=== PATIENT | female | born 1945 | race Two or more races ===

== ENCOUNTER → 2016-05-01 | Outpatient (CLI) | payer MEDICARE ==
--- NOTE | 2016-05-01 14:08 | MM ---
Reason for exam: screening (asymptomatic). Baseline mammogram. History: Family history of breast cancer in 3 sisters. Physical Findings: Nurse did not find any significant physical abnormalities on exam. MG Screening Mammo w CAD Bilateral CC and MLO view(s) were taken. No prior studies available for comparison. The breast tissue is heterogeneously dense. This may lower the sensitivity of mammography. Finding: There are typically benign dystrophic, round calcifications in both breasts. There is no discrete abnormality. These results were verbally communicated with the patient and result sheet given to the patient on 05/01/16. ASSESSMENT: Benign, BI-RAD 2 RECOMMENDATION: Routine screening mammogram of both breasts in 1 year.
--- NOTE | 2016-05-01 14:52 | US ---
EXAMINATION TYPE: US mass soft tissue chest/back DATE OF EXAM: 05/01/2016 1:48 PM COMPARISON: NONE CLINICAL HISTORY: R22.1 Mass L side. Mass for over a year . Been growing for a couple weeks TECHNOLOGIST IMPRESSION: vascular solid mass 4 x 4 x7 cm, multiple sites or 1 contiguous 4-5 mass es Initial images show normal appearing thyroid gland. After this scanning of left neck shows heterogene ous hypoechoic hypervascular solid lesion or lesions. May be one dominant lesion with septations but favor multiple adjacent abnormal lesions. No worrisome fluid collection is seen. IMPRESSION: Suspicious solid supraclavicular masses, abnormal adenopathy or neoplasm is suspected. I maging guided fine-needle aspiration can be performed for tissue analysis. Consider CT correlation to better assess masses and relationship to adjacent structures.
== END | disposition home or self-care (01) ==
LOC: RADMAMWWP 12:33
PROVIDERS: ATTEND Family Medicine
DX: Z12.31 Encounter for screening mammogram for malignant neoplasm of breast (principal); R22.1 Localized swelling, mass and lump, neck; Z80.3 Family history of malignant neoplasm of breast
CPT/HCPCS: 76536; G0202

== ENCOUNTER → 2016-05-08 | Outpatient (CLI) | payer MEDICARE ==
[2016-05-08 16:37] LABS: Blood Urea Nitrogen 15 mg/dL (7-17); Non-African American GFR(MDRD) >60 (>60 ml/min/1.73 sqM)
--- NOTE | 2016-05-08 17:52 | CT ---
EXAMINATION TYPE: CT soft tissue neck w con DATE OF EXAM: 05/08/2016 5:02 PM COMPARISON: NONE HISTORY: 70-year-old female has lump to left side of neck for the past couple of years but getting mu ch larger. TECHNIQUE: Contiguous axial scanning of the neck performed with IV Contrast, patient injected with 10 0 mL of Omnipaque 300. Coronal/sagittal reconstructions performed. CT DLP: 281.0 mGycm Automated exposure control for dose reduction was used. FINDINGS: Partially calcified 1.2 cm right thyroid lobe nodule. Submandibular and parotid glands appear satisfa ctory. Visualized orbits and globes and mastoid air cells are clear. Lobulated mucosal thickening floor of t he left maxillary sinus with a 1.6 cm polyp or mucosal retention cyst. The nasopharynx is clear. The oropharynx is clear. The glottic and subglottic structures as well as the tracheal column and vis ualized upper lungs are clear. Epiglottis and prevertebral soft tissues within normal limits. There is left-sided cervical lymphadenopathy spanning from the upper cervical to lower cervical regio n and back to station 5. Lymph nodes measure up to 1.8 cm upper cervical region, station 2, axial shira ge 50 and sagittal image 48 and with bulky lymphadenopathy extending down to the left supraclavicular region measuring up to 3.3 cm. Additional lymphadenopathy extends to the left thoracic inlet with co nglomerate nodes measuring up to 6.1 cm wide, axial image 25. There is also left axillary lymphadenop athy seen measuring up to 1.4 cm. Lymphadenopathy is mass effect onto the left internal jugular vein with significant narrowing or extr insic compression near the left brachiocephalic vein confluence. Degenerative disc disease particularly at C5-C6. IMPRESSION: BULKY LEFT CERVICAL LYMPHADENOPATHY MEASURING UP TO 3.3 CM WITH LYMPHADENOPATHY EXTENDING DOWN TO THE SUPRACLAVICULAR REGION AND INTO THE LEFT THORACIC INLET. SUGGESTION OF LEFT AXILLARY LYMPHADENOPATHY MEASURING UP TO 1.4 CM WELL. LYMPHOMA IS THE PRIMARY DIFFERENTIAL CONSIDERATION. METASTATIC DISEA SE IS ALSO POSSIBLE. DIRECT TISSUE SAMPLING SHOULD BE CONSIDERED.
== END | disposition home or self-care (01) ==
LOC: RADCTMAIN 15:54
PROVIDERS: ATTEND Family Medicine
DX: R59.0 Localized enlarged lymph nodes (principal)
CPT/HCPCS: 82565; 84520; 70491; 36415; Q9967

== ENCOUNTER 2016-05-20 08:44 | Day surgery (SDC) | payer MEDICARE ==
[2016-05-20 09:25] VITALS: RESP 16; TEMP 98
[2016-05-20] MEDS ORDERED: ALPRAZolam 0.25 MG TAB PO STA (09:25)
[2016-05-20] MEDS ORDERED: amLODIPine 5 MG TAB PO STA (10:03)
[2016-05-20 11:32] VITALS: PULSE 90
--- NOTE | 2016-05-20 11:45 | US ---
EXAMINATION TYPE: US fine needle aspiration, US core biopsy lymph node DATE OF EXAM: 05/20/2016 11:20 AM HISTORY: Lymphadenopathy . FINDINGS: Maximal barrier technique was utilized. The skin overlying a suitable path to the patient' s mass was localized with ultrasound and the overlying skin prepped and draped. Ultrasound was utili zed with sterile technique. Lidocaine was used for local anesthesia. A single pass with a 25-gauge n eedle, single pass with a 21-gauge needle made with ultrasound guidance and aspirated specimens of th e mass were submitted to cytology. A skin jessica was made with a scalpel. An 18-gauge needle was adva nced under direct ultrasound guidance and core specimen obtained of the mass. Specimen submitted in formalin to Pathology. Following the procedure, hemostasis achieved and the patient is discharged in stable condition without complication. IMPRESSION:STATUS POST ULTRASOUND GUIDED CORE BIOPSY OF left neck adenopathy, MASS, PATHOLOGY IS PEND ING. Fine-needle aspiration also performed. THIS PROCEDURE IS PERFORMED BY THE UNDERSIGNED.
[2016-05-20 11:54] VITALS: BP 169/87
== END 2016-05-20 11:56 | disposition home or self-care (01) ==
LOC: RADPROMAIN 08:44
PROVIDERS: ATTEND Family Medicine
DX: R59.0 Localized enlarged lymph nodes (principal)
CPT/HCPCS: 10022; 38505; 76942; 88173; 88305; 88341; 88342; 88365

== ENCOUNTER 2016-06-24 13:24 | Day surgery (SDC) | payer MEDICARE ==
[2016-06-20 12:13] VITALS: BMI 25.4
[~2016-06-24 13:24] MED LIST: DEXAMETHASONE SOD PHOSPHATE 10 MG/ML 1 ML VIAL IV ONE; HEPARIN SODIUM,PORCINE 5,000 UNIT/ML 1 ML VIAL SQ ONE; HYDROmorphone 1 MG/ML 1 ML SYRINGE IVP PRN; LIDOCAINE 1% 20 ML VIAL (10MG/ML) FOR IV START INTRADERMA PRN; MIDAZOLAM 2 MG/2 ML VIAL IV PRN; ONDANSETRON 4 MG/2 ML VIAL IVP ONE; Pre Op ABX Message 1 EACH MISC MISCELLANE ONE; SCOPOLAMINE 1.5MG/72HR PATCH TRANSDERM ONE
[2016-06-24 13:49] VITALS: TEMP 97.7
[2016-06-24] MEDS: LACTATED RINGERS 1,000 ML IV SCH ×4 (13:52→18:43)
[2016-06-24] MEDS ORDERED: HEPARIN SODIUM,PORCINE 5,000 UNIT/ML 1 ML VIAL SQ ONE (15:38)
[2016-06-24] MEDS ORDERED: MIDAZOLAM 2 MG/2 ML VIAL ONE (15:52)
[2016-06-24] MEDS ORDERED: fentaNYL (PF) 50 MCG/ML 2 ML AMP ONE (15:52)
[2016-06-24] MEDS ORDERED: SUCCINYLCHOLINE CHLORIDE 100 MG/5 ML SYR IV ONE (15:52)
[2016-06-24] MEDS ORDERED: LIDOCAINE 1% INJ 10MG/ML (20 ML MDV) ONE (15:52)
[2016-06-24] MEDS ORDERED: KETAMINE 10 MG/ML 20 ML VIAL ONE (15:52)
[2016-06-24] MEDS ORDERED: PROPOFOL 10 MG/ML 20 ML VIAL IV ONE (15:52)
[2016-06-24] MEDS ORDERED: SODIUM CHLORIDE 0.9% 100 ML with ceFAZolin 2,000 MG IV ONE ×2 (16:04)
[2016-06-24] MEDS ORDERED: LIDOCAINE 1% INJ 10MG/ML (20 ML MDV) SQ ONE ×2 (16:22)
--- NOTE | 2016-06-24 16:43 | P.OP ---
Date of Procedure: 06/24/16 Preoperative Diagnosis: Left cervical lymphadenopathy, possible Hodgkin's lymphoma Postoperative Diagnosis: Same Procedure(s) Performed: Left cervical node biopsy Anesthesia: YAMILETHA Surgeon: Jessica Moreira Estimated Blood Loss (ml): 10 IV fluids (ml): 600 Pathology: other (Left cervical node) Condition: stable Disposition: PACU Indications for Procedure: Left cervical adenopathy or biopsy noninclusive Operative Findings: Large left cervical mass Description of Procedure: Patient was taken to the operating room and following induction of general anesthesia the left neck was prepped and draped in a sterile fashion. A supraclavicular incision was made over the area of palpable abnormality. Approximately 4 x 3 cm lymphoid mass was removed. This was done using the Harmonic scalpel as well as suture ligating the soft tissues that were connected this to the surrounding tissues. After we were assured that hemostasis was attained the lesion was sent fresh to pathology. Prior to this a conversation with Dr. Garcia from pathology was entertained and he requested that the specimen was be fresh. We obtained confirmation that the specimen arrived in pathology. All instrument and sponge counts were correct at the end of the case. Patient tolerated procedure in stable condition.
--- NOTE | 2016-06-24 16:45 | P.DS ---
Providers Attending physician: Jessica Moreira Primary care physician: Darcy Santacruz MD Plan - Discharge Summary New Discharge Prescriptions: HYDROcodone/APAP 5-325MG [[place] 5] 1 - 2 each PO Q4H PRN #20 tab PRN Reason: Pain Discharge Medication List Biotin 5,000 mcg PO DAILY 05/07/16 [History] Cholecalciferol [Vitamin D3] 2,000 unit PO DAILY 05/07/16 [History] Lisinopril [Zestril] 10 mg PO QAM 05/07/16 [History] amLODIPine [Norvasc] 10 mg PO QAM 06/20/16 [History] HYDROcodone/APAP 5-325MG [[place] 5] 1 - 2 each PO Q4H PRN #20 tab 06/24/16 [Rx] Follow up Appointment(s)/Referral(s): Jessica Moreira MD [STAFF PHYSICIAN] - 1 Week Mejia Chester MD [STAFF PHYSICIAN] - 1 Week Activity/Diet/Wound Care/Special Instructions: Do not drive today Discharge Disposition: HOME SELF-CARE
[2016-06-24] MEDS ORDERED: LACTATED RINGERS 1,000 ML IV ONE (17:43)
[2016-06-24 18:40] VITALS: BP 176/96; PULSE 107; RESP 20
== END 2016-06-24 18:47 | disposition home or self-care (01) ==
LOC: OR 13:24
PROVIDERS: ATTEND Surgery
DX: C81.41 Lymphocyte-rich Hodgkin lymphoma, lymph nodes of head, face, and neck (principal); I10 Essential (primary) hypertension; Z79.899 Other long term (current) drug therapy
CPT/HCPCS: 38510; 88184; 88185; 88342; 88307; 88341; J2250; J1100; J2405; J2001; J3010; J0690; J0330; J2704

== ENCOUNTER → 2016-07-12 | Outpatient (CLI) | payer MEDICARE ==
--- NOTE | 2016-07-16 10:47 | PE ---
Nuclear medicine PET/CT HISTORY: Neck mass Patient received 12.2 mCi F-18 FDG intravenously and delayed scanning was performed from the skull ba se through the mid thighs. Localization and attenuation correction CT scan was also performed. Correlation to neck CT dated 08 May 2016 Neck and chest: There are multiple nodes including left axillary adenopathy, and cervical adenopathy extending deep t o the sternocleidomastoid muscle on the left to the level of the hyoid bone and inferiorly to the sup raclavicular region, there is corresponding hypermetabolic uptake, SUV values approximately 4-16. The re is no evident lung mass. No pleural or pericardial effusion. The heart is enlarged. There are leanna nary artery calcifications present. No suspicious hypermetabolic uptake within the mediastinum. Infla mmatory changes noted in the left maxillary sinus Abdomen pelvis: There is no retroperitoneal adenopathy. Spleen is enlarged. No suspicious hypermetabo lic uptake. Osseous structures are unremarkable IMPRESSION: Findings compatible with patient's history of lymphoma in the distribution described.
== END | disposition home or self-care (01) ==
LOC: RADPETMAIN 11:27
PROVIDERS: ATTEND Internal Medicine Hematology & Oncology
DX: C81.41 Lymphocyte-rich Hodgkin lymphoma, lymph nodes of head, face, and neck (principal)
CPT/HCPCS: 78815

== ENCOUNTER 2016-07-15 06:18 | Day surgery (SDC) | payer MEDICARE ==
[2016-07-11 10:24] VITALS: BMI 25.4
[~2016-07-15 06:18] MED LIST changes: -DEXAMETHASONE SOD PHOSPHATE 10 MG/ML 1 ML VIAL IV ONE; -HEPARIN SODIUM,PORCINE 5,000 UNIT/ML 1 ML VIAL SQ ONE; -HYDROmorphone 1 MG/ML 1 ML SYRINGE IVP PRN; +LACTATED RINGERS 1,000 ML IV SCH; -LIDOCAINE 1% 20 ML VIAL (10MG/ML) FOR IV START INTRADERMA PRN; -MIDAZOLAM 2 MG/2 ML VIAL IV PRN; -ONDANSETRON 4 MG/2 ML VIAL IVP ONE; -Pre Op ABX Message 1 EACH MISC MISCELLANE ONE; -SCOPOLAMINE 1.5MG/72HR PATCH TRANSDERM ONE
[2016-07-15] MEDS ORDERED: LACTATED RINGERS 1,000 ML IV ONE (06:53)
[2016-07-15 07:01] VITALS: RESP 16; TEMP 96.9
[2016-07-15] MEDS ORDERED: fentaNYL (PF) 50 MCG/ML 2 ML AMP ONE (07:11)
[2016-07-15] MEDS ORDERED: MIDAZOLAM 2 MG/2 ML VIAL ONE (07:11)
[2016-07-15] MEDS ORDERED: PROPOFOL 10 MG/ML 20 ML VIAL IV ONE (07:11)
[2016-07-15] MEDS ORDERED: LIDOCAINE 1% INJ 10MG/ML (20 ML MDV) ONE (07:11)
[2016-07-15 08:00] VITALS: BP 164/81; PULSE 82
[2016-07-15 08:06] LABS: Basophils % (A) 1 %; CH 28.9; CHCM 34.8; Eosinophils # (A) 0.1 k/uL (0-0.7); Eosinophils % (A) 2 %; HCT 39.7 % (34.0-46.0); HDW 2.81; HGB 13.5 gm/dL (11.4-16.0); Luc # (Auto) 0.14; Luc % (Auto) 3; Lymphocytes # (A) 1.1 k/uL (1.0-4.8); Lymphocytes % (A) 20 %; MCH 28.5 pg (25.0-35.0); MCHC 34.1 g/dL (31.0-37.0); MCV 83.4 fL (80.0-100.0); Mean Platelet Volume 7.3; Monocytes # (A) 0.3 k/uL (0-1.0); Monocytes % (A) 5 %; Neutrophils # (A) 3.8 k/uL (1.3-7.7); Neutrophils % (A) 70 %; RBC 4.76 m/uL (3.80-5.40); RDW 13.3 % (11.5-15.5); WBC 5.4 k/uL (3.8-10.6); WBC (Perox) 5.56
--- NOTE | 2016-07-15 12:29 | PCN ---
DATE OF PROCEDURE: 07/15/2016 PREOPERATIVE DIAGNOSIS: Hodgkin's disease. POSTOPERATIVE DIAGNOSIS: Hodgkin's disease. PROCEDURE: Bone marrow aspirate and biopsy. SITE: Right iliac crest. DETAILS: Utilizing sterile technique, the skin overlying the right iliac crest was prepped with Betadine and alcohol. After adequate sterile draping, systemic sedation and local anesthesia with 1% lidocaine, a size 11, 4-inch Jamshidi needle was utilized to access the periosteum with ease. A total of 16 ( ) of aspirate were obtained and ( ) cm bone core biopsy. The patient tolerated the procedure extremely well. There was no immediate procedure-related complication. Total blood less than 1 mL, results pending.
== END 2016-07-15 08:18 | disposition home or self-care (01) ==
LOC: OR 06:18
PROVIDERS: ATTEND Internal Medicine Hematology & Oncology
DX: C81.90 Hodgkin lymphoma, unspecified, unspecified site (principal); I10 Essential (primary) hypertension; E78.5 Hyperlipidemia, unspecified; Z87.891 Personal history of nicotine dependence; Z79.899 Other long term (current) drug therapy
CPT/HCPCS: 85025; 38221; J2250; J2001; J3010; J2704; G0364

== ENCOUNTER → 2016-10-11 | Outpatient (CLI) | payer MEDICARE ==
--- NOTE | 2016-10-12 08:59 | PE ---
EXAMINATION TYPE: PET CT fusion skull to thigh DATE OF EXAM: 10/11/2016 COMPARISON: CT neck 05/08/2016 Prior PET/CT: 07/12/2016 HISTORY: Hodgkin's lymphoma TECHNIQUE: Following the intravenous administration of 15.99 mCi of F-18 FDG, whole body images are performed from the skull base to the midthigh. Images are reviewed on the computer in the coronal, a xial, and sagittal planes. Reconstructed rotating images are created on independent workstation and reviewed on the computer. A localization and attenuation correction CT is performed in conjunction with the PET scan. DLP: 281.58 mGycm SCAN: Subsequent follow-up Blood glucose: 100 mg/dL Average Mediastinum SUV: 1.1 Average Liver SUV: 1.7 FINDINGS: NECK: No abnormal uptake THORAX: No abnormal uptake ABDOMEN: No abnormal uptake PELVIS: No abnormal uptake OSSEOUS STRUCTURES: There is diffuse increased uptake throughout all osseous structures including axi al and appendicular skeleton within the [id number]. Findings could be related to prior treatment. LOCALIZATION CT: There are some degenerative changes noted within the cervical spine. There is an enl arged lymph node in the left posterior neck chain with a transverse dimension of 1.7 cm. This does no t have abnormal uptake within SUV value of 0.9. Scattered small shotty lymphadenopathy is present. Ad ditional enlarged left neck adenopathy is evident without abnormal uptake. Coronary artery calcificat ion is noted. The ascending thoracic aorta at the level of the main pulmonary artery is 3.9 cm. The m ain pulmonary artery the bifurcation is 3.0 cm. COMPARISON: Previous abnormal uptake in enlarged lymphadenopathy within the left neck is not evident. Lymph node size has diminished over the interval. IMPRESSION: 1. No suspicious changes for recurrent or metastatic neoplasm. 2. Diffuse increased uptake throughout the axial and appendicular skeleton be compatible with treatme nt. 3. Enlarged adenopathy within the left neck has diminished in size over the interval does not have ab normal uptake at this time on the PET scan.
== END | disposition home or self-care (01) ==
LOC: RADPETMAIN 08:12
PROVIDERS: ATTEND Internal Medicine Hematology & Oncology
DX: C81.41 Lymphocyte-rich Hodgkin lymphoma, lymph nodes of head, face, and neck (principal); R59.0 Localized enlarged lymph nodes; R94.8 Abnormal results of function studies of other organs and systems
CPT/HCPCS: 78815; A9552

== ENCOUNTER → 2017-04-11 | Outpatient (CLI) | payer MEDICARE ==
--- NOTE | 2017-04-13 10:17 | PE ---
EXAMINATION TYPE: PET CT fusion skull to thigh DATE OF EXAM: 04/11/2017 COMPARISON: Prior PET/CT October 11, [address] neck May 08, 2016. HISTORY: Lymphoma progress study after completing radiation treatment in December. History of chemoth erapy through October. Originally diagnosed in neck in April 2016. TECHNIQUE: Following the intravenous administration of 13.47 mCi of F-18 FDG, whole body images are performed from the skull base to the midthigh. Images are reviewed on the computer in the coronal, a xial, and sagittal planes. Reconstructed rotating images are created on independent workstation and reviewed on the computer. A localization and attenuation correction CT is performed in conjunction with the PET scan. SCAN: Subsequent Scan FINDINGS: SKULL BASE AND NECK: No suspicious increased hypermetabolic uptake on current study. Abnormally enla rged posterior cervical lymph nodes are redemonstrated. Largest measures 2.4 x 1.4 cm axial image 27 felt slightly smaller in width versus prior study. CHEST, MEDIASTINUM, AND HILAR REGION: No suspicious increased hypermetabolic uptake is seen. ABDOMEN AND PELVIS: No suspicious increased hypermetabolic uptake is seen. OSSEOUS STRUCTURES: No suspicious increased hypermetabolic uptake is seen on current study; interval improvement in mild diffuse hypermetabolic seen from prior study. OTHER CT: There is stable right internal jugular Mediport catheter with tip in SVC. There is persistent mucosal thickening inferior maxillary sinuses bilaterally. There is three-vessel coronary artery calcification which is noted marker for coronary artery disease redemonstrated. There is cardiomegaly with tiny pericardial effusion redemonstrated. There is moderate atherosclerotic change of aorta extending into pelvic branch vessels. Uterus is surgically absent. Scattered pelvic phleboliths are seen. There is multilevel facet arthropathy in the mid to lower lumbar spine. IMPRESSION: Marked interval improvement with treatment. No suspicious hypermetabolic uptake seen to suggest recurrent neoplasm. Left-sided neck lymph nodes are not enlarging.
== END | disposition home or self-care (01) ==
LOC: RADPETMAIN 08:17
PROVIDERS: ATTEND Internal Medicine Hematology & Oncology
DX: C81.41 Lymphocyte-rich Hodgkin lymphoma, lymph nodes of head, face, and neck (principal)
CPT/HCPCS: 78815; A9552

== ENCOUNTER → 2017-06-30 | Outpatient (CLI) | payer MEDICARE ==
--- NOTE | 2017-07-01 11:04 | MM ---
Reason for exam: screening (asymptomatic). Last mammogram was performed 1 year and 2 months ago. History: Family history of breast cancer in 3 sisters. Physical Findings: A clinical breast exam by your physician is recommended on an annual basis and results should be correlated with mammographic findings. MG 3D Screening Mammo W/Cad Bilateral CC and MLO view(s) were taken. Prior study comparison: May 01, 2016, bilateral MG screening mammo w CAD. The breast tissue is heterogeneously dense. This may lower the sensitivity of mammography. Finding: There are typically benign calcifications in both breasts. No suspicious abnormality. ASSESSMENT: Benign, BI-RAD 2 RECOMMENDATION: Routine screening mammogram of both breasts in 1 year.
== END | disposition home or self-care (01) ==
LOC: RADMAMWWP 07:57
PROVIDERS: ATTEND Family Medicine
DX: Z12.31 Encounter for screening mammogram for malignant neoplasm of breast (principal)
CPT/HCPCS: 77063; 77067

== ENCOUNTER 2017-07-31 10:16 | Day surgery (SDC) | payer MEDICARE ==
[2017-07-29 10:08] VITALS: BMI 23.6
[2017-07-31 13:01] VITALS: TEMP 97.9
[2017-07-31] MEDS ORDERED: LIDOCAINE 1% 20 ML VIAL (10MG/ML) FOR IV START INTRADERMA ONE (13:10)
[2017-07-31] MEDS ORDERED: LIDOCAINE 1% INJ 10MG/ML (20 ML MDV) ONE (14:20)
[2017-07-31] MEDS ORDERED: PROPOFOL 10 MG/ML 20 ML VIAL IV ONE (14:20)
[2017-07-31 14:42] VITALS: RESP 18
--- NOTE | 2017-07-31 14:47 | P.PCN ---
Date of Procedure: 07/31/17 Procedure(s) Performed: PREOPERATIVE DIAGNOSIS: Colon cancer screening POSTOPERATIVE DIAGNOSIS: Minimal diverticulosis PROCEDURE: Colonoscopy ANESTHESIA: MAC SURGEON: Adilson Michael M.D. SPECIMENS: None ENDOSCOPIC PROCEDURE: The patient was placed on the endoscopy table in the left decubitus position. The Olympus colonoscope was inserted into the anus and passed under direct visualization to the base of the cecum. The appendiceal orifice was visualized. From that point the scope was slowly withdrawn inspecting all surfaces carefully. There were no neoplastic inflammatory or polypoid lesions throughout the cecum, ascending, transverse, descending, sigmoid and rectum. There was minimal diverticulosis noted. Digital rectal examination was normal. The patient was taken to the recovery room in stable condition per anesthesia guidelines. RECOMMENDATIONS: Increase fiber.
[2017-07-31 15:06] VITALS: BP 161/79; PULSE 73
== END 2017-07-31 15:15 | disposition home or self-care (01) ==
LOC: ORWHC2ENDO 10:16
PROVIDERS: ATTEND Surgery
DX: Z12.11 Encounter for screening for malignant neoplasm of colon (principal); K57.90 Diverticulosis of intestine, part unspecified, without perforation or abscess without bleeding; I10 Essential (primary) hypertension; M19.90 Unspecified osteoarthritis, unspecified site; E78.5 Hyperlipidemia, unspecified; Z79.899 Other long term (current) drug therapy
CPT/HCPCS: J2001; J2704; G0121

== ENCOUNTER → 2017-10-10 | Outpatient (CLI) | payer MEDICARE ==
--- NOTE | 2017-10-10 14:14 | PE ---
EXAMINATION TYPE: PET CT fusion skull to thigh DATE OF EXAM: 10/10/2017 COMPARISON: Prior PET/CT April 11, 2017 and older studies. HISTORY: Lymphoma. Originally diagnosed in neck in 2017. Completed chemotherapy October 2016 and radiation treatment in November 2016 TECHNIQUE: Following the intravenous administration of 13.216 mCi of F-18 FDG, whole body images are performed from the skull base to the midthigh. Images are reviewed on the computer in the coronal, axial, and sagittal planes. Reconstructed rotating images are created on independent workstation and reviewed on the computer. A noncontrast CT is performed in conjunction with the PET scan. SCAN: Subsequent Scan FINDINGS: AVERAGE SUV MEDIASTINUM: 0.76 AVERAGE SUV LIVER: 2.23 SKULL BASE AND NECK: There is no new suspicious hypermetabolic uptake in the left sided neck lymph n odes. There is stable or slightly less prominent low dense enlarged left posterior cervical triangle lymph node for reference measuring 2.2 x 1.2 cm on axial image 34 and adjacent prominent but subcenti meter lymph nodes. No significant change in size of the adenopathy is noted. In particular no suspici ous enlargement is seen. CHEST, MEDIASTINUM, AND HILAR REGION: No new areas of abnormal hypermetabolic uptake. ABDOMEN AND PELVIS: No suspicious areas of abnormal hypermetabolic uptake. Mild symmetric uptake near level of both hip joints involving adjacent muscles axial image 188 favors mild inflammation. OSSEOUS STRUCTURES: No new focal areas of suspicious hypermetabolic uptake. OTHER CT: There is interval removal of right internal jugular Mediport catheter. There is persistent mild to moderate lobulated mucosal thickening anterior inferior left maxillary si nus. Mild to moderate calcified plaque bilateral carotid bulbs, left greater than right is redemonstr ated. There is three-vessel coronary artery calcification which is noted marker for coronary artery disease redemonstrated. There is cardiomegaly with tiny pericardial effusion redemonstrated. There is moderate calcified atherosclerotic change of aorta extending into pelvic branch vessels. Den se calcified plaque is seen in tortuous splenic artery. Uterus is surgically absent. Scattered pelvic phleboliths are seen. There is multilevel facet arthropathy in the mid to lower lumbar spine. IMPRESSION: No suspicious new hypermetabolic uptake to suggest neoplastic recurrence.
== END | disposition home or self-care (01) ==
LOC: RADPETMAIN 07:23
PROVIDERS: ATTEND Internal Medicine Hematology & Oncology
DX: C81.41 Lymphocyte-rich Hodgkin lymphoma, lymph nodes of head, face, and neck (principal)
CPT/HCPCS: 78815; A9552

== ENCOUNTER 2018-02-18 15:58 | Emergency (ER) | payer MEDICARE ==
[2018-02-18 16:19] VITALS: TEMP 98
[2018-02-18] MEDS ORDERED: MECLIZINE 12.5 MG TAB PO STA (16:47)
[2018-02-18] MEDS ORDERED: SODIUM CHLORIDE 0.9% 1,000 ML IV STA (16:47)
--- NOTE | 2018-02-18 17:20 | ED ---
Dizziness HPI - General Chief Complaint: Dizziness Stated Complaint: Weakness Time Seen by Provider: 02/18/18 16:30 Source: patient, RN notes reviewed Mode of arrival: wheelchair Limitations: no limitations - History of Present Illness Initial Comments: This is a 72-year-old female with no prior history of vertigo strokes heart disease who states she had the onset this morning of dizziness when she tries to walk or ambulate. She felt like she had a hole onto the wall for stability. She denies any focal weakness to her arms or legs some difficulty with vision mostly with moving her eyes or somewhat moving her head she gets dizzy. No headaches earache sore throat or nose cough no palpitations no other symptoms. She does states she has a remote history of cataract surgery. Additionally she does have recent history of a upper respiratory infection. Per family member stated that she was actually well last night before she went to bed. MD Complaint: dizziness, difficulty walking - Related Data Home Medications Medication Instructions Recorded Confirmed Biotin 10,000 mcg PO PC-SUPPER 05/07/16 02/18/18 Cholecalciferol [Vitamin D3] 2,000 unit PO PC-SUPPER 05/07/16 02/18/18 amLODIPine [Norvasc] 10 mg PO QAM 06/20/16 02/18/18 Turmeric Root Extract [Turmeric] 1,000 mg PO PC-SUPPER 07/11/16 02/18/18 Losartan [Cozaar] 75 mg PO DAILY 07/29/17 02/18/18 Previous Rx's Medication Instructions Recorded Meclizine [Antivert] 25 mg PO TID #20 tab 02/18/18 Allergies Allergy/AdvReac Type Severity Reaction Status Date / Time No Known Allergies Allergy Verified 02/18/18 17:37 Review of Systems ROS Statement: Those systems with pertinent positive or pertinent negative responses have been documented in the HPI. ROS Other: All systems not noted in ROS Statement are negative. Past Medical History Past Medical History: Cancer, Hyperlipidemia, Hypertension, Osteoarthritis (OA) , Skin Disorder Additional Past Medical History / Comment(s): Hodgkins's Lymphoma. RT Sacroiliac Joint Arthritis. BORDERLINE HIGH CHOLESTEROL. DRY PATCH ON RT ELBOW. History of Any Multi-Drug Resistant Organisms: None Reported Past Surgical History: Adenoidectomy, Hysterectomy, Tonsillectomy, Tubal Ligation Additional Past Surgical History / Comment(s): CERVICAL Lymph node bx, Eye surgery for cysts. BONE MARROW BIOPSY. Past Anesthesia/Blood Transfusion Reactions: No Reported Reaction Additional Past Anesthesia/Blood Transfusion Reaction / Comment(s): unknown family hx . no hx blood transfusion. Past Psychological History: No Psychological Hx Reported Smoking Status: Former smoker Past Alcohol Use History: None Reported Past Drug Use History: None Reported - Past Family History Sister(s) Family Medical History: Cancer Additional Family Medical History / Comment(s): 3 sisters hx breast CA Mother Family Medical History: No Reported History Father Family Medical History: No Reported History General Exam - General Exam Comments Initial Comments: This is a well-developed well-nourished awake alert oriented 3 female Limitations: no limitations General appearance: alert, in no apparent distress Head exam: Present: atraumatic, normocephalic, normal inspection Eye exam: Present: normal appearance, PERRL, EOMI. Absent: scleral icterus, conjunctival injection, periorbital swelling ENT exam: Present: normal exam, mucous membranes moist Neck exam: Present: normal inspection, other (No stridor JVD or bruits). Absent : tenderness, meningismus, lymphadenopathy Respiratory exam: Present: normal lung sounds bilaterally. Absent: respiratory distress, wheezes, rales, rhonchi, stridor Cardiovascular Exam: Present: regular rate, normal rhythm, normal heart sounds. Absent: systolic murmur, diastolic murmur, rubs, gallop, clicks GI/Abdominal exam: Present: soft, normal bowel sounds. Absent: distended, tenderness, guarding, rebound, rigid, bruit, pulsatile mass Extremities exam: Present: normal inspection, full ROM, normal capillary refill. Absent: tenderness, pedal edema, joint swelling, calf tenderness Back exam: Present: normal inspection Neurological exam: Present: alert, oriented X3, CN II-XII intact Psychiatric exam: Present: normal affect, normal mood Skin exam: Present: warm, dry, intact, normal color. Absent: rash Course Vital Signs 02/18/18 16:17 Temperature 98 F Pulse Rate 93 Respiratory 18 Rate Blood Pressure 136/80 O2 Sat by Pulse 97 Oximetry EKG Findings - EKG Results: EKG: interpreted by ERMD, WNL, sinus rhythm, normal axis, normal QRS, normal ST/ T, no acute changes (Normal sinus rhythm of 82. Interval 144 QRS 90 QT since QTC 366/[address]-T wave changes some artifact is noted) Medical Decision Making - Medical Decision Making Reevaluation patient finds that she is no longer dizzy she did have one episode of vomiting she does feel improved now the presentation is consistent with benign positional vertigo. I did discuss this with the patient and her family members were present. Patient will be discharged on appropriate medication she is follow-up with her doctor and return when necessary - Lab Data Result diagrams: 02/18/18 17:05 02/18/18 17:05 Lab Results 02/18/18 02/18/18 02/18/18 Range/Units 17:05 17:05 17:05 WBC 4.9 (3.8-10.6) k/uL RBC 5.19 (3.80-5.40) m/uL Hgb 14.7 (11.4-16.0) gm/dL Hct 43.5 (34.0-46.0) % MCV 83.8 (80.0-100.0) fL MCH 28.3 (25.0-35.0) pg MCHC 33.7 (31.0-37.0) g/dL RDW 13.8 (11.5-15.5) % Plt Count 192 (150-450) k/uL Neutrophils % 82 % Lymphocytes % 12 % Monocytes % 3 % Eosinophils % 2 % Basophils % 0 % Neutrophils # 4.0 (1.3-7.7) k/uL Lymphocytes # 0.6 L (1.0-4.8) k/uL Monocytes # 0.2 (0-1.0) k/uL Eosinophils # 0.1 (0-0.7) k/uL Basophils # 0.0 (0-0.2) k/uL Sodium 142 (137-145) mmol/L Potassium 4.3 (3.5-5.1) mmol/L Chloride 107 (98-107) mmol/L Carbon Dioxide 25 (22-30) mmol/L Anion Gap 10 mmol/L BUN 12 (7-17) mg/dL Creatinine 0.83 (0.52-1.04) mg/dL Est GFR (CKD-EPI)AfAm 81 (>60 ml/min/1.73 sqM) Est GFR (CKD-EPI)NonAf 70 (>60 ml/min/1.73 sqM) Glucose 132 H (74-99) mg/dL Calcium 9.9 (8.4-10.2) mg/dL Magnesium 2.1 (1.6-2.3) mg/dL Total Bilirubin 0.8 (0.2-1.3) mg/dL AST 25 (14-36) U/L ALT 26 (9-52) U/L Alkaline Phosphatase 96 (38-126) U/L Total Creatine Kinase 43 (30-135) U/L CK-MB (CK-2) 0.9 (0.0-2.4) ng/mL CK-MB (CK-2) Rel Index 2.1 Troponin I <0.012 (0.000-0.034) ng/mL Total Protein 8.0 (6.3-8.2) g/dL Albumin 4.6 (3.5-5.0) g/dL TSH 0.325 L (0.465-4.680) mIU/L - Radiology Data Radiology results: report reviewed (I did review the imaging and report no acute findings.), image reviewed Disposition Clinical Impression: Benign paroxysmal positional vertigo Disposition: HOME SELF-CARE Condition: Good Instructions: Dizziness (ED), Benign Paroxysmal Positional Vertigo (ED) Prescriptions: Meclizine [Antivert] 25 mg PO TID #20 tab Is patient prescribed a controlled substance at d/c from ED?: No Referrals: Darcy Santacruz MD [Primary Care Provider] - 1-2 days
[2018-02-18 17:24] LABS: Basophils % (A) 0 %; Eosinophils # (A) 0.1 k/uL (0-0.7); Eosinophils % (A) 2 %; HCT 43.5 % (34.0-46.0); HGB 14.7 gm/dL (11.4-16.0); Lymphocytes # (A) 0.6 k/uL (1.0-4.8); Lymphocytes % (A) 12 %; MCH 28.3 pg (25.0-35.0); MCHC 33.7 g/dL (31.0-37.0); MCV 83.8 fL (80.0-100.0); Mean Platelet Volume 6.9; Monocytes # (A) 0.2 k/uL (0-1.0); Monocytes % (A) 3 %; Neutrophils % (A) 82 %; Platelet Count 192 k/uL (150-450); RBC 5.19 m/uL (3.80-5.40); RDW 13.8 % (11.5-15.5); WBC 4.9 k/uL (3.8-10.6)
[2018-02-18 17:34] LABS: Albumin 4.6 g/dL (3.5-5.0); Calcium 9.9 mg/dL (8.4-10.2); Magnesium 2.1 mg/dL (1.6-2.3); Potassium 4.3 mmol/L (3.5-5.1); Total Bilirubin 0.8 mg/dL (0.2-1.3)
[2018-02-18 17:45] LABS: Creatine Kinase 43 U/L (30-135)
[2018-02-18 17:58] LABS: Creatine Kinase MB 0.9 ng/mL (0.0-2.4); Troponin I <0.012 ng/mL (0.000-0.034)
--- NOTE | 2018-02-18 18:29 | CT ---
EXAMINATION TYPE: CT brain wo con DATE OF EXAM: 02/18/2018 COMPARISON: None HISTORY: weakness, vomiting CT DLP: 1107.4 mGycm Automated exposure control for dose reduction was used. FINDINGS: There is cerebral cortical atrophy. There is no mass effect nor midline shift. There is no sign of in tracranial hemorrhage. Calvarium is intact. There are tiny lacunar infarcts in the left and right ant erior internal capsule. IMPRESSION: CEREBRAL ATROPHY. NO ACUTE INTRACRANIAL ABNORMALITY.
[2018-02-18 18:52] LABS: T4, Free (Free Thyroxine) 0.92 ng/dL (0.78-2.19)
[2018-02-18 19:19] VITALS: BP 162/99; PULSE 75; RESP 14
== END 2018-02-18 19:20 | disposition home or self-care (01) ==
LOC: EC 15:58
DX: H81.10 Benign paroxysmal vertigo, unspecified ear (principal); I10 Essential (primary) hypertension; Z87.891 Personal history of nicotine dependence; Z79.899 Other long term (current) drug therapy; Z85.71 Personal history of Hodgkin lymphoma; Z98.49 Cataract extraction status, unspecified eye; Z53.8 Procedure and treatment not carried out for other reasons
CPT/HCPCS: 36415; 70450; 80053; 82550; 82553; 83735; 84439; 84443; 84484; 85025; 93005; 99284

== ENCOUNTER → 2018-03-05 | Outpatient (CLI) | payer MEDICARE ==
--- NOTE | 2018-03-06 12:10 | MR ---
"EXAMINATION TYPE: MR brain wo/w con DATE OF EXAM: 03/05/2018 COMPARISON: CT brain 02/18/2018 HISTORY: Hodgkin lymphoma, vertigo, left facial numbness TECHNIQUE: Multiplanar, multisequence images of the brain and brainstem is performed without and with IV contras t, utilizing 7.5 mL intravenous Gadavist . FINDINGS: Diffusion weighted images demonstrate small scattered foci of restricted diffusion at the l eft lateral margin of the medulla, inferior cerebellar on the left. There is no extra-axial fluid co llection. Extensive scattered hyperintensities are present on inversion recovery T2-weighted sequence s within the deep white matter, periventricular and pericallosal, 7 juxtacortical white matter. Hyper intensity also noted in the distribution of the lateral aspect of the medulla on the left, inferior l eft cerebellar hemisphere. No evident hemorrhage. 2 small areas of encephalomalacia are noted in the right frontal white matter, additionally at the level left cerebellar hemisphere. The ventricular sys tem and cisternal spaces are normal in size and appearance. The brain volume is age appropriate. Pituitary, cervical medullary junction, corpus callosum, cerebellopontine angles are normal. The unscrambler niocervical junction appears within normal limits. Post contrast images demonstrate some questionabl e minimal enhancement along the left cerebellar hemisphere, only punctate foci likely in the distribu tion of the restricted diffusion and due to patient's subacute infarct. Some punctate enhancement pre sent at the level of the posterior occipital lobes near the cortical surface are noted bilaterally, l esions measure only approximately 3 to 6 mm in size. The dural venous sinuses appear patent. The visu alized sinuses are remarkable for inflammatory change in the maxillary sinuses left greater than righ t, and the globes are intact. 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 Probable chronic small vessel ischemic changes. Additional areas of abnormal enhancement a re indeterminate. Consider follow-up as indicated. A Red level critical message alert has been initiated for Darcy Santacruz MD via the [employer] 36 0 | Critical Results System on 03/06/2018 12:05 PM. This message alert has been sent to Darcy mendez MD via the preferences provided by the clinician for the receipt of Radiology Critical Findings. Message ID [id number]."
== END ==
LOC: RADMRIMAIN 17:27
PROVIDERS: ATTEND Family Medicine
DX: R94.02 Abnormal brain scan (principal); C81.90 Hodgkin lymphoma, unspecified, unspecified site
CPT/HCPCS: 70553; A9585

== ENCOUNTER 2018-03-06 14:01 | Emergency (ER) | payer MEDICARE ==
[2018-03-06 14:09] VITALS: BP 153/80; PULSE 105; RESP 18; TEMP 97.5
--- NOTE | 2018-03-06 16:23 | ED ---
Recheck HPI - General Chief Complaint: Recheck/Abnormal Lab/Rx Stated Complaint: Abn MRI results Time Seen by Provider: 03/06/18 14:18 Source: patient, RN notes reviewed Mode of arrival: ambulatory Limitations: no limitations - History of Present Illness Initial Comments: This is a 72-year-old female history of Hodgkin's lymphoma hypertension hyperlipidemia service arthritis who was sent over here from her doctor's office for further evaluation for vertigo. She did resume his seen in February 18 and diagnosed with vertigo she presented that time with vertiginous-like symptoms that had started upon awaking at morning prior to that she was feeling well. She was given Antivert in the emergency department at that time and was symptom-free by the time she left. She was a follow-up with her doctor which she had done twice now lab work was done which showed no acute abnormality other than her hyperlipidemia which is well-known she did have an MRI done which did show evidence of a subacute infarct along the left lateral margin of the medulla and inferior left cerebral hemisphere. I did discuss the case with Dr. Sanchez, he did recommend transfer as we have no inpatient neurology coverage this time and she'll require further evaluation for possible thromboembolic phenomenon. The patient had no further complaints no headache dizziness other than the intermittent dizziness she recalled with movement of her head no focal weakness she did describe some faint numbness her left side of her face. No other - Related Data Home Medications Medication Instructions Recorded Confirmed amLODIPine [Norvasc] 10 mg PO QAM 06/20/16 03/06/18 Losartan [Cozaar] 75 mg PO DAILY 07/29/17 03/06/18 Biotin 5 mg PO DAILY 03/06/18 03/06/18 Cholecalciferol (Vitamin D3) 2,000 unit PO DAILY 03/06/18 03/06/18 [Vitamin D3] Tumeric (Unknown) 1 tab PO DAILY 03/06/18 03/06/18 Allergies Allergy/AdvReac Type Severity Reaction Status Date / Time No Known Allergies Allergy Verified 03/06/18 14:09 Review of Systems ROS Statement: Those systems with pertinent positive or pertinent negative responses have been documented in the HPI. ROS Other: All systems not noted in ROS Statement are negative. Past Medical History Past Medical History: Cancer, Hyperlipidemia, Hypertension, Osteoarthritis (OA) , Skin Disorder Additional Past Medical History / Comment(s): Hodgkins's Lymphoma. RT Sacroiliac Joint Arthritis. BORDERLINE HIGH CHOLESTEROL. DRY PATCH ON RT ELBOW. History of Any Multi-Drug Resistant Organisms: None Reported Past Surgical History: Adenoidectomy, Hysterectomy, Tonsillectomy, Tubal Ligation Additional Past Surgical History / Comment(s): CERVICAL Lymph node bx, Eye surgery for cysts. BONE MARROW BIOPSY. Past Anesthesia/Blood Transfusion Reactions: No Reported Reaction Additional Past Anesthesia/Blood Transfusion Reaction / Comment(s): unknown family hx . no hx blood transfusion. Past Psychological History: No Psychological Hx Reported Smoking Status: Former smoker Past Alcohol Use History: None Reported Past Drug Use History: None Reported - Past Family History Sister(s) Family Medical History: Cancer Additional Family Medical History / Comment(s): 3 sisters hx breast CA Mother Family Medical History: No Reported History Father Family Medical History: No Reported History General Exam - General Exam Comments Initial Comments: Is a well-developed well-nourished awake alert oriented 3 female Limitations: no limitations General appearance: alert, anxious Head exam: Present: atraumatic, normocephalic, normal inspection Eye exam: Present: normal appearance, PERRL, EOMI. Absent: scleral icterus, conjunctival injection, periorbital swelling ENT exam: Present: normal exam, mucous membranes moist Neck exam: Present: normal inspection. Absent: tenderness, meningismus, lymphadenopathy Respiratory exam: Present: normal lung sounds bilaterally. Absent: respiratory distress, wheezes, rales, rhonchi, stridor Cardiovascular Exam: Present: regular rate, normal rhythm, normal heart sounds. Absent: systolic murmur, diastolic murmur, rubs, gallop, clicks GI/Abdominal exam: Present: soft, normal bowel sounds. Absent: distended, tenderness, guarding, rebound, rigid Extremities exam: Present: normal inspection, full ROM, normal capillary refill. Absent: tenderness, pedal edema, joint swelling, calf tenderness Back exam: Present: normal inspection Neurological exam: Present: alert, oriented X3, CN II-XII intact Psychiatric exam: Present: normal affect, normal mood Skin exam: Present: warm, dry, intact, normal color. Absent: rash Course Vital Signs 03/06/18 14:06 Temperature 97.5 F L Pulse Rate 105 H Respiratory 18 Rate Blood Pressure 153/80 O2 Sat by Pulse 96 Oximetry Medical Decision Making - Medical Decision Making I did review labs and findings from her last visits. I did review the imaging and reports. I did discuss the case with the patient her and daughter and after long discussion the patient has agreed to transfer to [facility] for further evaluation. He was prefer to drive themselves as opposed to take an ambulance. I did discuss this with Dr. Stafford at [facility]. Patient will be going directly there. Disposition Clinical Impression: Vertigo, Brainstem infarction Disposition: OTHER INSTITUTION NOT DEFINED Condition: Stable Instructions: Brain Stem Infarction (DC), Vertigo (ED) Additional Instructions: Go directly to [facility] the emergency department for evaluation Is patient prescribed a controlled substance at d/c from ED?: No Referrals: Darcy Santacruz MD [Primary Care Provider] - 1-2 days - Out of Hospital Transfer - Req. Specs Out of Hospital Transfer - Requested Specifics: Other Emergency Center
== END 2018-03-06 16:36 | disposition other institution (70) ==
LOC: EC 14:01
DX: I63.9 Cerebral infarction, unspecified (principal); R29.700 NIHSS score 0; I10 Essential (primary) hypertension; Z85.72 Personal history of non-Hodgkin lymphomas; Z87.891 Personal history of nicotine dependence; Z79.899 Other long term (current) drug therapy
CPT/HCPCS: 99284

== ENCOUNTER → 2018-03-29 | Outpatient (CLI) | payer MEDICARE ==
--- NOTE | 2018-05-01 12:47 | EM ---
EVENT MONITOR A 30-DAY EVENT MONITOR: DATE OF THE STUDY: March 29, 2018. The patient was monitored for 30 days. The baseline rhythm appeared to be a sinus mechanism. During these 4 weeks of monitoring, the patient did have 2 episodes of paroxysmal atrial tachycardia with a heart rate around 100 beats per minute. The patient was asymptomatic during these episodes. No evidence of any advanced AV block. No evidence of any sinus pause or sinus arrest seen. CONCLUSION: 1. This is a 4-week event monitor. 2. The baseline rhythm is sinus mechanism. 3. The patient did have 2 episodes of narrow complex tachycardia consistent with atrial tachycardia. 4. She was asymptomatic during these episodes of atrial tachycardia. 5. No evidence of sinus pause or sinus arrest. 6. The patient reported no symptoms overall. MMODL / IJN: [id number] /
== END | disposition home or self-care (01) ==
LOC: RADECHMAIN 11:53
PROVIDERS: ATTEND Family Medicine
DX: I63.542 Cerebral infarction due to unspecified occlusion or stenosis of left cerebellar artery (principal)
CPT/HCPCS: 93270; 93271

== ENCOUNTER → 2018-08-05 | Outpatient (CLI) | payer MEDICARE ==
--- NOTE | 2018-08-06 10:32 | MM ---
Reason for exam: screening (asymptomatic). Last mammogram was performed 1 year and 1 month ago. History: Patient is postmenopausal and history of other cancer. Family history of breast cancer in 3 sisters. Physical Findings: A clinical breast exam by your physician is recommended on an annual basis and results should be correlated with mammographic findings. MG 3D Screening Mammo W/Cad Bilateral CC and MLO view(s) were taken. Prior study comparison: June 30, 2017, bilateral MG 3d screening mammo w/cad. May 01, 2016, bilateral MG screening mammo w CAD. The breast tissue is heterogeneously dense. This may lower the sensitivity of mammography. Benign appearing bilateral calcifications. No suspicious abnormality. No significant changes when compared with prior studies. ASSESSMENT: Benign, BI-RAD 2 RECOMMENDATION: Routine screening mammogram of both breasts in 1 year.
== END | disposition home or self-care (01) ==
LOC: RADMAMWWP 10:00
PROVIDERS: ATTEND Family Medicine
DX: Z12.31 Encounter for screening mammogram for malignant neoplasm of breast (principal)
CPT/HCPCS: 77063; 77067

== ENCOUNTER → 2019-08-03 | Outpatient (CLI) | payer MEDICARE ==
--- NOTE | 2019-08-03 13:35 | XR ---
EXAM TYPE: LUMBAR SPINE X RAY SERIES COMPARISON: NONE HISTORY: Right-sided pain TECHNIQUE: 4 views are submitted. FINDINGS: Diffuse osteopenia. Vascular calcifications are seen. There is multilevel degenerative disc disease w ith grade 1 anterolisthesis L3 on 4. Slight retrolisthesis of L4 relative to L5. Vascular calcificati ons are seen. Multilevel facet arthropathy with foraminal encroachment suspected at levels L3-S1. Sli ght anterolisthesis L5 relative to S1. No destructive changes. IMPRESSION: 1. Multilevel degenerative disc disease with anterolisthesis as discussed above. Multilevel foraminal encroachment suspected.
--- NOTE | 2019-08-03 13:45 | XR ---
EXAMINATION TYPE: XR Hip Complete RT DATE OF EXAM: 08/03/2019 COMPARISON: None HISTORY: Low back pain with right sciatica TECHNIQUE: 2 view right hip FINDINGS: Femoral head articulates with the acetabulum. Joint spaces preserved. No acute fractures ar e evident. There appears to be a needle within the soft tissues adjacent to the intertrochanteric region of the right hip. No additional foreign bodies identified. IMPRESSION: 1. No acute osseous abnormality right hip. 2. Metallic foreign body adjacent to the intertrochanteric region of the right hip
== END | disposition home or self-care (01) ==
LOC: RADXRMAIN 12:14
PROVIDERS: ATTEND Family Medicine
DX: M51.36 Other intervertebral disc degeneration, lumbar region (principal); M43.16 Spondylolisthesis, lumbar region; S70.251A Superficial foreign body, right hip, initial encounter
CPT/HCPCS: 72100; 73502

== ENCOUNTER → 2019-08-19 | Outpatient (CLI) | payer MEDICARE ==
--- NOTE | 2019-08-22 10:55 | MM ---
Reason for exam: screening (asymptomatic). Last mammogram was performed 1 year ago. History: Patient is postmenopausal and has history of other cancer at age 71. Family history of breast cancer in 3 sisters. Physical Findings: A clinical breast exam by your physician is recommended on an annual basis and results should be correlated with mammographic findings. MG 3D Screening Mammo W/Cad Bilateral CC and MLO view(s) were taken. Prior study comparison: August 05, 2018, bilateral MG 3d screening mammo w/cad. June 30, 2017, bilateral MG 3d screening mammo w/cad. The breast tissue is heterogeneously dense. This may lower the sensitivity of mammography. Course fat necrosis calcifications medial left breast are unchanged. Scattered benign oil cyst calcifications. No significant changes when compared with prior studies. ASSESSMENT: Benign, BI-RAD 2 RECOMMENDATION: Routine screening mammogram of both breasts in 1 year.
== END | disposition home or self-care (01) ==
LOC: RADMAMWWP 15:19
PROVIDERS: ATTEND Family Medicine
DX: Z12.31 Encounter for screening mammogram for malignant neoplasm of breast (principal); Z80.3 Family history of malignant neoplasm of breast
CPT/HCPCS: 77063; 77067

== ENCOUNTER → 2022-05-21 | Outpatient (CLI) | payer MEDICARE ==
--- NOTE | 2022-05-22 09:46 | MM ---
Reason for Exam: Screening (asymptomatic). Last mammogram was performed 2 year(s) and 9 month(s) ago. Patient History: Menarche at age 10. First Full-Term at age 17. Left ovary removed at age 46. Right ovary removed at age 46. Hysterectomy at age 46. Postmenopausal. Other cancer, age 71. Sister had breast cancer. Sister had breast cancer. Sister had breast cancer. Risk Values: Sarahi 5 year model risk: 8.1%. Prior Study Comparison: 06/30/2017 Bilateral Screening Mammogram, [facility]. 08/05/2018 Bilateral Screening Mammogram, [facility]. 08/19/2019 Bilateral Screening Mammogram, [facility]. Tissue Density: The breast tissue is heterogeneously dense. This may lower the sensitivity of mammography. Findings: Analyzed By CAD. Pattern appears symmetrical and stable. Coarse calcifications within the left breast. Benign-appearing round calcifications are present bilaterally. There is the irregular density measuring 1.6 x 1.1 cm within the medial mid left breast 9:00 position. This is 6 cm from the nipple. This area appears changed from comparison. Additional workup is recommended. Overall Assessment: Incomplete: need additional imaging evaluation, BI-RAD 0 Management: Diagnostic Mammogram of the left breast. Diagnostic Breast Ultrasound of the left breast. A negative mammogram report should not preclude additional follow up of suspicious palpable abnormalities. Patient should continue monthly self breast exam. A clinical breast exam by your physician is recommended on an annual basis and results should be correlated with mammographic findings. Electronically signed and approved by: Reymundo Hoffman D.O. Radiologis
== END | disposition home or self-care (01) ==
LOC: RADMAMWWP 11:22
PROVIDERS: ATTEND Family Medicine
DX: Z12.31 Encounter for screening mammogram for malignant neoplasm of breast (principal); Z78.0 Asymptomatic menopausal state; Z80.3 Family history of malignant neoplasm of breast
CPT/HCPCS: 77063; 77067

== ENCOUNTER → 2022-05-23 | Outpatient (CLI) | payer MEDICARE ==
--- NOTE | 2022-05-23 14:20 | MM ---
Reason for Exam: Follow-up at short interval from prior study. Last screening mammogram was performed less than 1 month ago. Patient History: Menarche at age 10. First Full-Term at age 17. Left ovary removed at age 46. Right ovary removed at age 46. Hysterectomy at age 46. Postmenopausal. Other cancer, age 71. Sister had breast cancer. Sister had breast cancer. Sister had breast cancer. Risk Values: Sarahi 5 year model risk: 8.1%. NCI Lifetime model risk: 14.1%. Prior Study Comparison: 08/05/2018 Bilateral Screening Mammogram, [facility]. 08/19/2019 Bilateral Screening Mammogram, [facility]. 05/21/2022 Bilateral MG 3D screening mammo w/cad, [facility]. Tissue Density: Left: The breast tissue is heterogeneously dense. This may lower the sensitivity of mammography. Findings: Analyzed By CAD. There is a new mass which persists upon spot compression imaging at the approximate 9:00 position left breast. The mass measures approximately 1.5 cm and is 6.3 cm from the nipple. Ultrasound is recommended. Overall Assessment: Incomplete: need additional imaging evaluation, BI-RAD 0 Management: Diagnostic Breast Ultrasound of the left breast. A clinical breast exam by your physician is recommended on an annual basis and results should be correlated with mammographic findings. This exam should not preclude additional follow-up of suspicious palpable abnormalities. Results were given to the patient verbally at the time of exam. Electronically signed and approved by: Robert Rubio M.D. Radiologis
--- NOTE | 2022-05-23 14:47 | USB ---
Reason for Exam: Additional evaluation requested from abnormal screening. Patient History: Menarche at age 10. First Full-Term at age 17. Left ovary removed at age 46. Right ovary removed at age 46. Hysterectomy at age 46. Postmenopausal. Other cancer, age 71. Sister had breast cancer. Sister had breast cancer. Sister had breast cancer. Risk Values: Sarahi 5 year model risk: 8.1%. NCI Lifetime model risk: 14.1%. Technique: Method: Targeted. Prior Study Comparison: 08/05/2018 Bilateral Screening Mammogram, [facility]. 08/19/2019 Bilateral Screening Mammogram, [facility]. 05/21/2022 Bilateral MG 3D screening mammo w/cad, [facility]. Findings: The upper inner quadrant of the left breast and the retroareolar of the left breast were scanned. Lobulated irregular mass at the left 9:00 position measures approximately 1.5 x 1.0 cm with adjacent calcifications. No additional masses seen. Left axilla is free of adenopathy. Overall Assessment: Highly suggestive of malignancy, BI-RAD 5 Management: Ultrasound Core Biopsy of the left breast. A clinical breast exam by your physician is recommended on an annual basis and results should be correlated with mammographic findings. This exam should not preclude additional follow-up of suspicious palpable abnormalities. Results were given to the patient verbally at the time of exam. Electronically signed and approved by: Robert Rubio M.D. Radiologis
== END | disposition home or self-care (01) ==
LOC: RADMAMWWP 13:43
PROVIDERS: ATTEND Family Medicine
DX: R92.8 Other abnormal and inconclusive findings on diagnostic imaging of breast (principal); Z78.0 Asymptomatic menopausal state; Z80.3 Family history of malignant neoplasm of breast
CPT/HCPCS: 77065; 76642; G0279; 77061

== ENCOUNTER → 2022-06-11 | Day surgery (SDC) | payer MEDICARE ==
--- NOTE | 2022-06-18 10:43 | MM ---
Reason for Exam: Post Procedure Mammogram. Last screening mammogram was performed less than 1 month ago. Patient History: Menarche at age 10. First Full-Term at age 17. Left ovary removed at age 46. Right ovary removed at age 46. Hysterectomy at age 46. Postmenopausal. Other cancer, age 71. Sister had breast cancer. Sister had breast cancer. Sister had breast cancer. Risk Values: Sarahi 5 year model risk: 8.1%. NCI Lifetime model risk: 14.1%. Prior Study Comparison: 08/19/2019 Bilateral Screening Mammogram, [facility]. 05/21/2022 Bilateral MG 3D screening mammo w/cad, [facility]. 05/23/2022 Left MG 3D work up w/cad , [facility]. Tissue Density: Left: The breast tissue is heterogeneously dense. This may lower the sensitivity of mammography. Pathology Description: Location: 9 o'clock. Marker Left Behind. Cores: 6 Skin Nicks: 1 Gauge: 13 The procedure of ultrasound guided core biopsy was explained to the patient. Benefits, alternatives, and risks were discussed. An informed consent was then obtained. A timeout was performed. The patient was placed in supine positioning for imaging and for the procedure. The overlying skin was prepped and draped in usual sterile fashion. Lidocaine was used as anesthetic into the skin and subcutaneous tissue up to area of concern in the left breast. A small skin jessica was made with surgical scalpel. Under ultrasound guidance, a 12-gauge vacuum assisted biopsy gun device was used to obtain 6 core samples. A biopsy clip was left in lesion. Hydromark core butterfly marker was placed. The patient tolerated the procedure well without any immediate complication. The patient was kept in the radiology department for short stay after the procedure and then discharged home in stable condition. Postprocedure mammogram: The patient was transferred to mammography for physician ordered post procedure mammogram for clip placement verification. Impression: Successful ultrasound guided core biopsy of area of concern in the left breast, full pathology results to follow. Recommendations: 1. Recommendations are pending pathology results. Pathology Results: Result: Malignant, Invasive ductal carcinoma. LEFT BREAST, NINE O'CLOCK, ULTRASOUND GUIDED NEEDLE CORE BIOPSY: Invasive poorly differentiated ductal carcinoma (grade 3). See Surgical Pathology Cancer Case Summary. Overall Assessment: Malignant Assessment: MG diagnostic mammo LT wo CAD. - Left: Known biopsy proven malignancy, BI-RAD 6. Management: Surgical Consultation of the left breast. Electronically signed and approved by: Reymundo Hoffman D.O. Radiologis
== END ==
LOC: RADUSWWP 07:41
PROVIDERS: ATTEND Surgery
DX: C50.912 Malignant neoplasm of unspecified site of left female breast (principal); Z80.3 Family history of malignant neoplasm of breast; Z78.0 Asymptomatic menopausal state; Z90.722 Acquired absence of ovaries, bilateral
CPT/HCPCS: 88305; 88342; 88341; 77065; 19083; A4648

== ENCOUNTER → 2022-07-24 | Outpatient (CLI) | payer MEDICARE ==
[2022-07-24 13:01] VITALS: BP 176/89; PULSE 93; RESP 18; TEMP 97.8
--- NOTE | 2022-07-24 13:15 | P.PN ---
Subjective Progress Note Date: 07/24/22 Principal diagnosis: [id number] stage IB left breast invasive ductal cancer History of Present Illness H&P Date: 07-24-22 Chief Complaint: invasive ductal cancer left breast Lizette is a 77 year old white female seen in consultation for Dr. Rothman regarding a left breast invasive ductal cancer. She had a bilateral mammogram on 05-21-22 which led to further work up of the left breast. A 1.5 cm lesion was seen at the 9 O clock position for which biopsy on 06-11-22 revealed a grade 3 tripple (-) invasive ductal cancer. This was a routine mammogram. She did not feel anything of concern in her breast. She is not complaining of any nipple discharge or skin changes. She has never had any surgery on her breast. The patient's case was presented at tumor board on 5922. The patient was recommended to undergo genetic testing. Additionally it was felt that she could have a lumpectomy and sentinel node biopsy without any neoadjuvant treatment. Depending on results of the genetic testing the patient may wish for a mastectomy. Genetic testing was performed and is negative. I have called the patient discussed this with the patient. Her surgical date is tentatively August 07. I discussed treatment options with the patient and her 2 daughters. We discussed surgical, radiation, and medical oncology treatments. For surgery we have discussed mastectomy plus or minus reconstruction versus lumpectomy. The patient would prefer to have a lumpectomy. Medical Oncology note 07-11-[address] Chester Caffiene: 2 cups/day nicotine: none chocolate: weekly BCP: 3 years hormones: none Family History; 3 sisters: breast cancer brother: brain cancer patient lymphoma told it was cured treated with chemo and radiation Hormonal History: menarche: 10 breast fed: no, age at first : 17 menopause: hysterectomy at 45 no cancer Surgicall history: Hysterectomy lymphoma Medical History: CVA lymphoma HTN osteoarthritis Social History: nicotine: none alcohol: occasional drugs: none - Constitutional Constitutional: Denies chills, Denies fever - EENT Comment: eye surgery ? type of surgery Ears: bilateral: decreased hearing (hearing aids), deny: tinnitus Ears, nose, mouth and throat: Denies headache, Denies sore throat - Breasts Breasts: bilateral: as per HPI - Cardiovascular Cardiovascular: Denies chest pain, Denies shortness of breath - Respiratory Respiratory: Denies cough - Gastrointestinal Gastrointestinal: Denies abdominal pain, Denies diarrhea, Denies nausea, Denies vomiting - Genitourinary (Female) Genitourinary: Denies dysuria, Denies hematuria - Menstruation Menstruation: Reports postmenopausal - Musculoskeletal Comment: sciatic nerve pain - Integumentary Integumentary: Denies pruritus, Denies rash - Neurological Neurological: Denies numbness, Denies weakness - Psychiatric Psychiatric: Denies anxiety, Denies depression - Endocrine Endocrine: Denies fatigue, Denies weight change - Hematologic/Lymphatic Comment: none - Allergic/Immunologic Allergic/Immunologic: Reports as per HPI Past Medical History Past Medical History: Cancer, Hyperlipidemia, Hypertension, Osteoarthritis (OA) Additional Past Medical History / Comment(s): Hodgkins's Lymphoma. RT Sacroiliac Joint Arthritis. BORDERLINE HIGH CHOLESTEROL. History of Any Multi-Drug Resistant Organisms: None Reported Past Surgical History: Adenoidectomy, Hysterectomy, Tonsillectomy, Tubal Ligation Additional Past Surgical History / Comment(s): CERVICAL Lymph node bx, Eye surgery for cysts. BONE MARROW BIOPSY. Past Anesthesia/Blood Transfusion Reactions: No Reported Reaction Additional Past Anesthesia/Blood Transfusion Reaction / Comment(s): unknown family hx . no hx blood transfusion. Past Psychological History: No Psychological Hx Reported Smoking Status: Former smoker Past Alcohol Use History: Rare Additional Past Alcohol Use History / Comment(s): quit smoking over 54 years ago, smoked very short time as a senior in high school. Past Drug Use History: None Reported - Past Family History Sister(s) Family Medical History: Cancer Additional Family Medical History / Comment(s): 3 sisters hx breast CA Mother Family Medical History: No Reported History Father Family Medical History: No Reported History Medications and Allergies Home Medications Medication Instructions Recorded Confirmed Type amLODIPine [Norvasc] 10 mg PO QAM 06/20/16 06/27/22 History Losartan [Cozaar] 75 mg PO DAILY 07/29/17 06/27/22 History Biotin 5 mg PO DAILY 03/06/18 06/27/22 History Cholecalciferol (Vitamin D3) 2,000 unit PO DAILY 03/06/18 06/27/22 History [Vitamin D3] Tumeric (Unknown) 1 tab PO DAILY 03/06/18 06/27/22 History Aspirin [Adult Low Dose Aspirin EC] 81 mg PO DAILY 05/27/22 06/27/22 History Atorvastatin [Lipitor] 80 mg PO HS 06/27/22 06/27/22 History Cholecalciferol [Vitamin D3 (125 125 mcg PO DAILY 06/27/22 06/27/22 History Mcg = 5000 Iu)] Escitalopram [Lexapro] 10 mg PO DAILY 06/27/22 06/27/22 History Mv,Calcium,Min/Iron/Folic/Vitk 1 each PO DAILY 06/27/22 06/27/22 History [One-A-Day Women's Complete Tab] Allergies Allergy/AdvReac Type Severity Reaction Status Date / Time No Known Allergies Allergy Verified 06/27/22 12:23 Objective - Constitutional General appearance: Present: cooperative - EENT Eyes: Present: EOMI ENT: Present: hearing grossly normal - Neck Neck: Present: normal ROM - Respiratory Respiratory: bilateral: CTA - Cardiovascular Rhythm: regular Heart sounds: normal: S1, S2 - Gastrointestinal General gastrointestinal: Present: soft - Integumentary Integumentary: Present: normal turgor - Musculoskeletal Musculoskeletal: Present: gait normal - Psychiatric Psychiatric: Present: A&O x's 3, appropriate affect, intact judgment & insight - Additional findings Additional findings: Breast Exam: BRA; 36DD Inspection: Bilateral grade 2/3 ptosis Palpation: Right breast: Multiple positional exam fibrocystic changes no dominant masses or nodules of concern Right axilla: No adenopathy of concern Left breast: Multi positional exam 9 o'clock position there is some firmness approximately one and half centimeters in size, no other dominant masses or nodules of concern Left axilla: No adenopathy of concern Assessment and Plan Assessment: Impression: T1 N0 M0 triple negative G3 left breast invasive ductal carcinoma 9:00 Prior history of Hodgkin's lymphoma Family history of cancer Fibrocystic breast changes Hypertension Prior history of CVA Plan: Left breast needle localization lumpectomy, possible onco-plastic tissue transfer, left sentinel node injection, left sentinel node biopsy, possible left axillary node dissection Risk and benefits of the procedure were discussed with the patient and her daughter. Risks include but are not limited to bleeding, infection, reaction to the anesthetic. If the margins were tp be positive further tissue removal may be necessary. Additionally the sentinel node biopsy may result in lymphedema, or decreased sensation to the upper arm. Possible injury to the thoracodorsal or long thoracic nerves are also discussed. The patient and her daughter understand and wish to proceed. CC: Dr. Rothman
== END ==
LOC: WWCWWP 11:58
PROVIDERS: ATTEND Surgery
DX: N60.19 Diffuse cystic mastopathy of unspecified breast (principal); I10 Essential (primary) hypertension; M19.90 Unspecified osteoarthritis, unspecified site; Z80.3 Family history of malignant neoplasm of breast; Z85.71 Personal history of Hodgkin lymphoma; Z86.73 Personal history of transient ischemic attack (TIA), and cerebral infarction without residual deficits; Z87.891 Personal history of nicotine dependence; Z17.1 Estrogen receptor negative status [ER-]; Z98.890 Other specified postprocedural states; E78.00 Pure hypercholesterolemia, unspecified; Z79.82 Long term (current) use of aspirin

== ENCOUNTER → 2022-07-28 | Outpatient (CLI) | payer MEDICARE ==
[2022-07-28 15:59] LABS: ALT 21 U/L; AST 20 U/L; Albumin 4.5 d/dL; Albumin/Globulin Ratio 2.05 Ratio; Alkaline Phosphatase 93 U/L; BUN/Creat Ratio 14.22 Ratio; Blood Urea Nitrogen 12.8 mg/dL; Chloride 108 mmol/L; Globulin 2.2 d/dL; Glucose 115 mg/dL; Potassium 5.4 mmol/L; Sodium 143 mmol/L; Total Bilirubin 0.7 mg/dL; Total Protein 6.7 d/dL
[2022-07-28 16:10] LABS: Basophils # (A) 0.02 X 10*3/uL; Basophils % (A) 0.5 %; Eosinophils # (A) 0.05 X 10*3/uL; Eosinophils % (A) 1.3 %; HCT 42.7 %; HGB 13.7 d/dL; Lymphocytes # (A) 1.19 X 10*3/uL; Lymphocytes % (A) 30.1 %; MCH 27.7 pg; MCHC 32.1 d/dL; MCV 86.4 FL; Mean Platelet Volume 10.2 FL; Monocytes # (A) 0.24 X 10*3/uL; Monocytes % (A) 6.1 %; NRBC Per 100 WBC 0 X 10*3/uL; Neutrophils # (A) 2.44 X 10*3/uL; Neutrophils % (A) 61.5 %; Platelet Count 201 X 10*3/uL; RBC 4.94 X 10*6/uL; RDW 12.6 %; WBC 3.96 X 10*3/uL
== END | disposition home or self-care (01) ==
LOC: LABWHC1 10:43
PROVIDERS: ATTEND Family Medicine
DX: Z01.812 Encounter for preprocedural laboratory examination (principal)
CPT/HCPCS: 36415; 80053; 85025

== ENCOUNTER 2022-07-29 07:18 | Day surgery (SDC) | payer MEDICARE ==
[~2022-07-29 07:18] MED LIST changes: -LACTATED RINGERS 1,000 ML IV SCH; +Pre Op ABX Message 1 EACH MISC MISCELLANE ONE
[2022-07-29] MEDS ORDERED: ALPRAZolam 0.25 MG TAB ONE (08:07)
[2022-07-29] MEDS ORDERED: LIDOCAINE 1% (10MG/ML) FOR IV START INTRADERMA ONE (08:15)
[2022-07-29] MEDS ORDERED: LACTATED RINGERS 1,000 ML IV ONE (08:23)
--- NOTE | 2022-07-29 08:41 | P.NAPBC ---
[facility] Queries [facility] patient's case review presented at [facility] tumor board? If no, comment.: Yes Was patient's pathology reviewed at [facility]? If no, comment.: Yes Was breast conservation surgery offered? If no, comment.: Yes Was sentinel node biopsy offered? If no, comment.: Yes Was diagnosis confirmed by percutaneous core biopsy? If no, comment.: Yes Is patient mastectomy patient?: No [facility] Comments: [id number] invasive ductal cancer left breast Clinical Stage: Stage IB invasive ductal left breast cancer
[2022-07-29 08:44] VITALS: TEMP 98.1
[2022-07-29] MEDS ORDERED: LIDOCAINE 1% INJ 10MG/ML (20 ML MDV) SQ ONE (08:57)
[2022-07-29] MEDS ORDERED: PROPOFOL 10 MG/ML 20 ML VIAL IV ONE (09:33)
[2022-07-29] MEDS ORDERED: fentaNYL (PF) 50 MCG/ML 2 ML AMP ONE (09:33)
[2022-07-29] MEDS ORDERED: LIDOCAINE 2% INJ 20 MG/ML (2 ML VIAL) ONE (09:33)
[2022-07-29] MEDS ORDERED: ePHEDrine 50 MG/ML 1 ML VIAL ONE (09:33)
[2022-07-29] MEDS ORDERED: SUCCINYLCHOLINE CHLORIDE 200 MG/10 ML VIAL IV ONE (09:33)
[2022-07-29] MEDS ORDERED: DEXAMETHASONE SOD PHOSPHATE 4 MG/ML 1 ML VIAL IV ONE ×2 (09:38→09:40)
[2022-07-29] MEDS: ONDANSETRON 4 MG/2 ML VIAL ONE ×2 (09:38→09:40)
[2022-07-29] MEDS: HEPARIN SODIUM,PORCINE/PF 5,000 UNIT/0.5 ML SYRINGE SQ PRN ×2 (09:38→09:40)
--- NOTE | 2022-07-29 11:34 | P.OP ---
Date of Procedure: 07/29/22 Preoperative Diagnosis: Left breast invasive ductal carcinoma stage IB Postoperative Diagnosis: Same Procedure(s) Performed: Left breast needle localization lumpectomy, onco-plastic tissue transfer 64 cm, sentinel node biopsy, superficial node resection Anesthesia: MEGHAN Surgeon: Jessica Moreira Estimated Blood Loss (ml): 15 IV fluids (ml): 600 Pathology: other (Breast tissue, axillary lymph nodes left) Condition: stable Disposition: same day Indications for Procedure: Left breast invasive ductal carcinoma grade 3 triple negative Operative Findings: Fibrofatty breast tissue, palpable cancer left breast Description of Procedure: The patient is a 77-year-old white female who had a biopsy-proven left breast invasive ductal carcinoma grade 3 triple negative. The patient was seen first in the radiology department where needle localization of the lesion was performed. [place] node injection was performed. The patient was then brought up to the operative suite. Following induction of anesthesia interrogation of the axilla using the neoprobe revealed radioactivity. The patient was prepped and draped in a sterile fashion. The left axilla was approached initially. Using the neoprobe an incision was made over the area of greatest radioactivity. The axillary tissue was entered. A sentinel node was identified and the 10 second count was 6519. A second sentinel node was identified in its count was 7251. A third sentinel node was identified and its 10 second count was 7421. A 4th sentinel node was identified and its 10 second count was 3702. The axillary tissues were swept inferiorly from the area of the axillary vein being careful to identify and preserve the thoracodorsal and long thoracic nerves. The axillary contents were removed with the sentinel node specimens. No additional axillary adenopathy of concern was identified. The axillary background 10 second count was 40. After we were assured that hemostasis was attained the axilla was irrigated. The deep tissues were closed using 3-0 Vicryl suture. This was followed by closure of the subcutaneous tissue with 3-0 Vicryl suture. A subcuticular suture was placed using a 4-0 Monocryl. Following this the area of the breast was approached. An incision was made and carried down to the shaft of the needle. Surrounding tissue was excised. The specimen was painted for orientation. Dissection was performed posteriorly onto the pectoralis muscle. Anteriorly skin was removed. Additional tissue was removed superior, inferior, medially and laterally. The cavity is was 6 x 3 cm. The superior pillar 6 x 3 cm was formed. Inferior pillar 6 x 3 cm was formed. Total ankle plastic tissue transfer 64 cm. The specimen was painted for orientation and radiographs revealed that the area of concern had been removed. Titanium clips were placed to belinda the cavity. After we were assured that hemostasis was attained Surgicel in powder form was placed.. The deep layers were closed using 3-0 Vicryl suture. This was followed by closure of the subcutaneous tissue with 3-0 Vicryl suture. The subcuticular closure was performed with 4-0 Monocryl. The skin was closed using nylon. The onco plastic tissue transfer was 64 cm. The patient tolerated the procedure in stable condition. All instrument and sponge counts were correct at the end of the case.
--- NOTE | 2022-07-29 11:36 | P.DS ---
Providers Attending physician: Jessica Moreira Primary care physician: Germán Rothman MD Plan - Discharge Summary Discharge Rx Participant: No New Discharge Prescriptions: No Action amLODIPine [Norvasc] 10 mg PO QAM Losartan [Cozaar] 75 mg PO DAILY Biotin 10,000 mcg PO DAILY Tumeric (Unknown) 1 tab PO DAILY Cholecalciferol (Vitamin D3) [Vitamin D3] 2,000 unit PO DAILY Aspirin [Adult Low Dose Aspirin EC] 81 mg PO DAILY Escitalopram [Lexapro] 10 mg PO DAILY Atorvastatin [Lipitor] 80 mg PO HS Mv,Calcium,Min/Iron/Folic/Vitk [One-A-Day Women's Complete Tab] 1 each PO DAILY Discharge Medication List amLODIPine [Norvasc] 10 mg PO QAM 06/20/16 [History] Losartan [Cozaar] 75 mg PO DAILY 07/29/17 [History] Biotin 10,000 mcg PO DAILY 03/06/18 [History] Cholecalciferol (Vitamin D3) [Vitamin D3] 2,000 unit PO DAILY 03/06/18 [History] Tumeric (Unknown) 1 tab PO DAILY 03/06/18 [History] Aspirin [Adult Low Dose Aspirin EC] 81 mg PO DAILY 05/27/22 [History] Atorvastatin [Lipitor] 80 mg PO HS 06/27/22 [History] Escitalopram [Lexapro] 10 mg PO DAILY 06/27/22 [History] Mv,Calcium,Min/Iron/Folic/Vitk [One-A-Day Women's Complete Tab] 1 each PO DAILY 06/27/22 [History] Follow up Appointment(s)/Referral(s): Jessica Moreira MD [STAFF PHYSICIAN] - 08/06/22 9:20 am Activity/Diet/Wound Care/Special Instructions: Do not drive until seen by Dr. Morris Wear surgical bra at all times May shower after [address] if taking narcotic pain medicine Discharge Disposition: HOME SELF-CARE
[2022-07-29 13:51] VITALS: BP 126/79; PULSE 100; RESP 16
--- NOTE | 2022-07-29 15:11 | NM ---
EXAMINATION TYPE: NM sentinel node injection DATE OF EXAM: 07/29/2022 COMPARISON: 06/11/2022 CLINICAL INDICATION: Female, 77 years old with history of LEFT BREAST CA; TECHNIQUE AND FINDINGS: The procedure of sentinel lymph node injection was explained to the patient. The benefits, alternatives, and risks were discussed. An informed consent was then obtained. Overlying skin is cleaned with sterile alcohol. Following this, 533 uCi Tc99m Tilmanocept was inject ed in the upper outer aspect of the left nipple intradermally. The patient tolerated the procedure well without any immediate complication. The patient was kept in the radiology department for short stay after the procedure and then taken to surgery for surgical p rocedure what is presumed intraoperative gamma probe will be used for sentinel lymph node detection. IMPRESSION: Left breast radiotracer injection for sentinel node localization as above.
--- NOTE | 2022-08-05 08:49 | MM ---
Pathology Description: Approach: Medial to Lateral Needle Type: 7 cm Kopan The procedure of needle localization with wire placement and than surgical excision was explained to the patient. Benefits, alternatives, and risks were discussed. An informed consent was then obtained. The shortest pathway for procedure was chosen. Shortest pathway was a medial approach. The overlying skin was prepped and draped in usual sterile fashion. Lidocaine was used as anesthetic into the skin and subcutaneous tissue up to the level of area of concern. A 7 cm Kopans needle was used. It was placed via a medial approach under mammographic guidance. Subsequent 90 degrees mammogram show the needle to be in satisfactory position relative to the targeted area. At this point, wire was placed and the needle was withdrawn. The wire was fixed to patient's skin. Images were marked for surgeon. The patient tolerated the procedure well without any immediate complication. The patient was kept in the radiology department for short stay after the procedure and then taken to surgery for surgical excision. Targeted mass, coil clip, and wire are identified in specimen mammogram. The patient was kept in hospital for short stay after the procedure and then discharged home in stable condition. IMPRESSION: Successful, uncomplicated needle localization with wire placement and surgical excision of biopsy-proven 9:00 left breast cancer; full pathology results to follow. Pathology Results: Result: Malignant, Invasive ductal carcinoma. A. LEFT BREAST, LUMPECTOMY: Invasive poorly differentiated ductal carcinoma (Grade 3), margins negative. See Surgical Pathology Cancer Case Summary. B. SENTINEL NODE #1: Lymph node with partial fat replacement, negative for metastasis. CK7 and NANDA immunoperoxidase stains performed on blocks B1 and B2 are negative (controls appropriate). C. SENTINEL NODE #2: Lymph node with partial fat replacement, negative for metastasis. CK7 and NANDA immunoperoxidase stains performed on blocks C1, C2, C3 and C4 are confirmatory (controls appropriate). D. SENTINEL NODE #3: Lymph node negative for metastasis. CK7 and NANDA immunoperoxidase stains performed on block D1 are confirmatory (controls appropriate). E. SENTINEL NODE #4: Three lymph nodes negative for metastasis. CK7 and NANDA immunoperoxidase stains performed on blocks E1, E2, E3, E4, E5 and E6 are confirmatory (controls appropriate). F. LEFT BREAST, NEW SUPERIOR EXTERNAL SURFACE, EXCISION: Benign breast with fibrocystic changes. G. LEFT BREAST, NEW MEDIAL EXTERNAL SURFACE, EXCISION: Benign breast with fibrocystic changes. H. LEFT BREAST, NEW LATERAL EXTERNAL SURFACE, EXCISION: Benign breast with fibrocystic changes and fibroadipose tissue. I. LEFT BREAST, NEW INFERIOR EXTERNAL SURFACE, EXCISION: Benign breast with fibrocystic changes and duct ectasia. J. LEFT BREAST, NEW ANTERIOR SKIN: Benign skin and subcutaneous tissue. Overall Assessment: Malignant Management: Surgical Consultation Electronically signed and approved by: Gail Jackson M.D. Radiologist
== END 2022-07-29 14:15 | disposition home or self-care (01) ==
LOC: OR 07:18
PROVIDERS: ATTEND Surgery
DX: C50.912 Malignant neoplasm of unspecified site of left female breast (principal); Z17.1 Estrogen receptor negative status [ER-]; I10 Essential (primary) hypertension; E78.5 Hyperlipidemia, unspecified; Z87.891 Personal history of nicotine dependence; Z85.71 Personal history of Hodgkin lymphoma; Z86.73 Personal history of transient ischemic attack (TIA), and cerebral infarction without residual deficits; Z79.899 Other long term (current) drug therapy
CPT/HCPCS: 19301; 38525; 14301; 88305; 88342; 88307; 88341; 76098; 38792; C1819; A9520; J0330; J1100; J2405; J2001 ×2; J3010; J2704; J1644

== ENCOUNTER → 2022-08-06 | Outpatient (CLI) | payer MEDICARE ==
--- NOTE | 2022-08-06 09:40 | P.PN ---
Progress Note - Text Progress Note Date: 08/06/22 Lizette is a 77-year-old white female status post left breast lumpectomy and sentinel node biopsy on 6622. Pathology revealed a 1.5 cm invasive ductal carcinoma all margins negative. She had 4 lymph nodes removed all negative. The patient states post procedure she did well with no complaints. 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 Rothman
[2022-08-06 10:26] VITALS: BP 158/79; PULSE 81; RESP 17; TEMP 98
== END ==
LOC: WWCWWP 09:20
PROVIDERS: ATTEND Surgery
DX: Z90.12 Acquired absence of left breast and nipple (principal)

== ENCOUNTER → 2022-12-05 | Outpatient (CLI) | payer MEDICARE ==
[2022-12-05 11:01] VITALS: BP 157/75; PULSE 85; RESP 17; TEMP 98.5
--- NOTE | 2022-12-05 11:20 | P.PN ---
Subjective Progress Note Date: 12/05/22 Principal diagnosis: Hodgkins lymphoms 2016, left breast invasive ductal cancer 2022 [id number](-) Chief Complaint: invasive ductal cancer left breast 2022 Lizette is a 77 year old white female seen in consultation for Dr. Rothman regarding a left breast invasive ductal cancer. She had a bilateral mammogram on 05-21-22 which led to further work up of the left breast. A 1.5 cm lesion was seen at the 9 O clock position for which biopsy on 06-11-22 revealed a grade 3 tripple (-) invasive ductal cancer. This was a routine mammogram. She did not feel anything of concern in her breast. She was not complaining of any nipple discharge or skin changes. She had never had any surgery on her breast. She underwent a left breast lumpectomyu and SNB on 07-29-22. Pathology revelaed a 1.5 cm lesion of invasive ductal cancer, all margins (-). She had 4 nodes removed all (-). She is not complaining of any new lumps masses or nodules of concern in either breast. The patient had a history of Hodgkin's lymphoma in 2017 treated with chemo and radiation. Note medical oncology 10-22-22 reviewed; received TC chemotherapy she completed 4 sessions she is going to start radiation on December 15, 2022 Caffiene: 2 cups/day nicotine: none chocolate: weekly BCP: 3 years hormones: none Family History; 3 sisters: breast cancer brother: brain cancer patient lymphoma told it was cured treated with chemo and radiation Hormonal History: menarche: 10 breast fed: no, age at first : 17 menopause: hysterectomy at 45 no cancer Surgicall history: Hysterectomy lymphoma Medical History: CVA lymphoma HTN osteoarthritis Social History: nicotine: none alcohol: occasional drugs: none - Constitutional Constitutional: Denies chills, Denies fever - EENT Comment: eye surgery ? type of surgery Ears: bilateral: decreased hearing (hearing aids), deny: tinnitus Ears, nose, mouth and throat: Denies headache, Denies sore throat - Breasts Breasts: bilateral: as per HPI - Cardiovascular Cardiovascular: Denies chest pain, Denies shortness of breath - Respiratory Respiratory: Denies cough, Denies 7 - Gastrointestinal Gastrointestinal: Denies abdominal pain, Denies diarrhea, Denies nausea, Denies vomiting - Genitourinary (Female) Genitourinary: Denies dysuria, Denies hematuria - Menstruation Menstruation: Reports postmenopausal - Musculoskeletal Comment: sciatic nerve pain - Integumentary Integumentary: Denies pruritus, Denies rash - Neurological Neurological: Denies numbness, Denies weakness - Psychiatric Psychiatric: Denies anxiety, Denies depression - Endocrine Endocrine: Denies fatigue, Denies weight change - Hematologic/Lymphatic Comment: none - Allergic/Immunologic Allergic/Immunologic: Reports as per HPI Past Medical History Past Medical History: Cancer, Hyperlipidemia, Hypertension, Osteoarthritis (OA) Additional Past Medical History / Comment(s): Hodgkins's Lymphoma. RT Sacroiliac Joint Arthritis. BORDERLINE HIGH CHOLESTEROL. History of Any Multi-Drug Resistant Organisms: None Reported Past Surgical History: Adenoidectomy, Hysterectomy, Tonsillectomy, Tubal Ligati on Additional Past Surgical History / Comment(s): CERVICAL Lymph node bx, Eye surgery for cysts. BONE MARROW BIOPSY. Past Anesthesia/Blood Transfusion Reactions: No Reported Reaction Additional Past Anesthesia/Blood Transfusion Reaction / Comment(s): unknown family hx . no hx blood transfusion. Past Psychological History: No Psychological Hx Reported Smoking Status: Former smoker Past Alcohol Use History: Rare Additional Past Alcohol Use History / Comment(s): quit smoking over 54 years ago, smoked very short time as a senior in high school. Past Drug Use History: None Reported - Past Family History Sister(s) Family Medical History: Cancer Additional Family Medical History / Comment(s): 3 sisters hx breast CA Mother Family Medical History: No Reported History Father Family Medical History: No Reported History Medications and Allergies Home Medications Medication Instructions Recorded Confirmed Type amLODIPine [Norvasc] 10 mg PO QAM 06/20/16 06/27/22 History Losartan [Cozaar] 75 mg PO DAILY 07/29/17 06/27/22 History Biotin 5 mg PO DAILY 03/06/18 06/27/22 History Cholecalciferol (Vitamin D3) 2,000 unit PO DAILY 03/06/18 06/27/22 History [Vitamin D3] Tumeric (Unknown) 1 tab PO DAILY 03/06/18 06/27/22 History Aspirin [Adult Low Dose Aspirin EC] 81 mg PO DAILY 05/27/22 06/27/22 History Atorvastatin [Lipitor] 80 mg PO HS 06/27/22 06/27/22 History Cholecalciferol [Vitamin D3 (125 125 mcg PO DAILY 06/27/22 06/27/22 History Mcg = 5000 Iu)] Escitalopram [Lexapro] 10 mg PO DAILY 06/27/22 06/27/22 History Mv,Calcium,Min/Iron/Folic/Vitk 1 each PO DAILY 06/27/22 06/27/22 History [One-A-Day Women's Complete Tab] Allergies Allergy/AdvReac Type Severity Reaction Status Date / Time No Known Allergies Allergy Verified 06/27/22 12:23 Objective - Vital Signs Vital signs: Vital Signs Temp 98.5 F 12/05/22 10:53 Pulse 85 12/05/22 10:53 Resp 17 12/05/22 10:53 BP 157/75 12/05/22 10:53 Pulse Ox 97 12/05/22 10:53 FiO2 Intake & Output 12/04/22 12/05/22 12/05/22 18:59 06:59 18:59 Weight 55.792 kg - Constitutional General appearance: Present: cooperative - EENT Eyes: Present: EOMI ENT: Present: hearing grossly normal - Neck Neck: Present: normal ROM - Respiratory Respiratory: bilateral: CTA - Cardiovascular Heart sounds: normal: S1, S2 - Gastrointestinal General gastrointestinal: Present: soft - Integumentary Integumentary: Present: normal turgor - Musculoskeletal Musculoskeletal Comment(s): poor balance - Psychiatric Psychiatric: Present: A&O x's 3, appropriate affect, intact judgment & insight - Additional findings Additional findings: Breast Exam: BRA: 36D Inspection: Well-healed scar left breast from lumpectomy, bilateral grade 2 ptosis Palpation: Right breast: Multiple positional exam no dominant masses or nodules of concern Right axilla: No adenopathy of concern Left breast: Both positional exam well-healed scar from prior surgery no dominant masses or nodules of concern Left axilla: No adenopathy of concern Assessment and Plan Assessment: Impression: T1 N0 M0 triple negative G3 left breast invasive ductal carcinoma 9:00 Prior history of lymphoma Family history of cancer Fibrocystic breast changes Hypertension Prior history of CVA Patient has completed chemotherapy Plan: This going to start radiation therapy in the near future Bilateral mammogram April 2023 Appearance 4 months Patient follow-up sooner any questions or concerns CC: Dr. Rothman
== END ==
LOC: WWCWWP 10:38
PROVIDERS: ATTEND Surgery
DX: R92.8 Other abnormal and inconclusive findings on diagnostic imaging of breast (principal); C50.912 Malignant neoplasm of unspecified site of left female breast; C81.90 Hodgkin lymphoma, unspecified, unspecified site; E78.00 Pure hypercholesterolemia, unspecified; I10 Essential (primary) hypertension; M19.90 Unspecified osteoarthritis, unspecified site; N60.19 Diffuse cystic mastopathy of unspecified breast; Z17.1 Estrogen receptor negative status [ER-]; Z80.3 Family history of malignant neoplasm of breast; Z86.73 Personal history of transient ischemic attack (TIA), and cerebral infarction without residual deficits; Z87.891 Personal history of nicotine dependence; Z92.3 Personal history of irradiation; Z79.82 Long term (current) use of aspirin; Z79.899 Other long term (current) drug therapy

== ENCOUNTER → 2023-05-08 | Outpatient (CLI) | payer MEDICARE ==
[2023-05-08 11:14] VITALS: BP 156/72; PULSE 64; RESP 15; TEMP 98.1
--- NOTE | 2023-05-08 11:20 | P.PN ---
Subjective Progress Note Date: 05/08/23 05-08-23 Principal diagnosis: 12-05-22 Hodgkins lymphoms 2016, left breast invasive ductal cancer 2022 [id number](-) Chief Complaint: invasive ductal cancer left breast 2022 Lizette is a 77 year old white female seen in consultation for Dr. Stephan hodges a left breast invasive ductal cancer. She had a bilateral mammogram on 05-21-22 which led to further work up of the left breast. A 1.5 cm lesion was seen at the 9 O clock position for which biopsy on 06-11-22 revealed a grade 3 tripple (-) invasive ductal cancer. This was a routine mammogram. She did not feel anything of concern in her breast. She was not complaining of any nipple discharge or skin changes. She had never had any surgery on her breast. She underwent a left breast lumpectomyu and SNB on 07-29-22. Pathology revelaed a 1.5 cm lesion of invasive ductal cancer, all margins (-). She had 4 nodes removed all (-). She is not complaining of any new lumps masses or nodules of concern in either breast. The patient had a history of Hodgkin's lymphoma in 2017 treated with chemo and radiation. Note medical oncology 10-22-22 reviewed; received TC chemotherapy she completed 4 sessions she is going to start radiation on December 15, 2022 05-08-23 note medical oncology 01-09-23 reviewed note radiation oncology reviewed: 02-20-23 She underwent a left breast lumpectomy and SNB on 07-29-22. Pathology revelaed a 1.5 cm lesion of invasive ductal cancer, all margins (-). She had 4 nodes removed all (-). She is complaining of firmness of her left breast which started about two weeks ago. She is not complaining of any new lumps masses or nodules of concern The patient had a history of Hodgkin's lymphoma in 2017 treated with chemo and radiation. Caffiene: 2 cups/day nicotine: none chocolate: weekly BCP: 3 years hormones: none Family History; 3 sisters: breast cancer brother: brain cancer patient lymphoma told it was cured treated with chemo and radiation Hormonal History: menarche: 10 breast fed: no, age at first : 17 menopause: hysterectomy at 45 no cancer Surgicall history: Hysterectomy lymphoma Medical History: CVA lymphoma HTN osteoarthritis Social History: nicotine: none alcohol: occasional drugs: none - Constitutional Constitutional: Denies chills, Denies fever - EENT Comment: eye surgery ? type of surgery Ears: bilateral: decreased hearing (hearing aids), deny: tinnitus Ears, nose, mouth and throat: Denies headache, Denies sore throat - Breasts Breasts: bilateral: as per HPI - Cardiovascular Cardiovascular: Denies chest pain, Denies shortness of breath - Respiratory Respiratory: Denies cough - Gastrointestinal Gastrointestinal: Denies abdominal pain, Denies diarrhea, Denies nausea, Denies vomiting - Genitourinary (Female) Genitourinary: Denies dysuria, Denies hematuria - Menstruation Menstruation: Reports postmenopausal - Musculoskeletal Comment: sciatic nerve pain - Integumentary Integumentary: Denies pruritus, Denies rash - Neurological Neurological: Denies numbness, Denies weakness - Psychiatric Psychiatric: Denies anxiety, Denies depression - Endocrine Endocrine: Denies fatigue, Denies weight change - Hematologic/Lymphatic Comment: none - Allergic/Immunologic Allergic/Immunologic: Reports as per HPI Past Medical History Past Medical History: Cancer, Hyperlipidemia, Hypertension, Osteoarthritis (OA) Additional Past Medical History / Comment(s): Hodgkins's Lymphoma. RT Sacroiliac Joint Arthritis. BORDERLINE HIGH CHOLESTEROL. History of Any Multi-Drug Resistant Organisms: None Reported Past Surgical History: Adenoidectomy, Hysterectomy, Tonsillectomy, Tubal Ligation Additional Past Surgical History / Comment(s): CERVICAL Lymph node bx, Eye surgery for cysts. BONE MARROW BIOPSY. Past Anesthesia/Blood Transfusion Reactions: No Reported Reaction Additional Past Anesthesia/Blood Transfusion Reaction / Comment(s): unknown family hx . no hx blood transfusion. Past Psychological History: No Psychological Hx Reported Smoking Status: Former smoker Past Alcohol Use History: Rare Additional Past Alcohol Use History / Comment(s): quit smoking over 54 years ago, smoked very short time as a senior in high school. Past Drug Use History: None Reported - Past Family History Sister(s) Family Medical History: Cancer Additional Family Medical History / Comment(s): 3 sisters hx breast CA Mother Family Medical History: No Reported History Father Family Medical History: No Reported History Medications and Allergies Home Medications Medication Instructions Recorded Confirmed Type amLODIPine [Norvasc] 10 mg PO QAM 06/20/16 06/27/22 History Losartan [Cozaar] 75 mg PO DAILY 07/29/17 06/27/22 History Biotin 5 mg PO DAILY 03/06/18 06/27/22 History Cholecalciferol (Vitamin D3) 2,000 unit PO DAILY 03/06/18 06/27/22 History [Vitamin D3] Tumeric (Unknown) 1 tab PO DAILY 03/06/18 06/27/22 History Aspirin [Adult Low Dose Aspirin EC] 81 mg PO DAILY 05/27/22 06/27/22 History Atorvastatin [Lipitor] 80 mg PO HS 06/27/22 06/27/22 History Cholecalciferol [Vitamin D3 (125 125 mcg PO DAILY 06/27/22 06/27/22 History Mcg = 5000 Iu)] Escitalopram [Lexapro] 10 mg PO DAILY 06/27/22 06/27/22 History Mv,Calcium,Min/Iron/Folic/Vitk 1 each PO DAILY 06/27/22 06/27/22 History [One-A-Day Women's Complete Tab] Allergies Allergy/AdvReac Type Severity Reaction Status Date / Time No Known Allergies Allergy Verified 06/27/22 12:23 Objective - Vital Signs Vital signs: Intake & Output 05/07/23 05/08/23 05/08/23 18:59 06:59 18:59 Weight 53.977 kg - Constitutional General appearance: Present: cooperative - EENT Eyes: Present: EOMI ENT: Present: hearing grossly normal - Neck Neck: Present: normal ROM - Respiratory Respiratory: bilateral: CTA - Cardiovascular Heart sounds: normal: S1, S2 - Integumentary Integumentary: Present: normal turgor - Musculoskeletal Musculoskeletal: Present: gait normal - Psychiatric Psychiatric: Present: A&O x's 3, appropriate affect, intact judgment & insight - Additional findings Additional findings: Breast Exam: BRA: 36D Inspection: Well-healed scar left breast from lumpectomy, bilateral grade 2 ptosis; inner quadrant area Palpation: Right breast: Multi positional exam no dominant masses or nodules of concern Right axilla: No adenopathy of concern Left breast: multi- positional exam well-healed scar from prior surgery fullness upper inner quadrant area approximately 8 cm x 8 cm consistent with most likely postoperative seroma Left axilla: No adenopathy of concern Assessment and Plan Assessment: Impression: T1 N0 M0 triple 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 Rothman
== END ==
LOC: WWCWWP 10:17
PROVIDERS: ATTEND Surgery
DX: C50.912 Malignant neoplasm of unspecified site of left female breast (principal); C81.90 Hodgkin lymphoma, unspecified, unspecified site; N60.19 Diffuse cystic mastopathy of unspecified breast; I10 Essential (primary) hypertension; N64.89 Other specified disorders of breast; Z80.3 Family history of malignant neoplasm of breast; Z86.73 Personal history of transient ischemic attack (TIA), and cerebral infarction without residual deficits; Z92.3 Personal history of irradiation; Z92.21 Personal history of antineoplastic chemotherapy; Z17.1 Estrogen receptor negative status [ER-]; Z79.82 Long term (current) use of aspirin; Z79.899 Other long term (current) drug therapy

== ENCOUNTER → 2023-06-05 | Outpatient (CLI) | payer MEDICARE ==
--- NOTE | 2023-06-05 10:34 | P.PN ---
Subjective Progress Note Date: 06/05/23 Aspiration of seroma left breast Area of concern was prepped using Betadine An 18-gauge needle on a 20 cc syringe was inserted into the area of concern 100 cc of serous fluid was removed The patient tolerated the procedure with no difficulty There was complete resolution of the seroma The patient will follow-up in the next several weeks after her bilateral mammogram Patient to follow-up sooner any questions or concerns Original Note: Subjective Progress Note Date: 05/08/23 05-08-23 Principal diagnosis: 12-05-22 Hodgkins lymphoms 2015, left breast invasive ductal cancer 2022 [id number](-) Chief Complaint: invasive ductal cancer left breast 2022 Lizette is a 77 year old white female seen in consultation for Dr. Rothman regarding a left breast invasive ductal cancer. She had a bilateral mammogram on 05-21-22 which led to further work up of the left breast. A 1.5 cm lesion was seen at the 9 O clock position for which biopsy on 06-11-22 revealed a grade 3 tripple (-) invasive ductal cancer. This was a routine mammogram. She did not feel anything of concern in her breast. She was not complaining of any nipple discharge or skin changes. She had never had any surgery on her breast. She underwent a left breast lumpectomyu and SNB on 07-29-22. Pathology revelaed a 1.5 cm lesion of invasive ductal cancer, all margins (-). She had 4 nodes removed all (-). She is not complaining of any new lumps masses or nodules of concern in either breast. The patient had a history of Hodgkin's lymphoma in 2017 treated with chemo and radiation. Note medical oncology 10-22-22 reviewed; received TC chemotherapy she completed 4 sessions she is going to start radiation on December 15, 2022 05-08-23 note medical oncology 01-09-23 reviewed note radiation oncology reviewed: 02-20-23 She underwent a left breast lumpectomy and SNB on 07-29-22. Pathology revelaed a 1.5 cm lesion of invasive ductal cancer, all margins (-). She had 4 nodes removed all (-). She is complaining of firmness of her left breast which started about two weeks ago. She is not complaining of any new lumps masses or nodules of concern The patient had a history of Hodgkin's lymphoma in 2017 treated with chemo and radiation. 06-05-23 seroma aspirated left breast 04-13-23 no malignant cells Bilateral mammogram 05-13-23 BIRAD 2 note medical oncology 04-15-23 reviewed, to continue on annestrazole She underwent a left breast lumpectomy and SNB on 07-29-22. Pathology revelaed a 1.5 cm lesion of invasive ductal cancer, all margins (-). She had 4 nodes removed all (-). She was complaining of firmness in her left breast on her last appointment and the seroma was aspirated with resolution of this firmness. She has no complaints at this time. The patient had a history of Hodgkin's lymphoma in 2017 treated with chemo and radiation. The patient is complaining of back pain today which starts from the cervical area to the lumbar area. She has had back surgery in the past. Caffiene: 2 cups/day nicotine: none chocolate: weekly BCP: 3 years hormones: none Family History; 3 sisters: breast cancer brother: brain cancer patient lymphoma told it was cured treated with chemo and radiation Hormonal History: menarche: 10 breast fed: no, age at first : 17 menopause: hysterectomy at 45 no cancer Surgicall history: Hysterectomy lymphoma Medical History: CVA lymphoma HTN osteoarthritis Social History: nicotine: none alcohol: occasional drugs: none - Constitutional Constitutional: Denies chills, Denies fever - EENT Comment: eye surgery ? type of surgery Ears: bilateral: decreased hearing (hearing aids), deny: tinnitus Ears, nose, mouth and throat: Denies headache, Denies sore throat - Breasts Breasts: bilateral: as per HPI - Cardiovascular Cardiovascular: Denies chest pain, Denies shortness of breath - Respiratory Respiratory: Denies cough - Gastrointestinal Gastrointestinal: Denies abdominal pain, Denies diarrhea, Denies nausea, Denies vomiting - Genitourinary (Female) Genitourinary: Denies dysuria, Denies hematuria - Menstruation Menstruation: Reports postmenopausal - Musculoskeletal Comment: sciatic nerve pain - Integumentary Integumentary: Denies pruritus, Denies rash - Neurological Neurological: Denies numbness, Denies weakness - Psychiatric Psychiatric: Denies anxiety, Denies depression - Endocrine Endocrine: Denies fatigue, Denies weight change - Hematologic/Lymphatic Comment: none - Allergic/Immunologic Allergic/Immunologic: Reports as per HPI Past Medical History Past Medical History: Cancer, Hyperlipidemia, Hypertension, Osteoarthritis (OA) Additional Past Medical History / Comment(s): Hodgkins's Lymphoma. RT Sacroiliac Joint Arthritis. BORDERLINE HIGH CHOLESTEROL. History of Any Multi-Drug Resistant Organisms: None Reported Past Surgical History: Adenoidectomy, Hysterectomy, Tonsillectomy, Tubal Ligation Additional Past Surgical History / Comment(s): CERVICAL Lymph node bx, Eye surgery for cysts. BONE MARROW BIOPSY. Past Anesthesia/Blood Transfusion Reactions: No Reported Reaction Additional Past Anesthesia/Blood Transfusion Reaction / Comment(s): unknown family hx . no hx blood transfusion. Past Psychological History: No Psychological Hx Reported Smoking Status: Former smoker Past Alcohol Use History: Rare Additional Past Alcohol Use History / Comment(s): quit smoking over 54 years ago, smoked very short time as a senior in high school. Past Drug Use History: None Reported - Past Family History Sister(s) Family Medical History: Cancer Additional Family Medical History / Comment(s): 3 sisters hx breast CA Mother Family Medical History: No Reported History Father Family Medical History: No Reported History Medications and Allergies Home Medications Medication Instructions Recorded Confirmed Type amLODIPine [Norvasc] 10 mg PO QAM 06/20/16 06/27/22 History Losartan [Cozaar] 75 mg PO DAILY 07/29/17 06/27/22 History Biotin 5 mg PO DAILY 03/06/18 06/27/22 History Cholecalciferol (Vitamin D3) 2,000 unit PO DAILY 03/06/18 06/27/22 History [Vitamin D3] Tumeric (Unknown) 1 tab PO DAILY 03/06/18 06/27/22 History Aspirin [Adult Low Dose Aspirin EC] 81 mg PO DAILY 05/27/22 06/27/22 History Atorvastatin [Lipitor] 80 mg PO HS 06/27/22 06/27/22 History Cholecalciferol [Vitamin D3 (125 125 mcg PO DAILY 06/27/22 06/27/22 History Mcg = 5000 Iu)] Escitalopram [Lexapro] 10 mg PO DAILY 06/27/22 06/27/22 History Mv,Calcium,Min/Iron/Folic/Vitk 1 each PO DAILY 06/27/22 06/27/22 History [One-A-Day Women's Complete Tab] Allergies Allergy/AdvReac Type Severity Reaction Status Date / Time No Known Allergies Allergy Verified 06/27/22 12:23 Objective - Constitutional General appearance: Present: cooperative - EENT Eyes: Present: EOMI ENT: Present: hearing grossly normal - Neck Neck: Present: normal ROM - Respiratory Respiratory: bilateral: CTA - Cardiovascular Heart sounds: normal: S1, S2 - Integumentary Integumentary: Present: normal turgor - Musculoskeletal Musculoskeletal Comment(s): back pain today making walking difficult - Psychiatric Psychiatric: Present: A&O x's 3, appropriate affect, intact judgment & insight - Additional findings Additional findings: Breast Exam: BRA: 36D Inspection: Well-healed scar left breast from lumpectomy, bilateral grade 2 ptosis; inner quadrant area Palpation: Right breast: Multi positional exam no dominant masses or nodules of concern on last visit Right axilla: No adenopathy of concern on last visit Left breast: multi- positional exam well-healed scar from prior surgery fullness upper inner quadrant area approximately 8 cm x 8 cm consistent with most likely postoperative seroma resolved at this time Left axilla: No adenopathy of concern Assessment and Plan Assessment: Impression: T1 N0 M0 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 Rothman
[2023-06-05 10:51] VITALS: BP 166/77; PULSE 76; RESP 16; TEMP 97.8
--- NOTE | 2023-06-05 11:12 | P.PN ---
Subjective Progress Note Date: 06/05/23 05-08-23 Aspiration of seroma left breast Area of concern was prepped using Betadine An 18-gauge needle on a 20 cc syringe was inserted into the area of concern 100 cc of serous fluid was removed The patient tolerated the procedure with no difficulty There was complete resolution of the seroma The patient will follow-up in the next several weeks after her bilateral mammogram Patient to follow-up sooner any questions or concerns Subjective Progress Note Date: 05/08/23 Hodgkins lymphoms 2015, left breast invasive ductal cancer 2022 [id number](-) Chief Complaint: invasive ductal cancer left breast 2022 Lizette is a 77 year old white female seen in consultation for Dr. Rothman regarding a left breast invasive ductal cancer. She had a bilateral mammogram on 05-21-22 which led to further work up of the left breast. A 1.5 cm lesion was seen at the 9 O clock position for which biopsy on 06-11-22 revealed a grade 3 tripple (-) invasive ductal cancer. This was a routine mammogram. She did not feel anything of concern in her breast. She was not complaining of any nipple discharge or skin changes. She had never had any surgery on her breast. She underwent a left breast lumpectomyu and SNB on 07-29-22. Pathology revelaed a 1.5 cm lesion of invasive ductal cancer, all margins (-). She had 4 nodes removed all (-). She is not complaining of any new lumps masses or nodules of concern in either breast. The patient had a history of Hodgkin's lymphoma in 2017 treated with chemo and radiation. Note medical oncology 10-22-22 reviewed; received TC chemotherapy she completed 4 sessions she is going to start radiation on December 15, 2022 05-08-23 note medical oncology 01-09-23 reviewed note radiation oncology reviewed: 02-20-23 She underwent a left breast lumpectomy and SNB on 07-29-22. Pathology revelaed a 1.5 cm lesion of invasive ductal cancer, all margins (-). She had 4 nodes removed all (-). She is complaining of firmness of her left breast which started about two weeks ago. She is not complaining of any new lumps masses or nodules of concern The patient had a history of Hodgkin's lymphoma in 2017 treated with chemo and radiation. 4-12-24 note 05-12-23 medical oncology reviewed bilateral mammogram scheduled for today The patient states that in the left breast upper outer quadrant area there is some firmness there is no pain she is uncertain as to whether the seroma has r eturned Caffiene: 2 cups/day nicotine: none chocolate: weekly BCP: 3 years hormones: none Family History; 3 sisters: breast cancer brother: brain cancer patient lymphoma told it was cured treated with chemo and radiation Hormonal History: menarche: 10 breast fed: no, age at first : 17 menopause: hysterectomy at 45 no cancer Surgicall history: Hysterectomy lymphoma Medical History: CVA lymphoma HTN osteoarthritis Social History: nicotine: none alcohol: occasional drugs: none - Constitutional Constitutional: Denies chills, Denies fever - EENT Comment: eye surgery ? type of surgery Ears: bilateral: decreased hearing (hearing aids), deny: tinnitus Ears, nose, mouth and throat: Denies headache, Denies sore throat - Breasts Breasts: bilateral: as per HPI - Cardiovascular Cardiovascular: Denies chest pain, Denies shortness of breath - Respiratory Respiratory: Denies cough - Gastrointestinal Gastrointestinal: Denies abdominal pain, Denies diarrhea, Denies nausea, Denies vomiting - Genitourinary (Female) Genitourinary: Denies dysuria, Denies hematuria - Menstruation Menstruation: Reports postmenopausal - Musculoskeletal Comment: sciatic nerve pain - Integumentary Integumentary: Denies pruritus, Denies rash - Neurological Neurological: Denies numbness, Denies weakness - Psychiatric Psychiatric: Denies anxiety, Denies depression - Endocrine Endocrine: Denies fatigue, Denies weight change - Hematologic/Lymphatic Comment: none - Allergic/Immunologic Allergic/Immunologic: Reports as per HPI Past Medical History Past Medical History: Cancer, Hyperlipidemia, Hypertension, Osteoarthritis (OA) Additional Past Medical History / Comment(s): Hodgkins's Lymphoma. RT Sacroiliac Joint Arthritis. BORDERLINE HIGH CHOLESTEROL. History of Any Multi-Drug Resistant Organisms: None Reported Past Surgical History: Adenoidectomy, Hysterectomy, Tonsillectomy, Tubal Ligation Additional Past Surgical History / Comment(s): CERVICAL Lymph node bx, Eye surgery for cysts. BONE MARROW BIOPSY. Past Anesthesia/Blood Transfusion Reactions: No Reported Reaction Additional Past Anesthesia/Blood Transfusion Reaction / Comment(s): unknown family hx . no hx blood transfusion. Past Psychological History: No Psychological Hx Reported Smoking Status: Former smoker Past Alcohol Use History: Rare Additional Past Alcohol Use History / Comment(s): quit smoking over 54 years ago, smoked very short time as a senior in high school. Past Drug Use History: None Reported - Past Family History Sister(s) Family Medical History: Cancer Additional Family Medical History / Comment(s): 3 sisters hx breast CA Mother Family Medical History: No Reported History Father Family Medical History: No Reported History Medications and Allergies Home Medications Medication Instructions Recorded Confirmed Type amLODIPine [Norvasc] 10 mg PO QAM 06/20/16 06/27/22 History Losartan [Cozaar] 75 mg PO DAILY 07/29/17 06/27/22 History Biotin 5 mg PO DAILY 03/06/18 06/27/22 History Cholecalciferol (Vitamin D3) 2,000 unit PO DAILY 03/06/18 06/27/22 History [Vitamin D3] Tumeric (Unknown) 1 tab PO DAILY 03/06/18 06/27/22 History Aspirin [Adult Low Dose Aspirin EC] 81 mg PO DAILY 05/27/22 06/27/22 History Atorvastatin [Lipitor] 80 mg PO HS 06/27/22 06/27/22 History Cholecalciferol [Vitamin D3 (125 125 mcg PO DAILY 06/27/22 06/27/22 History Mcg = 5000 Iu)] Escitalopram [Lexapro] 10 mg PO DAILY 06/27/22 06/27/22 History Mv,Calcium,Min/Iron/Folic/Vitk 1 each PO DAILY 06/27/22 06/27/22 History [One-A-Day Women's Complete Tab] Allergies Allergy/AdvReac Type Severity Reaction Status Date / Time No Known Allergies Allergy Verified 06/27/22 12:23 Objective - Vital Signs Vital signs: Vital Signs Temp 97.8 F 06/05/23 10:34 Pulse 76 06/05/23 10:34 Resp 16 06/05/23 10:34 BP 166/77 06/05/23 10:34 Pulse Ox 97 06/05/23 10:34 FiO2 Intake & Output 06/04/23 06/05/23 06/05/23 18:59 06:59 18:59 Weight 54.431 kg - Constitutional General appearance: Present: cooperative - EENT Eyes: Present: EOMI ENT: Present: hearing grossly normal - Neck Neck: Present: normal ROM - Respiratory Respiratory: bilateral: CTA - Cardiovascular Rhythm: regular Heart sounds: normal: S1, S2 - Integumentary Integumentary: Present: normal turgor - Musculoskeletal Musculoskeletal: Present: gait normal - Psychiatric Psychiatric: Present: A&O x's 3, appropriate affect, intact judgment & insight - Additional findings Additional findings: Breast Exam: BRA: 36D Inspection: Well-healed scar left breast from lumpectomy, bilateral grade 2 ptosis; inner quadrant area Palpation: Right breast: Multi positional exam no dominant masses or nodules of concern Right axilla: No adenopathy of concern Left breast: multi- positional exam well-healed scar from prior surgery fullness upper inner quadrant area approximately 8 cm x 8 cm consistent with most likely postoperative seroma which seems to have recurred Left axilla: No adenopathy of concern Assessment and Plan Assessment: Impression: T1 N0 M0 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 Rothman
== END ==
LOC: WWCWWP 10:23
PROVIDERS: ATTEND Surgery
DX: Z12.31 Encounter for screening mammogram for malignant neoplasm of breast (principal); C50.812 Malignant neoplasm of overlapping sites of left female breast; I10 Essential (primary) hypertension; N60.19 Diffuse cystic mastopathy of unspecified breast; N64.89 Other specified disorders of breast; Z86.73 Personal history of transient ischemic attack (TIA), and cerebral infarction without residual deficits; Z85.72 Personal history of non-Hodgkin lymphomas; Z80.3 Family history of malignant neoplasm of breast; Z92.21 Personal history of antineoplastic chemotherapy; Z92.3 Personal history of irradiation; Z87.891 Personal history of nicotine dependence; Z79.899 Other long term (current) drug therapy; Z17.0 Estrogen receptor positive status [ER+]

== ENCOUNTER → 2023-06-05 | Outpatient (CLI) | payer MEDICARE ==
--- NOTE | 2023-06-05 11:53 | MM ---
Reason for Exam: Hx of breast cancer, conservation therapy. Last mammogram was performed 1 year(s) and 1 month(s) ago. Patient History: Menarche at age 10. First Full-Term at age 17. Left ovary removed at age 46. Right ovary removed at age 46. Hysterectomy at age 46. Postmenopausal. Other cancer, age 71. Breast cancer, left, age 76. Breast cancer, left, age 77. Previous chest radiation therapy at age 77. Previous chemotherapy at age 77. 07/29/2022, Lumpectomy on the Left side. 07/29/2022, Malignant MG pre op needle loc LT on the left side. 06/11/2022, Malignant US biopsy breast VAD LT on the left side. Sister had breast cancer. Sister had breast cancer. Sister had breast cancer. Prior Study Comparison: 05/01/2016 Bilateral Screening Mammogram, [facility]. 06/30/2017 Bilateral Screening Mammogram, [facility]. 08/05/2018 Bilateral Screening Mammogram, [facility]. 08/19/2019 Bilateral Screening Mammogram, [facility]. 05/21/2022 Bilateral MG 3D screening mammo w/cad, [facility]. 05/23/2022 Left MG 3D work up w/cad LT, [facility]. 05/23/2022 Left US breast workup limited LT, [facility]. 06/11/2022 Left MG diagnostic mammo LT wo CAD., [facility]. Tissue Density: The breasts are heterogeneously dense, which may obscure small masses. Findings: Analyzed By CAD. Postoperative changes of left-sided lumpectomy. No recurrent or residual mass. No mass within either breast or suspicious calcifications. Overall Assessment: Benign, BI-RAD 2 Management: Diagnostic Mammogram of both breasts in 1 year. . Results were given to the patient verbally at the time of exam. Patient should continue monthly self-breast exams. A clinical breast exam by your physician is recommended on an annual basis. This exam should not preclude additional follow-up of suspicious palpable abnormalities. Note on Sarahi scores and lifetime risk: 1. A Sarahi score greater than 3% is considered moderate risk. If this is the case, consider specialist referral to assess eligibility for a risk reducing agent. 2. If overall lifetime risk for the development of breast cancer is 20% or higher, the patient may qualify for future screening with alternating mammogram and breast MRI. Electronically signed and approved by: Robert Rubio M.D. Radiologis
== END | disposition home or self-care (01) ==
LOC: RADMAMWWP 11:18
PROVIDERS: ATTEND Surgery
DX: R92.333 Mammographic heterogeneous density, bilateral breasts (principal); Z85.3 Personal history of malignant neoplasm of breast; Z78.0 Asymptomatic menopausal state; Z80.3 Family history of malignant neoplasm of breast
CPT/HCPCS: 77066; G0279; 77062

== ENCOUNTER → 2023-06-17 | Outpatient (CLI) | payer MEDICARE ==
--- NOTE | 2023-06-17 11:53 | BD ---
EXAMINATION TYPE: Axial Bone Density DATE OF EXAM: 06/17/2023 CLINICAL HISTORY: 77 years old Female. ICD-10 CODE: Z78.0 ASYMPTOMATIC MENOPAUSAL STATE Height: 60" Weight: 124.8lbs FRAX RISK QUESTIONS: Alcohol (3 or more units per day): No Family History (Parent hip fracture): No Glucocorticoids (More than 3mos): No (Ex: prednisone, prednisolone, methylprednisolone, dexamethasone, and hydrocortisone). History of Fracture in Adulthood: No Secondary Osteoporosis: 1. Type 1 Diabetes: No 2. Hyperthyroidism: No 3. Menopause before 45: No 4. Malnutrition: No 5. Chronic liver disease: No Rheumatoid Arthritis: No Current Tobacco Use: No RISK FACTORS HISTORY OF: Hip Fracture (Right/Left): No Spine Fracture: No History of Wrist Fracture: No Surgery to Spine/Hip(right/left)/Wrist (right/left): No MEDICATIONS: Thyroid Medications: No Osteoporosis Medications: No EXAM MEASUREMENTS: Bone mineral densitometry was performed using the [employer] System. Bone mineral density as measured about the Lumbar spine is: ----- L1-L4(G/cm2): 1.011 T Score Values are as follows: ----- L1: -1.1 ----- L2: -1.8 ----- L3: -1.3 ----- L4: -1.5 ----- L1-L4: -1.4 Z Score Values are as follows: ----- L1: 1.0 ----- L2: 0.3 ----- L3: 0.8 ----- L4: 0.6 ----- L1-L4: 0.7 Baseline @[facility] Bone mineral density about the R hip (g/cm2): 0.708 Bone mineral density about the L hip (g/cm2): 0.730 T Score values are as follows: -----R Neck: -2.4 -----L Neck: -2.3 -----R Total: -2.4 -----L Total: -2.2 Z Score values are as follows: -----R Neck: 0.0 -----L Neck: 0.0 -----R Total: -0.2 -----L Total: 0.0 Baseline @[facility] FRAX%s: The graph provided illustrates a 18.4% chance for a major osteoporotic fx and a 6.2% chance f or the hips probability for fx in 10 years time. IMPRESSION: Osteopenia (T Score between -2.5 and -1). There is slightly increased risk of fracture and the patient may be considered for treatment. Re-Screen 2-5 years. NOTE: T-SCORE=SD OF THE YOUNG ADULT MEAN.
== END | disposition home or self-care (01) ==
LOC: RADBDWWP 09:54
PROVIDERS: ATTEND Family Medicine
DX: M85.89 Other specified disorders of bone density and structure, multiple sites (principal); Z78.0 Asymptomatic menopausal state
CPT/HCPCS: 77080

== ENCOUNTER → 2023-06-18 | Outpatient (CLI) | payer MEDICARE ==
[2023-06-18 11:44] VITALS: BP 169/82; PULSE 76; RESP 17; TEMP 97.6
--- NOTE | 2023-06-18 11:58 | P.CON ---
Consult Note - . Consult date: 06/18/23 Assessment/Plan:: Subjective Progress Note Date: 05/08/23 Hodgkins lymphoms 2016, left breast invasive ductal cancer 2022 [id number](-) Chief Complaint: invasive ductal cancer left breast 2022 Lizette is a 77 year old white female seen in consultation for Dr. Rothman regarding a left breast invasive ductal cancer. She had a bilateral mammogram on 05-21-22 which led to further work up of the left breast. A 1.5 cm lesion was seen at the 9 O clock position for which biopsy on 06-11-22 revealed a grade 3 tripple (-) invasive ductal cancer. This was a routine mammogram. She did not feel anything of concern in her breast. She was not complaining of any nipple discharge or skin changes. She had never had any surgery on her breast. She underwent a left breast lumpectomy and SNB on 07-29-22. Pathology revealed a 1.5 cm lesion of invasive ductal cancer, all margins (-). She had 4 nodes removed all (-). She is not complaining of any new lumps masses or nodules of concern in either breast. The patient had a history of Hodgkin's lymphoma in 2017 treated with chemo and radiation. Note medical oncology 10-22-22 reviewed; received TC chemotherapy she completed 4 sessions she is going to start radiation on December 15, 2022 05-08-23 note medical oncology 01-09-23 reviewed note radiation oncology reviewed: 02-20-23 She underwent a left breast lumpectomy and SNB on 07-29-22. Pathology revelaed a 1.5 cm lesion of invasive ductal cancer, all margins (-). She had 4 nodes removed all (-). She is complaining of firmness of her left breast which started about two weeks ago. She is not complaining of any new lumps masses or nodules of concern The patient had a history of Hodgkin's lymphoma in 2017 treated with chemo and radiation. 05-08-23 Aspiration of seroma left breast Area of concern was prepped using Betadine An 18-gauge needle on a 20 cc syringe was inserted into the area of concern 100 cc of serous fluid was removed The patient tolerated the procedure with no difficulty There was complete resolution of the seroma The patient will follow-up in the next several weeks after her bilateral mammogram Patient to follow-up sooner any questions or concerns 06-05-23 note 05-12-23 medical oncology reviewed bilateral mammogram scheduled for today The patient states that in the left breast upper outer quadrant area there is some firmness there is no pain she is uncertain as to whether the seroma has returned Following informed consent the area of concern in the left breast was prepped using alcohol. An 18-gauge syringe and a 20 cc needle was used to aspirate 64 cc of straw-colored fluid There was complete resolution of the seroma The patient will have a bilateral mammogram follow-up in 2 weeks 06-18-23 bilateral mammogram 06-05-23 BIRAD 2 The patient returns today to evaluate possible recurrent seroma left breast UOQ , The patient states she has some fullness in the upper outer quadrant of the left breast again since her last visit. Caffiene: 2 cups/day nicotine: none chocolate: weekly BCP: 3 years hormones: none Family History; 3 sisters: breast cancer brother: brain cancer patient lymphoma told it was cured treated with chemo and radiation Hormonal History: menarche: 10 breast fed: no, age at first : 17 menopause: hysterectomy at 45 no cancer Surgicall history: Hysterectomy lymphoma Medical History: CVA lymphoma HTN osteoarthritis Social History: nicotine: none alcohol: occasional drugs: none - Constitutional Constitutional: Denies chills, Denies fever - EENT Comment: eye surgery ? type of surgery Ears: bilateral: decreased hearing (hearing aids), deny: tinnitus Ears, nose, mouth and throat: Denies headache, Denies sore throat - Breasts Breasts: bilateral: as per HPI - Cardiovascular Cardiovascular: Denies chest pain, Denies shortness of breath - Respiratory Respiratory: Denies cough - Gastrointestinal Gastrointestinal: Denies abdominal pain, Denies diarrhea, Denies nausea, Denies vomiting - Genitourinary (Female) Genitourinary: Denies dysuria, Denies hematuria - Menstruation Menstruation: Reports postmenopausal - Musculoskeletal Comment: sciatic nerve pain - Integumentary Integumentary: Denies pruritus, Denies rash - Neurological Neurological: Denies numbness, Denies weakness - Psychiatric Psychiatric: Denies anxiety, Denies depression - Endocrine Endocrine: Denies fatigue, Denies weight change - Hematologic/Lymphatic Comment: none - Allergic/Immunologic Allergic/Immunologic: Reports as per HPI Past Medical History Past Medical History: Cancer, Hyperlipidemia, Hypertension, Osteoarthritis (OA) Additional Past Medical History / Comment(s): Hodgkins's Lymphoma. RT Sacroiliac Joint Arthritis. BORDERLINE HIGH CHOLESTEROL. History of Any Multi-Drug Resistant Organisms: None Reported Past Surgical History: Adenoidectomy, Hysterectomy, Tonsillectomy, Tubal Ligation Additional Past Surgical History / Comment(s): CERVICAL Lymph node bx, Eye surgery for cysts. BONE MARROW BIOPSY. Past Anesthesia/Blood Transfusion Reactions: No Reported Reaction Additional Past Anesthesia/Blood Transfusion Reaction / Comment(s): unknown family hx . no hx blood transfusion. Past Psychological History: No Psychological Hx Reported Smoking Status: Former smoker Past Alcohol Use History: Rare Additional Past Alcohol Use History / Comment(s): quit smoking over 54 years ago, smoked very short time as a senior in high school. Past Drug Use History: None Reported - Past Family History Sister(s) Family Medical History: Cancer Additional Family Medical History / Comment(s): 3 sisters hx breast CA Mother Family Medical History: No Reported History Father Family Medical History: No Reported History Medications and Allergies Home Medications Medication Instructions Recorded Confirmed Type amLODIPine [Norvasc] 10 mg PO QAM 06/20/16 06/27/22 History Losartan [Cozaar] 75 mg PO DAILY 07/29/17 06/27/22 History Biotin 5 mg PO DAILY 03/06/18 06/27/22 History Cholecalciferol (Vitamin D3) 2,000 unit PO DAILY 03/06/18 06/27/22 History [Vitamin D3] Tumeric (Unknown) 1 tab PO DAILY 03/06/18 06/27/22 History Aspirin [Adult Low Dose Aspirin EC] 81 mg PO DAILY 05/27/22 06/27/22 History Atorvastatin [Lipitor] 80 mg PO HS 06/27/22 06/27/22 History Cholecalciferol [Vitamin D3 (125 125 mcg PO DAILY 06/27/22 06/27/22 History Mcg = 5000 Iu)] Escitalopram [Lexapro] 10 mg PO DAILY 06/27/22 06/27/22 History Mv,Calcium,Min/Iron/Folic/Vitk 1 each PO DAILY 06/27/22 06/27/22 History [One-A-Day Women's Complete Tab] Allergies Allergy/AdvReac Type Severity Reaction Status Date / Time No Known Allergies Allergy Verified 06/27/22 12:23 Objective - Vital Signs Vital signs: Vital Signs Temp 97.8 F 06/05/23 10:34 Pulse 76 06/05/23 10:34 Resp 16 06/05/23 10:34 BP 166/77 06/05/23 10:34 Pulse Ox 97 06/05/23 10:34 FiO2 Intake & Output 06/04/23 06/05/23 06/05/23 18:59 06:59 18:59 Weight 54.431 kg - Constitutional General appearance: Present: cooperative - EENT Eyes: Present: EOMI ENT: Present: hearing grossly normal - Neck Neck: Present: normal ROM - Respiratory Respiratory: bilateral: CTA - Cardiovascular Rhythm: regular Heart sounds: normal: S1, S2 - Integumentary Integumentary: Present: normal turgor - Musculoskeletal Musculoskeletal: Present: gait normal - Psychiatric Psychiatric: Present: A&O x's 3, appropriate affect, intact judgment & insight - Additional findings Additional findings: Breast Exam: BRA: 36D Inspection: Well-healed scar left breast from lumpectomy, bilateral grade 2 ptosis; inner quadrant area Palpation: Right breast: Multi positional exam no dominant masses or nodules of concern Right axilla: No adenopathy of concern Left breast: multi- positional exam well-healed scar from prior surgery fullness upper inner quadrant area approximately 5 by 2 cm consistent with most likely postoperative seroma which seems to have recurred Left axilla: No adenopathy of concern Assessment and Plan Assessment: Impression: T1 N0 M0 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 An 18-gauge needle on a cc syringe was used to aspirate 45 cc of serosanguinous fluid. There appeared to be complete resolution of the seroma. Follow-up in 2 weeks CC: Dr. Rothman Additional CC's: Germán Rothman
== END ==
LOC: WWCWWP 11:29
PROVIDERS: ATTEND Surgery
DX: R92.8 Other abnormal and inconclusive findings on diagnostic imaging of breast (principal); C81.90 Hodgkin lymphoma, unspecified, unspecified site; C50.912 Malignant neoplasm of unspecified site of left female breast; L76.33 Postprocedural seroma of skin and subcutaneous tissue following a dermatologic procedure; N64.89 Other specified disorders of breast; N60.11 Diffuse cystic mastopathy of right breast; I10 Essential (primary) hypertension; N60.12 Diffuse cystic mastopathy of left breast; Z80.3 Family history of malignant neoplasm of breast; Z17.1 Estrogen receptor negative status [ER-]; Z86.73 Personal history of transient ischemic attack (TIA), and cerebral infarction without residual deficits; Z92.3 Personal history of irradiation; Z87.891 Personal history of nicotine dependence; Z92.21 Personal history of antineoplastic chemotherapy; Z90.710 Acquired absence of both cervix and uterus; Z79.899 Other long term (current) drug therapy

== ENCOUNTER → 2023-07-09 | Outpatient (CLI) | payer MEDICARE ==
--- NOTE | 2023-07-09 12:58 | P.PN ---
Subjective Progress Note Date: 07/09/23 07-09-23 Assessment/Plan:: Subjective Progress Note Date: 05/08/23 Hodgkins lymphoms 2016, left breast invasive ductal cancer 2022 [id number](-) Chief Complaint: invasive ductal cancer left breast 2022 Lizette is a 77 year old white female seen in consultation for Dr. Rothman regarding a left breast invasive ductal cancer. She had a bilateral mammogram on 05-21-22 which led to further work up of the left breast. A 1.5 cm lesion was seen at the 9 O clock position for which biopsy on 06-11-22 revealed a grade 3 tripple (-) invasive ductal cancer. This was a routine mammogram. She did not feel anything of concern in her breast. She was not complaining of any nipple discharge or skin changes. She had never had any surgery on her breast. She underwent a left breast lumpectomy and SNB on 07-29-22. Pathology revealed a 1.5 cm lesion of invasive ductal cancer, all margins (-). She had 4 nodes removed all (-). She is not complaining of any new lumps masses or nodules of concern in either breast. The patient had a history of Hodgkin's lymphoma in 2017 treated with chemo and radiation. Note medical oncology 10-22-22 reviewed; received TC chemotherapy she completed 4 sessions she is going to start radiation on December 15, 2022 05-08-23 note medical oncology 01-09-23 reviewed note radiation oncology reviewed: 02-20-23 She underwent a left breast lumpectomy and SNB on 07-29-22. Pathology revelaed a 1.5 cm lesion of invasive ductal cancer, all margins (-). She had 4 nodes removed all (-). She is complaining of firmness of her left breast which started about two weeks ago. She is not complaining of any new lumps masses or nodules of concern The patient had a history of Hodgkin's lymphoma in 2017 treated with chemo and radiation. 05-08-23 Aspiration of seroma left breast Area of concern was prepped using Betadine An 18-gauge needle on a 20 cc syringe was inserted into the area of concern 100 cc of serous fluid was removed The patient tolerated the procedure with no difficulty There was complete resolution of the seroma The patient will follow-up in the next several weeks after her bilateral mammogram Patient to follow-up sooner any questions or concerns 06-05-23 note 05-12-23 medical oncology reviewed bilateral mammogram scheduled for today The patient states that in the left breast upper outer quadrant area there is some firmness there is no pain she is uncertain as to whether the seroma has returned Following informed consent the area of concern in the left breast was prepped using alcohol. An 18-gauge syringe and a 20 cc needle was used to aspirate 64 cc of straw-colored fluid There was complete resolution of the seroma The patient will have a bilateral mammogram follow-up in 2 weeks 06-18-23 bilateral mammogram 06-05-23 BIRAD 2 The patient returns today to evaluate possible recurrent seroma left breast UOQ , The patient states she has some fullness in the upper outer quadrant of the left breast again since her last visit. 07-09-23 The patient had aspiration of the seroma done on for 45 cc of fluid. She comes in today for reevaluation of the site. She has some minimal swelling at the site of the upper inner quadrant in the breast. Caffiene: 2 cups/day nicotine: none chocolate: weekly BCP: 3 years hormones: none Family History; 3 sisters: breast cancer brotherSwelling at the site.: brain cancer patient lymphoma told it was cured treated with chemo and radiation Hormonal History: menarche: 10 breast fed: no, age at first : 17 menopause: hysterectomy at 45 no cancer Surgicall history: Hysterectomy lymphoma Medical History: CVA lymphoma HTN osteoarthritis Social History: nicotine: none alcohol: occasional drugs: none - Constitutional Constitutional: Denies chills, Denies fever - EENT Comment: eye surgery ? type of surgery Ears: bilateral: decreased hearing (hearing aids), deny: tinnitus Ears, nose, mouth and throat: Denies headache, Denies sore throat - Breasts Breasts: bilateral: as per HPI - Cardiovascular Cardiovascular: Denies chest pain, Denies shortness of breath - Respiratory Respiratory: Denies cough - Gastrointestinal Gastrointestinal: Denies abdominal pain, Denies diarrhea, Denies nausea, Denies vomiting - Genitourinary (Female) Genitourinary: Denies dysuria, Denies hematuria - Menstruation Menstruation: Reports postmenopausal - Musculoskeletal Comment: sciatic nerve pain - Integumentary Integumentary: Denies pruritus, Denies rash - Neurological Neurological: Denies numbness, Denies weakness - Psychiatric Psychiatric: Denies anxiety, Denies depression - Endocrine Endocrine: Denies fatigue, Denies weight change - Hematologic/Lymphatic Comment: none - Allergic/Immunologic Allergic/Immunologic: Reports as per HPI Past Medical History Past Medical History: Cancer, Hyperlipidemia, Hypertension, Osteoarthritis (OA) Additional Past Medical History / Comment(s): Hodgkins's Lymphoma. RT Sacroiliac Joint Arthritis. BORDERLINE HIGH CHOLESTEROL. History of Any Multi-Drug Resistant Organisms: None Reported Past Surgical History: Adenoidectomy, Hysterectomy, Tonsillectomy, Tubal Ligation Additional Past Surgical History / Comment(s): CERVICAL Lymph node bx, Eye surgery for cysts. BONE MARROW BIOPSY. Past Anesthesia/Blood Transfusion Reactions: No Reported Reaction Additional Past Anesthesia/Blood Transfusion Reaction / Comment(s): unknown family hx . no hx blood transfusion. Past Psychological History: No Psychological Hx Reported Smoking Status: Former smoker Past Alcohol Use History: Rare Additional Past Alcohol Use History / Comment(s): quit smoking over 54 years ago, smoked very short time as a senior in high school. Past Drug Use History: None Reported - Past Family History Sister(s) Family Medical History: Cancer Additional Family Medical History / Comment(s): 3 sisters hx breast CA Mother Family Medical History: No Reported History Father Family Medical History: No Reported History Medications and Allergies Home Medications Medication Instructions Recorded Confirmed Type amLODIPine [Norvasc] 10 mg PO QAM 06/20/16 06/27/22 History Losartan [Cozaar] 75 mg PO DAILY 07/29/17 06/27/22 History Biotin 5 mg PO DAILY 03/06/18 06/27/22 History Cholecalciferol (Vitamin D3) 2,000 unit PO DAILY 03/06/18 06/27/22 History [Vitamin D3] Tumeric (Unknown) 1 tab PO DAILY 03/06/18 06/27/22 History Aspirin [Adult Low Dose Aspirin EC] 81 mg PO DAILY 05/27/22 06/27/22 History Atorvastatin [Lipitor] 80 mg PO HS 06/27/22 06/27/22 History Cholecalciferol [Vitamin D3 (125 125 mcg PO DAILY 06/27/22 06/27/22 History Mcg = 5000 Iu)] Escitalopram [Lexapro] 10 mg PO DAILY 06/27/22 06/27/22 History Mv,Calcium,Min/Iron/Folic/Vitk 1 each PO DAILY 06/27/22 06/27/22 History [One-A-Day Women's Complete Tab] Allergies Allergy/AdvReac Type Severity Reaction Status Date / Time No Known Allergies Allergy Verified 06/27/22 12:23 Objective - Vital Signs Vital signs: Vital Signs Temp 98.1 F 07/09/23 12:40 Pulse 71 07/09/23 12:40 Resp 15 07/09/23 12:40 BP 162/88 07/09/23 12:40 Pulse Ox 96 07/09/23 12:40 FiO2 Intake & Output 07/08/23 07/09/23 07/09/23 18:59 06:59 18:59 Weight 54.431 kg - Constitutional General appearance: Present: cooperative - EENT Eyes: Present: EOMI ENT: Present: hearing grossly normal - Neck Neck: Present: normal ROM - Respiratory Respiratory: bilateral: CTA - Cardiovascular Heart sounds: normal: S1, S2 - Integumentary Integumentary: Present: normal turgor - Psychiatric Psychiatric: Present: A&O x's 3, appropriate affect, intact judgment & insight - Additional findings Additional findings: Breast Exam: BRA: 36D Breast limited to the left breast Evaluation of the upper inner quadrant area reveals a small seroma. The patient has no other lumps masses or nodules of concern Well-healed scar from prior surgery Assessment and Plan Assessment: Impression: T1 N0 M0 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 An 18-gauge needle on a cc syringe was used to aspirate 7 cc of serosanguinous fluid. There appeared to be complete resolution of the seroma. Follow-up in 4 weeks CC: Dr. Rothman
[2023-07-09 13:09] VITALS: BP 162/88; PULSE 71; RESP 15; TEMP 98.1
== END ==
LOC: WWCWWP 11:58
PROVIDERS: ATTEND Surgery
DX: C81.90 Hodgkin lymphoma, unspecified, unspecified site (principal); N60.19 Diffuse cystic mastopathy of unspecified breast; N64.89 Other specified disorders of breast; Z80.3 Family history of malignant neoplasm of breast; Z85.72 Personal history of non-Hodgkin lymphomas; Z86.73 Personal history of transient ischemic attack (TIA), and cerebral infarction without residual deficits; Z87.891 Personal history of nicotine dependence; Z92.3 Personal history of irradiation

== ENCOUNTER → 2023-08-10 | Outpatient (CLI) | payer MEDICARE ==
[2023-08-10 11:26] VITALS: BP 132/85; PULSE 89; RESP 17; TEMP 97.9
--- NOTE | 2023-08-10 11:32 | P.PN ---
Subjective Progress Note Date: 08/10/23 Lizette is a 78 year old white female seen in consultation for Dr. Rothman regarding a left breast invasive ductal cancer. She had a bilateral mammogram on 05-21-22 which led to further work up of the left breast. A 1.5 cm lesion was seen at the 9 O clock position for which biopsy on 06-11-22 revealed a grade 3 tripple (-) invasive ductal cancer. This was a routine mammogram. She did not feel anything of concern in her breast. She was not complaining of any nipple discharge or skin changes. She had never had any surgery on her breast. She underwent a left breast lumpectomy and SNB on 07-29-22. Pathology revealed a 1.5 cm lesion of invasive ductal cancer, all margins (-). She had 4 nodes removed all (-). She is not complaining of any new lumps masses or nodules of concern in either breast. The patient had a history of Hodgkin's lymphoma in 2017 treated with chemo and radiation. Note medical oncology 10-22-22 reviewed; received TC chemotherapy she completed 4 sessions she is going to start radiation on December 15, 2022 Seroma of the left breast was performed on 05-08-2023 400 cc of serous fluid Repeat aspiration on 06-05-2023 revealed 64 cc of serous fluid 06-18-23 45 cc of fluid aspirated The patient underwent a bilateral mammogram on 06-18-2023 BIRAD 2 Most recently a seroma was aspirated on 07-09-2023 7 cc of fluid aspirated Caffiene: 2 cups/day nicotine: none chocolate: weekly BCP: 3 years hormones: none Family History; 3 sisters: breast cancer brotherSwelling at the site.: brain cancer patient lymphoma told it was cured treated with chemo and radiation Hormonal History: menarche: 10 breast fed: no, age at first : 17 menopause: hysterectomy at 45 no cancer Surgicall history: Hysterectomy lymphoma Medical History: CVA lymphoma HTN osteoarthritis Social History: nicotine: none alcohol: occasional drugs: none - Constitutional Constitutional: Denies chills, Denies fever - EENT Comment: eye surgery ? type of surgery Ears: bilateral: decreased hearing (hearing aids), deny: tinnitus Ears, nose, mouth and throat: Denies headache, Denies sore throat - Breasts Breasts: bilateral: as per HPI - Cardiovascular Cardiovascular: Denies chest pain, Denies shortness of breath - Respiratory Respiratory: Denies cough - Gastrointestinal Gastrointestinal: Denies abdominal pain, Denies diarrhea, Denies nausea, Denies vomiting - Genitourinary (Female) Genitourinary: Denies dysuria, Denies hematuria - Menstruation Menstruation: Reports postmenopausal - Musculoskeletal Comment: sciatic nerve pain - Integumentary Integumentary: Denies pruritus, Denies rash - Neurological Neurological: Denies numbness, Denies weakness - Psychiatric Psychiatric: Denies anxiety, Denies depression - Endocrine Endocrine: Denies fatigue, Denies weight change - Hematologic/Lymphatic Comment: none - Allergic/Immunologic Allergic/Immunologic: Reports as per HPI Past Medical History Past Medical History: Cancer, Hyperlipidemia, Hypertension, Osteoarthritis (OA) Additional Past Medical History / Comment(s): Hodgkins's Lymphoma. RT Sacroiliac Joint Arthritis. BORDERLINE HIGH CHOLESTEROL. History of Any Multi-Drug Resistant Organisms: None Reported Past Surgical History: Adenoidectomy, Hysterectomy, Tonsillectomy, Tubal Ligation Additional Past Surgical History / Comment(s): CERVICAL Lymph node bx, Eye surgery for cysts. BONE MARROW BIOPSY. Past Anesthesia/Blood Transfusion Reactions: No Reported Reaction Additional Past Anesthesia/Blood Transfusion Reaction / Comment(s): unknown family hx . no hx blood transfusion. Past Psychological History: No Psychological Hx Reported Smoking Status: Former smoker Past Alcohol Use History: Rare Additional Past Alcohol Use History / Comment(s): quit smoking over 54 years ago, smoked very short time as a senior in high school. Past Drug Use History: None Reported - Past Family History Sister(s) Family Medical History: Cancer Additional Family Medical History / Comment(s): 3 sisters hx breast CA Mother Family Medical History: No Reported History Father Family Medical History: No Reported History Medications and Allergies Home Medications Medication Instructions Recorded Confirmed Type amLODIPine [Norvasc] 10 mg PO QAM 06/20/16 06/27/22 History Losartan [Cozaar] 75 mg PO DAILY 07/29/17 06/27/22 History Biotin 5 mg PO DAILY 03/06/18 06/27/22 History Cholecalciferol (Vitamin D3) 2,000 unit PO DAILY 03/06/18 06/27/22 History [Vitamin D3] Tumeric (Unknown) 1 tab PO DAILY 03/06/18 06/27/22 History Aspirin [Adult Low Dose Aspirin EC] 81 mg PO DAILY 05/27/22 06/27/22 History Atorvastatin [Lipitor] 80 mg PO HS 06/27/22 06/27/22 History Cholecalciferol [Vitamin D3 (125 125 mcg PO DAILY 06/27/22 06/27/22 History Mcg = 5000 Iu)] Escitalopram [Lexapro] 10 mg PO DAILY 06/27/22 06/27/22 History Mv,Calcium,Min/Iron/Folic/Vitk 1 each PO DAILY 06/27/22 06/27/22 History [One-A-Day Women's Complete Tab] Allergies Allergy/AdvReac Type Severity Reaction Status Date / Time No Known Allergies Allergy Verified 06/27/22 12:23 Objective - Constitutional General appearance: Present: cooperative - EENT Eyes: Present: EOMI ENT: Present: hearing grossly normal - Neck Neck: Present: normal ROM - Respiratory Respiratory: bilateral: CTA - Cardiovascular Heart sounds: normal: S1, S2 - Integumentary Integumentary: Present: normal turgor - Musculoskeletal Musculoskeletal: Present: gait normal - Psychiatric Psychiatric: Present: A&O x's 3, appropriate affect, intact judgment & insight - Additional findings Additional findings: Breast Exam: Bra: 36D Inspection: Postoperative changes left breast Right breast grade 2/3 ptosis, left breast grade 2/3 ptosis Palpation: Right breast: Multi positional exam no dominant masses or nodules of concern Right axilla: No adenopathy of concern Left breast: Multi positional exam postsurgical and radiation changes, firmness in the area of the lumpectomy most likely consistent with a seroma Left axilla: No adenopathy of concern Assessment and Plan Assessment: Impression: T1 N0 M0 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 An 18-gauge needle on a cc syringe was used to aspirate 70cc of serosanguinous fluid. There appeared to be complete resolution of the seroma. Follow-up in 4 weeks CC: Dr. Rothman
== END ==
LOC: WWCWWP 11:15
PROVIDERS: ATTEND Surgery
DX: N60.19 Diffuse cystic mastopathy of unspecified breast (principal); I10 Essential (primary) hypertension; Z85.72 Personal history of non-Hodgkin lymphomas; Z86.73 Personal history of transient ischemic attack (TIA), and cerebral infarction without residual deficits; Z92.21 Personal history of antineoplastic chemotherapy; Z92.3 Personal history of irradiation; Z80.3 Family history of malignant neoplasm of breast; Z87.891 Personal history of nicotine dependence; Z79.899 Other long term (current) drug therapy

== ENCOUNTER → 2023-09-10 | Outpatient (CLI) | payer MEDICARE ==
[2023-09-10 09:07] VITALS: BP 158/76; PULSE 70; RESP 16; TEMP 97.9
--- NOTE | 2023-09-10 09:47 | P.PN ---
Subjective Progress Note Date: 09/10/23 09-10-23 Lizette is a 78 year old white female seen in consultation for Dr. Rothman regarding a left breast invasive ductal cancer. She had a bilateral mammogram on 05-21-22 which led to further work up of the left breast. A 1.5 cm lesion was seen at the 9 O clock position for which biopsy on 06-11-22 revealed a grade 3 tripple (-) invasive ductal cancer. This was a routine mammogram. She did not feel anything of concern in her breast. She was not complaining of any nipple discharge or skin changes. She had never had any surgery on her breast. She underwent a left breast lumpectomy and SNB on 07-29-22. Pathology revealed a 1.5 cm lesion of invasive ductal cancer, all margins (-). She had 4 nodes removed all (-). She is not complaining of any new lumps masses or nodules of concern in either breast. The patient had a history of Hodgkin's lymphoma in 2017 treated with chemo and radiation. Note medical oncology 10-22-22 reviewed; received TC chemotherapy she completed 4 sessions completed radiation December 2022 Seroma of the left breast was performed on 05-08-2023 400 cc of serous fluid Repeat aspiration on 06-05-2023 revealed 64 cc of serous fluid 06-18-23 45 cc of fluid aspirated The patient underwent a bilateral mammogram on 06-18-2023 BIRAD 2 seroma was aspirated on 07-09-2023 7 cc of fluid aspirated 08-10-23 70 CC seroma aspirated Caffiene: 2 cups/day nicotine: none chocolate: weekly BCP: 3 years hormones: none Family History; 3 sisters: breast cancer brotherSwelling at the site.: brain cancer patient lymphoma told it was cured treated with chemo and radiation Hormonal History: menarche: 10 breast fed: no, age at first : 17 menopause: hysterectomy at 45 no cancer Surgicall history: Hysterectomy lymphoma Medical History: CVA lymphoma HTN osteoarthritis Social History: nicotine: none alcohol: occasional drugs: none - Constitutional Constitutional: Denies chills, Denies fever - EENT Comment: eye surgery ? type of surgery Ears: bilateral: decreased hearing (hearing aids), deny: tinnitus Ears, nose, mouth and throat: Denies headache, Denies sore throat - Breasts Breasts: bilateral: as per HPI - Cardiovascular Cardiovascular: Denies chest pain, Denies shortness of breath - Respiratory Respiratory: Denies cough - Gastrointestinal Gastrointestinal: Denies abdominal pain, Denies diarrhea, Denies nausea, Denies vomiting - Genitourinary (Female) Genitourinary: Denies dysuria, Denies hematuria - Menstruation Menstruation: Reports postmenopausal - Musculoskeletal Comment: sciatic nerve pain - Integumentary Integumentary: Denies pruritus, Denies rash - Neurological Neurological: Denies numbness, Denies weakness - Psychiatric Psychiatric: Denies anxiety, Denies depression - Endocrine Endocrine: Denies fatigue, Denies weight change - Hematologic/Lymphatic Comment: none - Allergic/Immunologic Allergic/Immunologic: Reports as per HPI Past Medical History Past Medical History: Cancer, Hyperlipidemia, Hypertension, Osteoarthritis (OA) Additional Past Medical History / Comment(s): Hodgkins's Lymphoma. RT Sacroiliac Joint Arthritis. BORDERLINE HIGH CHOLESTEROL. History of Any Multi-Drug Resistant Organisms: None Reported Past Surgical History: Adenoidectomy, Hysterectomy, Tonsillectomy, Tubal Ligation Additional Past Surgical History / Comment(s): CERVICAL Lymph node bx, Eye surgery for cysts. BONE MARROW BIOPSY. Past Anesthesia/Blood Transfusion Reactions: No Reported Reaction Additional Past Anesthesia/Blood Transfusion Reaction / Comment(s): unknown family hx . no hx blood transfusion. Past Psychological History: No Psychological Hx Reported Smoking Status: Former smoker Past Alcohol Use History: Rare Additional Past Alcohol Use History / Comment(s): quit smoking over 54 years ago, smoked very short time as a senior in high school. Past Drug Use History: None Reported - Past Family History Sister(s) Family Medical History: Cancer Additional Family Medical History / Comment(s): 3 sisters hx breast CA Mother Family Medical History: No Reported History Father Family Medical History: No Reported History Medications and Allergies Home Medications Medication Instructions Recorded Confirmed Type amLODIPine [Norvasc] 10 mg PO QAM 06/20/16 06/27/22 History Losartan [Cozaar] 75 mg PO DAILY 07/29/17 06/27/22 History Biotin 5 mg PO DAILY 03/06/18 06/27/22 History Cholecalciferol (Vitamin D3) 2,000 unit PO DAILY 03/06/18 06/27/22 History [Vitamin D3] Tumeric (Unknown) 1 tab PO DAILY 03/06/18 06/27/22 History Aspirin [Adult Low Dose Aspirin EC] 81 mg PO DAILY 05/27/22 06/27/22 History Atorvastatin [Lipitor] 80 mg PO HS 06/27/22 06/27/22 History Cholecalciferol [Vitamin D3 (125 125 mcg PO DAILY 06/27/22 06/27/22 History Mcg = 5000 Iu)] Escitalopram [Lexapro] 10 mg PO DAILY 06/27/22 06/27/22 History Mv,Calcium,Min/Iron/Folic/Vitk 1 each PO DAILY 06/27/22 06/27/22 History [One-A-Day Women's Complete Tab] Allergies Allergy/AdvReac Type Severity Reaction Status Date / Time No Known Allergies Allergy Verified 06/27/22 12:23 Objective - Vital Signs Vital signs: Vital Signs Temp 97.9 F 09/10/23 09:04 Pulse 70 09/10/23 09:04 Resp 16 09/10/23 09:04 BP 158/76 09/10/23 09:04 Pulse Ox 94 L 09/10/23 09:04 FiO2 Intake & Output 09/09/23 09/10/23 09/10/23 18:59 06:59 18:59 Weight 56.245 kg - Constitutional General appearance: Present: cooperative - EENT Eyes: Present: EOMI ENT: Present: hearing grossly normal - Neck Neck: Present: normal ROM - Respiratory Respiratory: bilateral: CTA - Cardiovascular Heart sounds: normal: S1, S2 - Integumentary Integumentary: Present: normal turgor - Musculoskeletal Musculoskeletal: Present: gait normal - Psychiatric Psychiatric: Present: A&O x's 3, appropriate affect, intact judgment & insight - Additional findings Additional findings: Breast Exam: Bra: 36D Inspection: Postoperative changes left breast Right breast grade 2/3 ptosis, left breast grade 2/3 ptosis Palpation: Right breast: Multi positional exam no dominant masses or nodules of concern Right axilla: No adenopathy of concern Left breast: Multi positional exam postsurgical and radiation changes, firmness in the area of the lumpectomy most likely consistent with a seroma Left axilla: No adenopathy of concern Assessment and Plan Assessment: Impression: T1 N0 M0 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 An 18-gauge needle on a cc syringe was used to aspirate 43 cc of serosanguinous fluid. There appeared to be complete resolution of the seroma. Follow-up in 4 weeks CC: Dr. Rothman
== END ==
LOC: WWCWWP 08:32
PROVIDERS: ATTEND Surgery
DX: N60.11 Diffuse cystic mastopathy of right breast (principal); N60.12 Diffuse cystic mastopathy of left breast; I10 Essential (primary) hypertension; Z85.72 Personal history of non-Hodgkin lymphomas; Z87.891 Personal history of nicotine dependence; Z92.3 Personal history of irradiation; Z92.21 Personal history of antineoplastic chemotherapy; Z86.73 Personal history of transient ischemic attack (TIA), and cerebral infarction without residual deficits; Z80.3 Family history of malignant neoplasm of breast; Z85.3 Personal history of malignant neoplasm of breast; Z79.899 Other long term (current) drug therapy

== ENCOUNTER → 2023-10-30 | Outpatient (CLI) | payer MEDICARE ==
[2023-10-30 10:22] VITALS: RESP 15; TEMP 99.6
--- NOTE | 2023-10-30 10:39 | P.PN ---
Subjective Progress Note Date: 10/30/23 Principal diagnosis: left breast IDC 2022 [id number] 10-30-23 Lizette is a 78 year old white female seen in consultation for Dr. Rothman regarding a left breast invasive ductal cancer. She had a bilateral mammogram on 05-21-22 which led to further work up of the left breast. A 1.5 cm lesion was seen at the 9 O clock position for which biopsy on 06-11-22 revealed a grade 3 tripple (-) invasive ductal cancer. This was a routine mammogram. She did not feel anything of concern in her breast. She was not complaining of any nipple discharge or skin changes. She had never had any surgery on her breast. She underwent a left breast lumpectomy and SNB on 07-29-22. Pathology revealed a 1.5 cm lesion of invasive ductal cancer, all margins (-). She had 4 nodes removed all (-). She is not complaining of any new lumps masses or nodules of concern in either breast. The patient had a history of Hodgkin's lymphoma in 2016 treated with chemo and radiation. Note medical oncology 09-08-23 reviewed; received TC chemotherapy she completed 4 sessions completed radiation December 2022 Aspiration Seroma of the left breast was performed on 05-08-2023 400 cc of serous fluid Repeat aspiration on 06-05-2023 revealed 64 cc of serous fluid 06-18-23 45 cc of fluid aspirated The patient underwent a bilateral mammogram on 06-18-2023 BIRAD 2 seroma was aspirated on 07-09-2023 7 cc of fluid aspirated 08-10-23 70 CC seroma aspirated Caffiene: 2 cups/day nicotine: none chocolate: weekly BCP: 3 years hormones: none Family History; 3 sisters: breast cancer brother : brain cancer patient lymphoma told it was cured treated with chemo and radiation Hormonal History: menarche: 10 breast fed: no, age at first : 17 menopause: hysterectomy at 45 no cancer Surgicall history: Hysterectomy lymphoma Medical History: CVA lymphoma HTN osteoarthritis Social History: nicotine: none alcohol: occasional drugs: none - Constitutional Constitutional: Denies chills, Denies fever - EENT Comment: eye surgery ? type of surgery Ears: bilateral: decreased hearing (hearing aids), deny: tinnitus Ears, nose, mouth and throat: Denies headache, Denies sore throat - Breasts Breasts: bilateral: as per HPI - Cardiovascular Cardiovascular: Denies chest pain, Denies shortness of breath - Respiratory Respiratory: Denies cough - Gastrointestinal Gastrointestinal: Denies abdominal pain, Denies diarrhea, Denies nausea, Denies vomiting - Genitourinary (Female) Genitourinary: Denies dysuria, Denies hematuria - Menstruation Menstruation: Reports postmenopausal - Musculoskeletal Comment: sciatic nerve pain - Integumentary Integumentary: Denies pruritus, Denies rash - Neurological Neurological: Denies numbness, Denies weakness - Psychiatric Psychiatric: Denies anxiety, Denies depression - Endocrine Endocrine: Denies fatigue, Denies weight change - Hematologic/Lymphatic Comment: none - Allergic/Immunologic Allergic/Immunologic: Reports as per HPI Past Medical History Past Medical History: Cancer, Hyperlipidemia, Hypertension, Osteoarthritis (OA) Additional Past Medical History / Comment(s): Hodgkins's Lymphoma. RT Sacroiliac Joint Arthritis. BORDERLINE HIGH CHOLESTEROL. History of Any Multi-Drug Resistant Organisms: None Reported Past Surgical History: Adenoidectomy, Hysterectomy, Tonsillectomy, Tubal Ligation Additional Past Surgical History / Comment(s): CERVICAL Lymph node bx, Eye surgery for cysts. BONE MARROW BIOPSY. Past Anesthesia/Blood Transfusion Reactions: No Reported Reaction Additional Past Anesthesia/Blood Transfusion Reaction / Comment(s): unknown family hx . no hx blood transfusion. Past Psychological History: No Psychological Hx Reported Smoking Status: Former smoker Past Alcohol Use History: Rare Additional Past Alcohol Use History / Comment(s): quit smoking over 54 years ago, smoked very short time as a senior in high school. Past Drug Use History: None Reported - Past Family History Sister(s) Family Medical History: Cancer Additional Family Medical History / Comment(s): 3 sisters hx breast CA Mother Family Medical History: No Reported History Father Family Medical History: No Reported History Medications and Allergies Home Medications Medication Instructions Recorded Confirmed Type amLODIPine [Norvasc] 10 mg PO QAM 06/20/16 06/27/22 History Losartan [Cozaar] 75 mg PO DAILY 07/29/17 06/27/22 History Biotin 5 mg PO DAILY 03/06/18 06/27/22 History Cholecalciferol (Vitamin D3) 2,000 unit PO DAILY 03/06/18 06/27/22 History [Vitamin D3] Tumeric (Unknown) 1 tab PO DAILY 03/06/18 06/27/22 History Aspirin [Adult Low Dose Aspirin EC] 81 mg PO DAILY 05/27/22 06/27/22 History Atorvastatin [Lipitor] 80 mg PO HS 06/27/22 06/27/22 History Cholecalciferol [Vitamin D3 (125 125 mcg PO DAILY 06/27/22 06/27/22 History Mcg = 5000 Iu)] Escitalopram [Lexapro] 10 mg PO DAILY 06/27/22 06/27/22 History Mv,Calcium,Min/Iron/Folic/Vitk 1 each PO DAILY 06/27/22 06/27/22 History [One-A-Day Women's Complete Tab] Allergies Allergy/AdvReac Type Severity Reaction Status Date / Time No Known Allergies Allergy Verified 06/27/22 12:23 Objective - Vital Signs Vital signs: Vital Signs Temp 99.6 F 10/30/23 10:19 Pulse Resp 15 10/30/23 10:19 BP Pulse Ox 96 10/30/23 10:19 FiO2 Intake & Output 10/29/23 10/30/23 10/30/23 18:59 06:59 18:59 Weight 56.245 kg - Constitutional General appearance: Present: cooperative - EENT Eyes: Present: EOMI ENT: Present: hearing grossly normal - Neck Neck: Present: normal ROM - Respiratory Respiratory: bilateral: CTA - Cardiovascular Heart sounds: normal: S1, S2 - Gastrointestinal General gastrointestinal: Present: soft - Integumentary Integumentary: Present: normal turgor - Musculoskeletal Musculoskeletal: Present: gait normal - Psychiatric Psychiatric: Present: A&O x's 3, appropriate affect, intact judgment & insight - Additional findings Additional findings: Breast Exam: Bra: 36D Inspection: Postoperative changes left breast Right breast grade 2/3 ptosis, left breast grade 2/3 ptosis Palpation: Right breast: Multi positional exam no dominant masses or nodules of concern Right axilla: No adenopathy of concern Left breast: Multi positional exam postsurgical and radiation changes, firmness in the area of the lumpectomy most likely consistent with a seroma Left axilla: No adenopathy of concern Assessment and Plan Assessment: Impression: T1 N0 M0 triple negative G3 left breast invasive ductal carcinoma 9:00; 2023 Prior history of lymphoma Family history of cancer Fibrocystic breast changes Hypertension Prior history of CVA Patient has completed chemotherapy completed radiation therapy Probable seroma left breast Plan: Aspiration seroma after informed consent follow medical oncology follow with radiation oncology follow up in 2 months Following informed consent the area of concern in the left breast was prepped using alcohol. An 18-gauge needle on a cc syringe was used to aspirate 35 cc of serosanguinous fluid. There appeared to be complete resolution of the seroma. Follow-up in 8 weeks CC: Dr. Rothman
== END ==
LOC: WWCWWP 09:47
PROVIDERS: ATTEND Surgery
DX: R92.8 Other abnormal and inconclusive findings on diagnostic imaging of breast (principal); N60.11 Diffuse cystic mastopathy of right breast; N60.12 Diffuse cystic mastopathy of left breast; I10 Essential (primary) hypertension; L76.33 Postprocedural seroma of skin and subcutaneous tissue following a dermatologic procedure; Z92.21 Personal history of antineoplastic chemotherapy; Z92.3 Personal history of irradiation; Z85.71 Personal history of Hodgkin lymphoma; Z80.3 Family history of malignant neoplasm of breast; Z87.891 Personal history of nicotine dependence; Z86.73 Personal history of transient ischemic attack (TIA), and cerebral infarction without residual deficits; Z85.3 Personal history of malignant neoplasm of breast; Z79.899 Other long term (current) drug therapy

== ENCOUNTER → 2024-01-01 | Outpatient (CLI) | payer MEDICARE ==
[2024-01-01 11:45] VITALS: BP 92/65; PULSE 99; RESP 16; TEMP 98.4
--- NOTE | 2024-01-01 12:09 | P.PN ---
Subjective Progress Note Date: 01/01/24 01-01-24 Principal diagnosis: left breast IDC 2022 [id number] 10-30-23 Lizette is a 78 year old white female seen in consultation for Dr. Rothman regarding a left breast invasive ductal cancer. She had a bilateral mammogram on 05-21-22 which led to further work up of the left breast. A 1.5 cm lesion was seen at the 9 O clock position for which biopsy on 06-11-22 revealed a grade 3 tripple (-) invasive ductal cancer. This was a routine mammogram. She did not feel anything of concern in her breast. She was not complaining of any nipple discharge or skin changes. She had never had any surgery on her breast. She underwent a left breast lumpectomy and SNB on 07-29-22. Pathology revealed a 1.5 cm lesion of invasive ductal cancer, all margins (-). She had 4 nodes removed all (-). She is not complaining of any new lumps masses or nodules of concern in either breast. The patient had a history of Hodgkin's lymphoma in 2017 treated with chemo and radiation. Note medical oncology 09-08-23 reviewed; received TC chemotherapy she completed 4 sessions completed radiation December 2022 Aspiration Seroma of the left breast was performed on 05-08-2023 400 cc of serous fluid Repeat aspiration on 06-05-2023 revealed 64 cc of serous fluid 06-18-23 45 cc of fluid aspirated The patient underwent a bilateral mammogram on 06-18-2023 BIRAD 2 seroma was aspirated on 07-09-2023 7 cc of fluid aspirated 08-10-23 70 CC seroma aspirated 01-01-24 Lizette is an 78-year-old white female status post left breast lumpectomy and sentinel node biopsy on 07-29-2022. She has had a seroma aspirated from this site on several occasions. She returns today for evaluation of the breast. Left breast lumpectomy and sentinel node biopsy on 07-29-2022. Pathology revealed a 1.5 cm lesion invasive ductal carcinoma all margins negative, 4 nodes removed all negative She notes some fullness in the left breast at the area of the lumpectomy site. Otherwise no dominant masses or nodules of concern in either breast. Completed chemo and radiation therapy for Hodgkin's disease in 2017 Received TC chemotherapy completed 4 sessions in November 2022 for the left breast cancer completed radiation therapy December 2022 Caffiene: 2 cups/day nicotine: none chocolate: weekly BCP: 3 years hormones: none Family History; 3 sisters: breast cancer brother : brain cancer patient lymphoma told it was cured treated with chemo and radiation Hormonal History: menarche: 10 breast fed: no, age at first : 17 menopause: hysterectomy at 45 no cancer Surgicall history: Hysterectomy lymphoma Medical History: CVA lymphoma HTN osteoarthritis Social History: nicotine: none alcohol: occasional drugs: none - Constitutional Constitutional: Denies chills, Denies fever - EENT Comment: eye surgery ? type of surgery Ears: bilateral: decreased hearing (hearing aids), deny: tinnitus Ears, nose, mouth and throat: Denies headache, Denies sore throat - Breasts Breasts: bilateral: as per HPI - Cardiovascular Cardiovascular: Denies chest pain, Denies shortness of breath - Respiratory Respiratory: Denies cough - Gastrointestinal Gastrointestinal: Denies abdominal pain, Denies diarrhea, Denies nausea, Denies vomiting - Genitourinary (Female) Genitourinary: Denies dysuria, Denies hematuria - Menstruation Menstruation: Reports postmenopausal - Musculoskeletal Comment: sciatic nerve pain - Integumentary Integumentary: Denies pruritus, Denies rash - Neurological Neurological: Denies numbness, Denies weakness - Psychiatric Psychiatric: Denies anxiety, Denies depression - Endocrine Endocrine: Denies fatigue, Denies weight change - Hematologic/Lymphatic Comment: none - Allergic/Immunologic Allergic/Immunologic: Reports as per HPI Past Medical History Past Medical History: Cancer, Hyperlipidemia, Hypertension, Osteoarthritis (OA) Additional Past Medical History / Comment(s): Hodgkins's Lymphoma. RT Sacroiliac Joint Arthritis. BORDERLINE HIGH CHOLESTEROL. History of Any Multi-Drug Resistant Organisms: None Reported Past Surgical History: Adenoidectomy, Hysterectomy, Tonsillectomy, Tubal Ligation Additional Past Surgical History / Comment(s): CERVICAL Lymph node bx, Eye surgery for cysts. BONE MARROW BIOPSY. Past Anesthesia/Blood Transfusion Reactions: No Reported Reaction Additional Past Anesthesia/Blood Transfusion Reaction / Comment(s): unknown family hx . no hx blood transfusion. Past Psychological History: No Psychological Hx Reported Smoking Status: Former smoker Past Alcohol Use History: Rare Additional Past Alcohol Use History / Comment(s): quit smoking over 54 years ago, smoked very short time as a senior in high school. Past Drug Use History: None Reported - Past Family History Sister(s) Family Medical History: Cancer Additional Family Medical History / Comment(s): 3 sisters hx breast CA Mother Family Medical History: No Reported History Father Family Medical History: No Reported History Medications and Allergies Home Medications Medication Instructions Recorded Confirmed Type amLODIPine [Norvasc] 10 mg PO QAM 06/20/16 06/27/22 History Losartan [Cozaar] 75 mg PO DAILY 07/29/17 06/27/22 History Biotin 5 mg PO DAILY 03/06/18 06/27/22 History Cholecalciferol (Vitamin D3) 2,000 unit PO DAILY 03/06/18 06/27/22 History [Vitamin D3] Tumeric (Unknown) 1 tab PO DAILY 03/06/18 06/27/22 History Aspirin [Adult Low Dose Aspirin EC] 81 mg PO DAILY 05/27/22 06/27/22 History Atorvastatin [Lipitor] 80 mg PO HS 06/27/22 06/27/22 History Cholecalciferol [Vitamin D3 (125 125 mcg PO DAILY 06/27/22 06/27/22 History Mcg = 5000 Iu)] Escitalopram [Lexapro] 10 mg PO DAILY 06/27/22 06/27/22 History Mv,Calcium,Min/Iron/Folic/Vitk 1 each PO DAILY 06/27/22 06/27/22 History [One-A-Day Women's Complete Tab] Allergies Allergy/AdvReac Type Severity Reaction Status Date / Time No Known Allergies Allergy Verified 06/27/22 12:23 Objective - Vital Signs Vital signs: Vital Signs Temp 98.4 F 01/01/24 11:43 Pulse 99 01/01/24 11:43 Resp 16 01/01/24 11:43 BP 92/65 01/01/24 11:43 Pulse Ox 96 01/01/24 11:43 FiO2 Intake & Output 12/31/23 01/01/24 01/01/24 18:59 06:59 18:59 Weight 56.699 kg - Constitutional General appearance: Present: cooperative - EENT Eyes: Present: EOMI ENT: Present: hearing grossly normal - Neck Neck: Present: normal ROM - Respiratory Respiratory: bilateral: CTA - Cardiovascular Rhythm: regular Heart sounds: normal: S1, S2 - Integumentary Integumentary: Present: normal turgor - Musculoskeletal Musculoskeletal: Present: gait normal - Psychiatric Psychiatric: Present: A&O x's 3, appropriate affect, intact judgment & insight - Additional findings Additional findings: Breast Exam: Bra: 36D Inspection: Postoperative changes left breast Right breast grade 2/3 ptosis, left breast grade 2/3 ptosis Palpation: Right breast: Multi positional exam no dominant masses or nodules of concern Right axilla: No adenopathy of concern Left breast: Multi positional exam postsurgical and radiation changes, firmness in the area of the lumpectomy most likely consistent with a seroma Left axilla: No adenopathy of concern Assessment and Plan Assessment: Impression: T1 N0 M0 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 An 18-gauge needle on a cc syringe was used to aspirate 38 cc of serosanguinous fluid. There appeared to be complete resolution of the seroma. Follow-up in 8 weeks CC: Dr. Rothman
== END ==
LOC: WWCWWP 10:55
PROVIDERS: ATTEND Surgery
DX: N60.19 Diffuse cystic mastopathy of unspecified breast (principal); I10 Essential (primary) hypertension; Z80.3 Family history of malignant neoplasm of breast; Z85.3 Personal history of malignant neoplasm of breast; Z85.71 Personal history of Hodgkin lymphoma; Z86.73 Personal history of transient ischemic attack (TIA), and cerebral infarction without residual deficits; Z92.3 Personal history of irradiation; Z92.21 Personal history of antineoplastic chemotherapy; Z87.891 Personal history of nicotine dependence; Z79.899 Other long term (current) drug therapy

== ENCOUNTER → 2024-04-22 | Outpatient (CLI) | payer MEDICARE ==
[2024-04-22 09:30] VITALS: BP 149/78; PULSE 85; RESP 17; TEMP 98.1
--- NOTE | 2024-04-22 09:49 | P.PN ---
Subjective Progress Note Date: 04/22/24 Principal diagnosis: left breast IDC 2022 [id number] 04-22-24 Principal diagnosis: left breast IDC 2022 [id number] 10-30-23 Lizette is a 78 year old white female seen in consultation for Dr. Rothman regarding a left breast invasive ductal cancer. She had a bilateral mammogram on 05-21-22 which led to further work up of the left breast. A 1.5 cm lesion was seen at the 9 O clock position for which biopsy on 06-11-22 revealed a grade 3 tr ipple (-) invasive ductal cancer. This was a routine mammogram. She did not feel anything of concern in her breast. She was not complaining of any nipple discharge or skin changes. She had never had any surgery on her breast. She underwent a left breast lumpectomy and SNB on 07-29-22. Pathology revealed a 1.5 cm lesion of invasive ductal cancer, all margins (-). She had 4 nodes removed all (-). She is not complaining of any new lumps masses or nodules of concern in either breast. The patient had a history of Hodgkin's lymphoma in 2017 treated with chemo and radiation. Note medical oncology 09-08-23 reviewed; received TC chemotherapy she completed 4 sessions completed radiation December 2022 Aspiration Seroma of the left breast was performed on 05-08-2023 400 cc of serous fluid Repeat aspiration on 06-05-2023 revealed 64 cc of serous fluid 06-18-23 45 cc of fluid aspirated The patient underwent a bilateral mammogram on 06-18-2023 BIRAD 2 seroma was aspirated on 07-09-2023 7 cc of fluid aspirated 08-10-23 70 CC seroma aspirated 01-01-24 Lizette is an 78-year-old white female status post left breast lumpectomy and sentinel node biopsy on 07-29-2022. She has had a seroma aspirated from this site on several occasions. She returns today for evaluation of the breast. Left breast lumpectomy and sentinel node biopsy on 07-29-2022. Pathology revealed a 1.5 cm lesion invasive ductal carcinoma all margins negative, 4 nodes removed all negative She notes some fullness in the left breast at the area of the lumpectomy site. Otherwise no dominant masses or nodules of concern in either breast. Completed chemo and radiation therapy for Hodgkin's disease in 2017 Received TC chemotherapy completed 4 sessions in November 2022 for the left breast cancer completed radiation therapy December 2022 04-22-24 Lizette is an 78-year-old white female status post left breast lumpectomy and sentinel node biopsy on 07-29-2022. She has had a seroma aspirated from this site on several occasions. She returns today for evaluation of the breast. Left breast lumpectomy and sentinel node biopsy on 07-29-2022. Pathology revealed a 1.5 cm lesion invasive ductal carcinoma all margins negative, 4 nodes removed all negative She notes some fullness in the left breast at the area of the lumpectomy site. Otherwise no dominant masses or nodules of concern in either breast. Completed chemo and radiation therapy for Hodgkin's disease in 2016 Received TC chemotherapy completed 4 sessions in November 2022 for the left breast cancer completed radiation therapy December 2022 38 Cc of serous fluid aspirated from the left breast on her last visit of 01-01-2024 At this time the patient complains of some fullness in the breast near the the lumpectomy site most likely consistent with seroma, no other new lumps masses or nodules of concern note radiation oncology reviewed 03-16-24 completed course of radiation therapy on note medical oncology 03-24-24 reviewed Caffiene: 2 cups/day nicotine: none chocolate: weekly BCP: 3 years hormones: none Family History; 3 sisters: breast cancer brother : brain cancer patient lymphoma told it was cured treated with chemo and radiation Hormonal History: menarche: 10 breast fed: no, age at first : 17 menopause: hysterectomy at 45 no cancer Surgicall history: Hysterectomy lymphoma Medical History: CVA lymphoma HTN osteoarthritis Social History: nicotine: none alcohol: occasional drugs: none - Constitutional Constitutional: Denies chills, Denies fever - EENT Comment: eye surgery ? type of surgery Ears: bilateral: decreased hearing (hearing aids), deny: tinnitus Ears, nose, mouth and throat: Denies headache, Denies sore throat - Breasts Breasts: bilateral: as per HPI - Cardiovascular Cardiovascular: Denies chest pain, Denies shortness of breath - Respiratory Respiratory: Denies cough - Gastrointestinal Gastrointestinal: Denies abdominal pain, Denies diarrhea, Denies nausea, Denies vomiting - Genitourinary (Female) Genitourinary: Denies dysuria, Denies hematuria - Menstruation Menstruation: Reports postmenopausal - Musculoskeletal Comment: sciatic nerve pain - Integumentary Integumentary: Denies pruritus, Denies rash - Neurological Neurological: Denies numbness, Denies weakness - Psychiatric Psychiatric: Denies anxiety, Denies depression - Endocrine Endocrine: Denies fatigue, Denies weight change - Hematologic/Lymphatic Comment: none - Allergic/Immunologic Allergic/Immunologic: Reports as per HPI Past Medical History Past Medical History: Cancer, Hyperlipidemia, Hypertension, Osteoarthritis (OA) Additional Past Medical History / Comment(s): Hodgkins's Lymphoma. RT Sacroiliac Joint Arthritis. BORDERLINE HIGH CHOLESTEROL. History of Any Multi-Drug Resistant Organisms: None Reported Past Surgical History: Adenoidectomy, Hysterectomy, Tonsillectomy, Tubal Ligation Additional Past Surgical History / Comment(s): CERVICAL Lymph node bx, Eye surgery for cysts. BONE MARROW BIOPSY. Past Anesthesia/Blood Transfusion Reactions: No Reported Reaction Additional Past Anesthesia/Blood Transfusion Reaction / Comment(s): unknown family hx . no hx blood transfusion. Past Psychological History: No Psychological Hx Reported Smoking Status: Former smoker Past Alcohol Use History: Rare Additional Past Alcohol Use History / Comment(s): quit smoking over 54 years ago, smoked very short time as a senior in high school. Past Drug Use History: None Reported - Past Family History Sister(s) Family Medical History: Cancer Additional Family Medical History / Comment(s): 3 sisters hx breast CA Mother Family Medical History: No Reported History Father Family Medical History: No Reported History Medications and Allergies Home Medications Medication Instructions Recorded Confirmed Type amLODIPine [Norvasc] 10 mg PO QAM 06/20/16 06/27/22 History Losartan [Cozaar] 75 mg PO DAILY 07/29/17 06/27/22 History Biotin 5 mg PO DAILY 03/06/18 06/27/22 History Cholecalciferol (Vitamin D3) 2,000 unit PO DAILY 03/06/18 06/27/22 History [Vitamin D3] Tumeric (Unknown) 1 tab PO DAILY 03/06/18 06/27/22 History Aspirin [Adult Low Dose Aspirin EC] 81 mg PO DAILY 05/27/22 06/27/22 History Atorvastatin [Lipitor] 80 mg PO HS 06/27/22 06/27/22 History Cholecalciferol [Vitamin D3 (125 125 mcg PO DAILY 06/27/22 06/27/22 History Mcg = 5000 Iu)] Escitalopram [Lexapro] 10 mg PO DAILY 06/27/22 06/27/22 History Mv,Calcium,Min/Iron/Folic/Vitk 1 each PO DAILY 06/27/22 06/27/22 History [One-A-Day Women's Complete Tab] Allergies Allergy/AdvReac Type Severity Reaction Status Date / Time No Known Allergies Allergy Verified 06/27/22 12:23 Objective - Vital Signs Vital signs: Vital Signs Temp 98.1 F 04/22/24 09:28 Pulse 85 04/22/24 09:28 Resp 17 04/22/24 09:28 BP 149/78 04/22/24 09:28 Pulse Ox 95 04/22/24 09:28 FiO2 Intake & Output 04/21/24 04/22/24 04/22/24 18:59 06:59 18:59 Weight 57.606 kg - Constitutional General appearance: Present: cooperative - EENT Eyes: Present: EOMI ENT: Present: hearing grossly normal - Neck Neck: Present: normal ROM - Respiratory Respiratory: bilateral: CTA - Cardiovascular Rhythm: regular Heart sounds: normal: S1, S2 - Integumentary Integumentary: Present: normal turgor - Musculoskeletal Musculoskeletal: Present: gait normal - Psychiatric Psychiatric: Present: A&O x's 3, appropriate affect, intact judgment & insight - Additional findings Additional findings: Breast Exam: Bra: 36D Inspection: Postoperative changes left breast Right breast grade 2/3 ptosis, left breast grade 2/3 ptosis Palpation: Right breast: Multi positional exam no dominant masses or nodules of concern Right axilla: No adenopathy of concern Left breast: Multi positional exam postsurgical and radiation changes, firmness in the area of the lumpectomy most likely consistent with a seroma Left axilla: No adenopathy of concern Assessment and Plan Assessment: Impression: T1 N0 M0 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 An 18-gauge needle on a cc syringe was used to aspirate 42 cc of serosanguinous fluid. There appeared to be complete resolution of the seroma. CC: Dr. Rothman
== END ==
LOC: WWCWWP 08:58
PROVIDERS: ATTEND Surgery
DX: N60.19 Diffuse cystic mastopathy of unspecified breast (principal); I10 Essential (primary) hypertension; Z92.3 Personal history of irradiation; Z92.21 Personal history of antineoplastic chemotherapy; Z86.73 Personal history of transient ischemic attack (TIA), and cerebral infarction without residual deficits; Z85.71 Personal history of Hodgkin lymphoma; Z87.891 Personal history of nicotine dependence

== ENCOUNTER → 2024-05-26 | Outpatient (CLI) | payer MEDICARE ==
[2024-05-26 10:26] VITALS: BP 99/65; PULSE 91; RESP 16; TEMP 97.9
--- NOTE | 2024-05-26 10:49 | P.PN ---
Subjective Progress Note Date: 05/26/24 Principal diagnosis: left breast IDC 2022 [id number] 04/22/24 Principal diagnosis: left breast IDC 2022 [id number] 04-22-24 Principal diagnosis: left breast IDC 2022 [id number] 10-30-23 Lizette is a 78 year old white female seen in consultation for Dr. Rothman regarding a left breast invasive ductal cancer. She had a bilateral mammogram on 05-21-22 which led to further work up of the left breast. A 1.5 cm lesion was seen at the 9 O clock position for which biopsy on 06-11-22 revealed a grade 3 tripple (-) invasive ductal cancer. This was a routine mammogram. She did not feel anything of concern in her breast. She was not complaining of any nipple discharge or skin changes. She had never had any surgery on her breast. She underwent a left breast lumpectomy and SNB on 07-29-22. Pathology revealed a 1.5 cm lesion of invasive ductal cancer, all margins (-). She had 4 nodes removed all (-). She is not complaining of any new lumps masses or nodules of concern in either breast. The patient had a history of Hodgkin's lymphoma in 2017 treated with chemo and radiation. Note medical oncology 09-08-23 reviewed; received TC chemotherapy she completed 4 sessions completed radiation December 2022 Aspiration Seroma of the left breast was performed on 05-08-2023 400 cc of serous fluid Repeat aspiration on 06-05-2023 revealed 64 cc of serous fluid 06-18-23 45 cc of fluid aspirated The patient underwent a bilateral mammogram on 06-18-2023 BIRAD 2 seroma was aspirated on 07-09-2023 7 cc of fluid aspirated 08-10-23 70 CC seroma aspirated 01-01-24 Lizette is an 78-year-old white female status post left breast lumpectomy and sentinel node biopsy on 07-29-2022. She has had a seroma aspirated from this site on several occasions. She returns today for evaluation of the breast. Left breast lumpectomy and sentinel node biopsy on 07-29-2022. Pathology revealed a 1.5 cm lesion invasive ductal carcinoma all margins negative, 4 nodes removed all negative She notes some fullness in the left breast at the area of the lumpectomy site. Otherwise no dominant masses or nodules of concern in either breast. Completed chemo and radiation therapy for Hodgkin's disease in 2017 Received TC chemotherapy completed 4 sessions in November 2022 for the left breast cancer completed radiation therapy December 2022 04-22-24 Lizette is an 78-year-old white female status post left breast lumpectomy and sentinel node biopsy on 07-29-2022. She has had a seroma aspirated from this site on several occasions. She returns today for evaluation of the breast. Left breast lumpectomy and sentinel node biopsy on 07-29-2022. Pathology revealed a 1.5 cm lesion invasive ductal carcinoma all margins negative, 4 nodes removed all negative She notes some fullness in the left breast at the area of the lumpectomy site. Otherwise no dominant masses or nodules of concern in either breast. Completed chemo and radiation therapy for Hodgkin's disease in 2017 Received TC chemotherapy completed 4 sessions in November 2022 for the left breast cancer completed radiation therapy December 2022 38 Cc of serous fluid aspirated from the left breast on her last visit of 01-01-2024 At this time the patient complains of some fullness in the breast near the the lumpectomy site most likely consistent with seroma, no other new lumps masses or nodules of concern note radiation oncology reviewed 03-16-24 completed course of radiation therapy on note medical oncology 03-24-24 reviewed 05-26-24 Lizette is an 78-year-old white female status post left breast lumpectomy and sentinel node biopsy on 07-29-2022. She has had a seroma aspirated from this site on several occasions. She returns today for evaluation of the breast. Left breast lumpectomy and sentinel node biopsy on 07-29-2022. Pathology revealed a 1.5 cm lesion invasive ductal carcinoma all margins negative, 4 nodes removed all negative She notes some fullness in the left breast at the area of the lumpectomy site. Otherwise no dominant masses or nodules of concern in either breast. Completed chemo and radiation therapy for Hodgkin's disease in 2016 Received TC chemotherapy completed 4 sessions in November 2022 for the left breast cancer completed radiation therapy December 2022 38 Cc of serous fluid aspirated from the left breast on her visit of 01-01-2024 At this time the patient complains of some fullness in the breast near the the lumpectomy site most likely consistent with seroma, no other new lumps masses or nodules of concern 42 CC fluid aspirated on 04-22-24 50 cc fluid aspirated on 05-26-24 note radiation oncology 03-16-24 completed course of radiation therapy on note medical oncology 03-24-24 She is seen today prior to mammogram to evaluate for possible seroma left breast Caffiene: 2 cups/day nicotine: none chocolate: weekly BCP: 3 years hormones: none Family History; 3 sisters: breast cancer brother : brain cancer patient lymphoma told it was cured treated with chemo and radiation Hormonal History: menarche: 10 breast fed: no, age at first : 17 menopause: hysterectomy at 45 no cancer Surgicall history: Hysterectomy lymphoma Medical History: CVA lymphoma HTN osteoarthritis Social History: nicotine: none alcohol: occasional drugs: none - Constitutional Constitutional: Denies chills, Denies fever - EENT Comment: eye surgery ? type of surgery Ears: bilateral: decreased hearing (hearing aids), deny: tinnitus Ears, nose, mouth and throat: Denies headache, Denies sore throat - Breasts Breasts: bilateral: as per HPI - Cardiovascular Cardiovascular: Denies chest pain, Denies shortness of breath - Respiratory Respiratory: Denies cough - Gastrointestinal Gastrointestinal: Denies abdominal pain, Denies diarrhea, Denies nausea, Denies vomiting - Genitourinary (Female) Genitourinary: Denies dysuria, Denies hematuria - Menstruation Menstruation: Reports postmenopausal - Musculoskeletal Comment: sciatic nerve pain - Integumentary Integumentary: Denies pruritus, Denies rash - Neurological Neurological: Denies numbness, Denies weakness - Psychiatric Psychiatric: Denies anxiety, Denies depression - Endocrine Endocrine: Denies fatigue, Denies weight change - Hematologic/Lymphatic Comment: none - Allergic/Immunologic Allergic/Immunologic: Reports as per HPI Past Medical History Past Medical History: Cancer, Hyperlipidemia, Hypertension, Osteoarthritis (OA) Additional Past Medical History / Comment(s): Hodgkins's Lymphoma. RT Sacroiliac Joint Arthritis. BORDERLINE HIGH CHOLESTEROL. History of Any Multi-Drug Resistant Organisms: None Reported Past Surgical History: Adenoidectomy, Hysterectomy, Tonsillectomy, Tubal Ligation Additional Past Surgical History / Comment(s): CERVICAL Lymph node bx, Eye surgery for cysts. BONE MARROW BIOPSY. Past Anesthesia/Blood Transfusion Reactions: No Reported Reaction Additional Past Anesthesia/Blood Transfusion Reaction / Comment(s): unknown family hx . no hx blood transfusion. Past Psychological History: No Psychological Hx Reported Smoking Status: Former smoker Past Alcohol Use History: Rare Additional Past Alcohol Use History / Comment(s): quit smoking over 54 years ago, smoked very short time as a senior in high school. Past Drug Use History: None Reported - Past Family History Sister(s) Family Medical History: Cancer Additional Family Medical History / Comment(s): 3 sisters hx breast CA Mother Family Medical History: No Reported History Father Family Medical History: No Reported History Medications and Allergies Home Medications Medication Instructions Recorded Confirmed Type amLODIPine [Norvasc] 10 mg PO QAM 06/20/16 06/27/22 History Losartan [Cozaar] 75 mg PO DAILY 07/29/17 06/27/22 History Biotin 5 mg PO DAILY 03/06/18 06/27/22 History Cholecalciferol (Vitamin D3) 2,000 unit PO DAILY 03/06/18 06/27/22 History [Vitamin D3] Tumeric (Unknown) 1 tab PO DAILY 03/06/18 06/27/22 History Aspirin [Adult Low Dose Aspirin EC] 81 mg PO DAILY 05/27/22 06/27/22 History Atorvastatin [Lipitor] 80 mg PO HS 06/27/22 06/27/22 History Cholecalciferol [Vitamin D3 (125 125 mcg PO DAILY 06/27/22 06/27/22 History Mcg = 5000 Iu)] Escitalopram [Lexapro] 10 mg PO DAILY 06/27/22 06/27/22 History Mv,Calcium,Min/Iron/Folic/Vitk 1 each PO DAILY 06/27/22 06/27/22 History [One-A-Day Women's Complete Tab] Allergies Allergy/AdvReac Type Severity Reaction Status Date / Time No Known Allergies Allergy Verified 06/27/22 12:23 Objective - Vital Signs Vital signs: Vital Signs Temp 97.9 F 05/26/24 10:24 Pulse 91 05/26/24 10:24 Resp 16 05/26/24 10:24 BP 99/65 05/26/24 10:24 Pulse Ox 95 05/26/24 10:24 FiO2 Intake & Output 04/02/25 04/03/25 04/03/25 18:59 06:59 18:59 Weight 58.967 kg - Constitutional General appearance: Present: cooperative - EENT Eyes: Present: EOMI ENT: Present: hearing grossly normal - Neck Neck: Present: normal ROM - Respiratory Respiratory: bilateral: CTA - Cardiovascular Rhythm: regular Heart sounds: normal: S1, S2 - Gastrointestinal General gastrointestinal: Present: soft - Integumentary Integumentary: Present: normal turgor - Musculoskeletal Musculoskeletal: Present: gait normal - Psychiatric Psychiatric: Present: A&O x's 3, appropriate affect, intact judgment & insight - Additional findings Additional findings: Breast Exam: Bra: 36D Inspection: Postoperative changes left breast Right breast grade 2/3 ptosis, left breast grade 2/3 ptosis Palpation: Right breast: Multi positional exam no dominant masses or nodules of concern Right axilla: No adenopathy of concern Left breast: Multi positional exam postsurgical and radiation changes, firmness in the area of the lumpectomy most likely consistent with a seroma Left axilla: No adenopathy of concern Assessment and Plan Assessment: Impression: T1 N0 M0 triple negative G3 left breast invasive ductal carcinoma 9:00; 2022 Prior history of lymphoma Family history of cancer Fibrocystic breast changes Hypertension Prior history of CVA Patient has completed chemotherapy completed radiation therapy Probable seroma left breast Plan: Aspiration seroma after informed consent follow medical oncology follow with radiation oncology follow up in prior to mammogram for potential aspiration bilateral mammogram May 2024; with appointment after that Following informed consent the area of concern in the left breast was prepped using alcohol. An 18-gauge needle on a cc syringe was used to aspirate 50 cc of serosanguinous fluid. There appeared to be complete resolution of the seroma. CC: Dr. Rothman
== END ==
LOC: WWCWWP 10:18
PROVIDERS: ATTEND Surgery
DX: C50.912 Malignant neoplasm of unspecified site of left female breast (principal); N60.19 Diffuse cystic mastopathy of unspecified breast; I10 Essential (primary) hypertension; Z92.21 Personal history of antineoplastic chemotherapy; Z85.71 Personal history of Hodgkin lymphoma; Z92.3 Personal history of irradiation; Z86.73 Personal history of transient ischemic attack (TIA), and cerebral infarction without residual deficits; Z87.891 Personal history of nicotine dependence

== ENCOUNTER → 2024-06-08 | Outpatient (CLI) | payer MEDICARE ==
--- NOTE | 2024-06-08 08:45 | MM ---
Reason for Exam: Hx of breast cancer, conservation therapy. Last screening mammogram was performed 12 month(s) ago. Patient History: Menarche at age 10. First Full-Term at age 17. Left ovary removed at age 46. Right ovary removed at age 46. Hysterectomy at age 46. Postmenopausal. Other cancer, age 71. Breast cancer, left, age 76. Breast cancer, left, age 77. Previous chest radiation therapy at age 77. Previous chemotherapy at age 77. 07/29/2022, Lumpectomy on the Left side. 07/29/2022, Malignant MG pre op needle loc LT on the left side. 06/11/2022, Malignant US biopsy breast VAD LT on the left side. Sister had breast cancer. Sister had breast cancer. Sister had breast cancer. Tissue Density: The breasts are heterogeneously dense, which may obscure small masses. Findings: Analyzed By CAD. Operative changes of left-sided lumpectomy. There appears to be recurrent seroma upper inner left breast measuring 6.0 x 5.5 x 5.2 cm. No right-sided breast masses are present. No suspicious microcalcifications are evident. Overall Assessment: Benign, BI-RAD 2 Management: Diagnostic Mammogram of both breasts in 1 year. . Results were given to the patient verbally at the time of exam. Patient should continue monthly self-breast exams. A clinical breast exam by your physician is recommended on an annual basis. This exam should not preclude additional follow-up of suspicious palpable abnormalities. Note on Sarahi scores and lifetime risk: 1. A Sarahi score greater than 3% is considered moderate risk. If this is the case, consider specialist referral to assess eligibility for a risk reducing agent. 2. If overall lifetime risk for the development of breast cancer is 20% or higher, the patient may qualify for future screening with alternating mammogram and breast MRI. [facility], , 06/08/2024 8:42 AM. Electronically signed and approved by: Robert Rubio M.D. Radiologis
== END | disposition home or self-care (01) ==
LOC: RADMAMWWP 08:17
PROVIDERS: ATTEND Surgery
DX: R92.333 Mammographic heterogeneous density, bilateral breasts (principal); Z85.3 Personal history of malignant neoplasm of breast; Z78.0 Asymptomatic menopausal state; Z80.3 Family history of malignant neoplasm of breast
CPT/HCPCS: 77062; 77066

== ENCOUNTER → 2024-06-23 | Outpatient (CLI) | payer MEDICARE ==
[2024-06-23 13:33] VITALS: BP 154/82; PULSE 84; RESP 17; TEMP 98.4
--- NOTE | 2024-06-23 13:51 | P.PN ---
Subjective Progress Note Date: 06/23/24 05/26/24 Principal diagnosis: left breast IDC 2022 [id number] 04/22/24 Principal diagnosis: left breast IDC 2022 [id number] 04-22-24 Principal diagnosis: left breast IDC 2022 [id number] 10-30-23 Lizette is a 78 year old white female seen in consultation for Dr. Rothman regarding a left breast invasive ductal cancer. She had a bilateral mammogram on 05-21-22 which led to further work up of the left breast. A 1.5 cm lesion was seen at the 9 O clock position for which biopsy on 06-11-22 revealed a grade 3 tripple (-) invasive ductal cancer. This was a routine mammogram. She did not feel anything of concern in her breast. She was not complaining of any nipple discharge or skin changes. She had never had any surgery on her breast. She underwent a left breast lumpectomy and SNB on 07-29-22. Pathology revealed a 1.5 cm lesion of invasive ductal cancer, all margins (-). She had 4 nodes removed all (-). She is not complaining of any new lumps masses or nodules of concern in either breast. The patient had a history of Hodgkin's lymphoma in 2017 treated with chemo and radiation. Note medical oncology 09-08-23 reviewed; received TC chemotherapy she completed 4 sessions completed radiation December 2022 Aspiration Seroma of the left breast was performed on 05-08-2023 400 cc of serous fluid Repeat aspiration on 06-05-2023 revealed 64 cc of serous fluid 06-18-23 45 cc of fluid aspirated The patient underwent a bilateral mammogram on 06-18-2023 BIRAD 2 seroma was aspirated on 07-09-2023 7 cc of fluid aspirated 08-10-23 70 CC seroma aspirated 01-01-24 Lizette is an 78-year-old white female status post left breast lumpectomy and sentinel node biopsy on 07-29-2022. She has had a seroma aspirated from this site on several occasions. She returns today for evaluation of the breast. Left breast lumpectomy and sentinel node biopsy on 07-29-2022. Pathology revealed a 1.5 cm lesion invasive ductal carcinoma all margins negative, 4 nodes removed all negative She notes some fullness in the left breast at the area of the lumpectomy site. Otherwise no dominant masses or nodules of concern in either breast. Completed chemo and radiation therapy for Hodgkin's disease in 2017 Received TC chemotherapy completed 4 sessions in November 2022 for the left breast cancer completed radiation therapy December 2022 04-22-24 Lizette is an 78-year-old white female status post left breast lumpectomy and sentinel node biopsy on 07-29-2022. She has had a seroma aspirated from this site on several occasions. She returns today for evaluation of the breast. Left breast lumpectomy and sentinel node biopsy on 07-29-2022. Pathology revealed a 1.5 cm lesion invasive ductal carcinoma all margins negative, 4 nodes removed all negative She notes some fullness in the left breast at the area of the lumpectomy site. Otherwise no dominant masses or nodules of concern in either breast. Completed chemo and radiation therapy for Hodgkin's disease in 2016 Received TC chemotherapy completed 4 sessions in November 2022 for the left breast cancer completed radiation therapy December 2022 38 Cc of serous fluid aspirated from the left breast on her last visit of 01-01-2024 At this time the patient complains of some fullness in the breast near the the lumpectomy site most likely consistent with seroma, no other new lumps masses or nodules of concern note radiation oncology reviewed 03-16-24 completed course of radiation therapy on note medical oncology 03-24-24 reviewed 05-26-24 Lizette is an 78-year-old white female status post left breast lumpectomy and sentinel node biopsy on 07-29-2022. She has had a seroma aspirated from this site on several occasions. She returns today for evaluation of the breast. Left breast lumpectomy and sentinel node biopsy on 07-29-2022. Pathology revealed a 1.5 cm lesion invasive ductal carcinoma all margins negative, 4 nodes removed all negative She notes some fullness in the left breast at the area of the lumpectomy site. Otherwise no dominant masses or nodules of concern in either breast. Completed chemo and radiation therapy for Hodgkin's disease in 2016 Received TC chemotherapy completed 4 sessions in November 2022 for the left breast cancer completed radiation therapy December 2022 38 Cc of serous fluid aspirated from the left breast on her visit of 01-01-2024 At this time the patient complains of some fullness in the breast near the the lumpectomy site most likely consistent with seroma, no other new lumps masses or nodules of concern 42 CC fluid aspirated on 04-22-24 50 cc fluid aspirated on 05-26-24 note radiation oncology 03-16-24 completed course of radiation therapy on note medical oncology 03-24-24 She is seen today prior to mammogram on 06-08-24 to evaluate for possible seroma left breast 06-23-24 06-08-24 bilateral mammogram BIRAD 2 Complaining of any new lumps masses or nodules in either breast but does have some fullness in the left breast consistent with prior seromas. Seromas present in the left breast on examination Following informed consent the area of concern in the left breast was prepped using alcohol. An 18-gauge needle on a 20 cc syringe was used to aspirate 43 cc of fluid. There was complete resolution of the seroma. Caffiene: 2 cups/day nicotine: none chocolate: weekly BCP: 3 years hormones: none Family History; 3 sisters: breast cancer brother : brain cancer patient lymphoma told it was cured treated with chemo and radiation Hormonal History: menarche: 10 breast fed: no, age at first : 17 menopause: hysterectomy at 45 no cancer Surgicall history: Hysterectomy lymphoma Medical History: CVA lymphoma HTN osteoarthritis Social History: nicotine: none alcohol: occasional drugs: none - Constitutional Constitutional: Denies chills, Denies fever - EENT Comment: eye surgery ? type of surgery Ears: bilateral: decreased hearing (hearing aids), deny: tinnitus Ears, nose, mouth and throat: Denies headache, Denies sore throat - Breasts Breasts: bilateral: as per HPI - Cardiovascular Cardiovascular: Denies chest pain, Denies shortness of breath - Respiratory Respiratory: Denies cough - Gastrointestinal Gastrointestinal: Denies abdominal pain, Denies diarrhea, Denies nausea, Denies vomiting - Genitourinary (Female) Genitourinary: Denies dysuria, Denies hematuria - Menstruation Menstruation: Reports postmenopausal - Musculoskeletal Comment: sciatic nerve pain - Integumentary Integumentary: Denies pruritus, Denies rash - Neurological Neurological: Denies numbness, Denies weakness - Psychiatric Psychiatric: Denies anxiety, Denies depression - Endocrine Endocrine: Denies fatigue, Denies weight change - Hematologic/Lymphatic Comment: none - Allergic/Immunologic Allergic/Immunologic: Reports as per HPI Past Medical History Past Medical History: Cancer, Hyperlipidemia, Hypertension, Osteoarthritis (OA) Additional Past Medical History / Comment(s): Hodgkins's Lymphoma. RT Sacroiliac Joint Arthritis. BORDERLINE HIGH CHOLESTEROL. History of Any Multi-Drug Resistant Organisms: None Reported Past Surgical History: Adenoidectomy, Hysterectomy, Tonsillectomy, Tubal Ligation Additional Past Surgical History / Comment(s): CERVICAL Lymph node bx, Eye surgery for cysts. BONE MARROW BIOPSY. Past Anesthesia/Blood Transfusion Reactions: No Reported Reaction Additional Past Anesthesia/Blood Transfusion Reaction / Comment(s): unknown family hx . no hx blood transfusion. Past Psychological History: No Psychological Hx Reported Smoking Status: Former smoker Past Alcohol Use History: Rare Additional Past Alcohol Use History / Comment(s): quit smoking over 54 years ago, smoked very short time as a senior in high school. Past Drug Use History: None Reported - Past Family History Sister(s) Family Medical History: Cancer Additional Family Medical History / Comment(s): 3 sisters hx breast CA Mother Family Medical History: No Reported History Father Family Medical History: No Reported History Medications and Allergies Home Medications Medication Instructions Recorded Confirmed Type amLODIPine [Norvasc] 10 mg PO QAM 06/20/16 06/27/22 History Losartan [Cozaar] 75 mg PO DAILY 07/29/17 06/27/22 History Biotin 5 mg PO DAILY 03/06/18 06/27/22 History Cholecalciferol (Vitamin D3) 2,000 unit PO DAILY 03/06/18 06/27/22 History [Vitamin D3] Tumeric (Unknown) 1 tab PO DAILY 03/06/18 06/27/22 History Aspirin [Adult Low Dose Aspirin EC] 81 mg PO DAILY 05/27/22 06/27/22 History Atorvastatin [Lipitor] 80 mg PO HS 06/27/22 06/27/22 History Cholecalciferol [Vitamin D3 (125 125 mcg PO DAILY 06/27/22 06/27/22 History Mcg = 5000 Iu)] Escitalopram [Lexapro] 10 mg PO DAILY 06/27/22 06/27/22 History Mv,Calcium,Min/Iron/Folic/Vitk 1 each PO DAILY 06/27/22 06/27/22 History [One-A-Day Women's Complete Tab] Allergies Allergy/AdvReac Type Severity Reaction Status Date / Time No Known Allergies Allergy Verified 06/27/22 12:23 Objective - Vital Signs Vital signs: Vital Signs Temp 98.4 F 06/23/24 13:30 Pulse 84 06/23/24 13:30 Resp 17 06/23/24 13:30 BP 154/82 06/23/24 13:30 Pulse Ox 95 06/23/24 13:30 FiO2 Intake & Output 06/22/24 06/23/24 06/23/24 18:59 06:59 18:59 Weight 58.06 kg - Exam limited exam today 06-23-24 - Constitutional General appearance: Present: cooperative - EENT Eyes: Present: EOMI ENT: Present: hearing grossly normal - Neck Neck: Present: normal ROM - Musculoskeletal Musculoskeletal: Present: gait normal - Psychiatric Psychiatric: Present: A&O x's 3, appropriate affect, intact judgment & insight - Additional findings Additional findings: Breast Exam: Bra: 36D Inspection: Postoperative changes left breast Right breast grade 2/3 ptosis, left breast grade 2/3 ptosis Palpation: Left breast: Multi positional exam postsurgical and radiation changes, firmness in the area of the lumpectomy most likely consistent with a seroma Left axilla: No adenopathy of concern Assessment and Plan Assessment: Impression: T1 N0 M0 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 An 18-gauge needle on a cc syringe was used to aspirate 43 cc of serosanguinous fluid. There appeared to be complete resolution of the seroma. CC: Dr. Rothman
== END ==
LOC: WWCWWP 13:19
PROVIDERS: ATTEND Surgery
DX: D05.12 Intraductal carcinoma in situ of left breast (principal); N60.19 Diffuse cystic mastopathy of unspecified breast; I10 Essential (primary) hypertension; Z86.73 Personal history of transient ischemic attack (TIA), and cerebral infarction without residual deficits; Z92.21 Personal history of antineoplastic chemotherapy; Z92.3 Personal history of irradiation; Z87.898 Personal history of other specified conditions; Z80.9 Family history of malignant neoplasm, unspecified; Z87.891 Personal history of nicotine dependence